=== PATIENT | female | born 1955 | race Caucasian/White ===

== ENCOUNTER 2024-01-15 08:56 | Outpatient (OUT) | payer MEDICARE, SELFPAY ==
[2024-01-15 09:36] LABS: Basophils Percent Auto 0.4 % (0.2-2.0); Eosinophils Absolute Auto 0.2 10^3/uL (0.0-0.7); Eosinophils Percent Auto 2.2 % (0.9-7.0); Hematocrit 44.4 % (36.0-48.0); Hemoglobin 14.7 g/dL (12.0-16.0); Immature Granulocytes Abs Auto 0.03 10^3/uL (0.00-0.03); Immature Granulocytes Pct Auto 0.4 % (0.0-0.5); Lymphocytes Absolute Auto 1.9 10^3/uL (1.2-3.8); Lymphocytes Percent Auto 28.1 % (20.5-60.0); Mean Corpuscular HGB Conc 33.1 g/dL (29.9-35.2); Mean Corpuscular Hemoglobin 30.6 pg (26.7-34.0); Mean Corpuscular Volume 92.5 fL (81.0-99.0); Mean Platelet Volume 9.2 fL (9.5-13.5); Monocytes Absolute Auto 0.5 10^3/uL (0.3-0.8); Monocytes Percent Auto 7.4 % (1.7-12.0); Neutrophils Absolute Auto 4.2 10^3/uL (1.4-6.5); Neutrophils Percent Auto 61.5 % (43.0-75.0); Platelet Count 290 10^3/uL (150-450); Red Cell Distribution Width 12.7 % (11.0-15.0); White Blood Count 6.8 10^3/uL (4.0-11.0)
[2024-01-15 10:06] LABS: Alanine Aminotransferase 27 U/L (14-59); Albumin Level 3.6 g/dL (3.4-5.0); Alkaline Phosphatase 97 U/L (46-116); Anion Gap 13.6; Aspartate Amino Transferase 16 U/L (15-37); BUN Creatinine Ratio 13.2; Bilirubin Total 0.6 mg/dL (0.2-1.0); Calcium 9.3 mg/dL (8.5-10.1); Chloride 106 mmol/L (98-107); Estimated GFR (African America >60 (>=60 mL/min/1.73m^2); Estimated GFR (Non-African Ame >60 (>=60 mL/min/1.73m^2); Free T3 2.03 pg/mL (2.18-3.98); Globulin 3.5 g/dL; Glucose 95 mg/dL (74-106); Potassium 4.6 mmol/L (3.5-5.1); Sodium 143 mmol/L (136-145); Thyroid Stimulating Hormone 2.135 uIU/mL (0.358-3.740); Total Protein 7.1 g/dL (6.4-8.2)
[2024-01-15 10:35] LABS: Estimated Average Glucose 117 mg/dL; Glycohemoglobin A1C 5.7 % (4.5-6.2)
== END 2024-01-15 08:57 | disposition home or self-care (01) ==
LOC: LAB 09:00
PROVIDERS: PCP Family Medicine; Visit Provider Family Medicine
DX: G47.33 Obstructive sleep apnea (adult) (pediatric) (principal); M17.9 Osteoarthritis of knee, unspecified; R53.83 Other fatigue; R73.09 Other abnormal glucose; D64.9 Anemia, unspecified; E03.9 Hypothyroidism, unspecified; I11.0 Hypertensive heart disease with heart failure
CPT/HCPCS: 36415; 80053; 83036; 83540; 83880; 84436; 84443; 84481; 85025

== ENCOUNTER 2024-01-24 08:54 | Outpatient (OUT) | payer MEDICARE, SELFPAY ==
--- OUTSIDE RECORDS SUMMARY | 2024-01-24 08:59 | XMS_ITS | CCD ---
Author Organization [facility] Care Team Providers Care Mail Handler Name Role Phone LIOR GILLIAM Unavailable Unavailable CLAUDINE YATES Unavailable Unavailable KINCAID EMILIANO G Unavailable Unavailable MARIELENA GASTELUM Unavailable Unavailable KINCAID, EMILIANO G Unavailable Unavailable EVETTE SHABAZZ DELILAH Unavailable Unavailab Lior Stephen Unavailable Unavailable CODI EMILIANO G Unavailable Unavailable EVETTE SHABAZZ Unavailable Unavailab Lior Stephen Unavailable Unavailable JOSE KINCAIDMELA G Unavailable Unavailable Lior Gilliam Unavailable Unavailable EVETTE SHABAZZ Unavailable Unavailab JOSE DiazMELA G Unavailable Unavailable EVETTE SHABAZZ Unavailable Unavailab Lior Stephen Unavailable Unavailable YO, DR TINAJERO Primary Care Unavailable NILL, DR WISEMAN Admitting Unavailable NILL, DR WISEMAN Consulting Unavailable NILL, DR WISEMAN Attending Unavailable REMEDIOS HILL Consulting Unavailable ALEXYS RASCON Consulting Unavailable MISC, DR MILLS Primary Care Unavailable NILL, DR WISEMAN Admitting Unavailable NILL, DR WISEMAN Attending Unavailable YO, DR TINAJERO Admitting Unavailable MISC, DR MILLS Primary Care Unavailable YO, DR TINAJERO Attending Unavailable YO, DR TINAJERO Admitting Unavailable YO, DR TINAJERO Primary Care Unavailable YO, DR TINAJERO Consulting Unavailable YO, DR TINAJERO Attending Unavailable WANDER, DR ALEXYS Lynch Consulting Unavailable AIDEN JENKINS Admitting Unavailable AIDEN JENKINS Consulting Unavailable MISC, DR MILLS Primary Care Unavailable AIDEN JENKINS Attending Unavailable AIDEN JENKINS Attending Unavailable AIDEN JENKINS Admitting Unavailable CRESCENCIO, DR MILLS Primary Care Unavailable WANDER, DR ALEXYS Lynch Consulting Unavailable AIDEN JENKINS Consulting Unavailable MISC, DR MILLS Primary Care Unavailable BRIANNE LOPEZ Attending Unavailabl e CLOBRIANNE SAWANT Admitting Unavailabl e BRIANNE LOPEZ Admitting Unavailabl e DR GENE PRATHER Primary Care Unavailable BRIANNE LOPEZ Attending Unavailabl e HOY, LIOR Primary Care Unavailable DonteGracy Attending Unavailable Donte Gracy Admitting Unavailable HOY, LIOR Attending Unavailable HOY, LIOR Admitting Unavailable HOY, LIOR Primary Care Unavailable HOY, LIOR Primary Care Unavailable Shendge, Vithal B Attending Unavailable Shendge, Vithal B Admitting Unavailable SHENDGE, VITHAL Referring Unavailable SHENDGE, VITHAL Attending Unavailable SHENDGE, VITHAL Attending Unavailable SHENDGE, VITHAL Attending Unavailable SHENDGE, VITHAL Referring Unavailable SHENDGE, VITHAL Referring Unavailable Allergies Allergy Classification Reported Allergen(s) Allergy Type Date of Onset Reaction(s) Facility (4 sources) Penicillins; Translations: [penicillins] Propensity to adverse reactions to drug (disorder) 3 [facility] Repository (1 source) bee venom Drug allergy (disorder) [facility] Repository (1 source) Penicillin Drug Allergy 0 [facility] Repository (1 source) Bee/Wasp/Ant venom; Translations: [Bee Stings] Propensity to adverse reactions (disorder) [facility] Repository (1 source) Bee pollen; Translations: [BEE POLLEN] Propensity to adverse reactions to drug (disorder) 4 [facility] Repository Problems Active Problems Problem Classification Problem Date Documented Da te Episodic/Chronic Deficiency and other anemia (4 sources) Iron deficiency anemia, unspecified; Translations: [IRON DEFICIENCY ANEMIA UNSPECIFIED] Onset: 07-19-2021 Episodic Diabetes mellitus with complications (5 sources) Type 2 diabetes mellitus with diabetic neuropathy, unspecified; Translations: [Type 2 diabetes mellitus with hyperglycemia] Onset: 10-10-2020 Chronic Diabetes mellitus without complication (1 source) Type 2 diabetes mellitus without complications; Translations: [TYPE 2 DM WITHOUT COMPLICATIONS] Onset: 07-25-2021 Chronic Digestive congenital anomalies (1 source) Other specified congenital malformations of intestine; Translations: [OTH SPEC CONGEN MALFORM INTESTINE] Onset: 07-25-2021 Chronic Disorders of lipid metabolism (2 sources) Pure hypercholesterolemia , unspecified; Translations: [Familial hypercholesterolemia ] Onset: 11-14-2020 Chronic Diverticulosis and diverticulitis (1 source) Diverticulosis of large intestine without perforation or abscess without bleeding; Translations: [DVRTCLOS LG INT NO PERF/ABSC W/O BL] Onset: 07-25-2021 Chronic Essential hypertension (1 source) Essential (primary) hypertension; Translations: [ESSENTIAL PRIMARY HYPERTENSION] Onset: 11-14-2020 Chronic Nonspecific chest pain (4 sources) Other chest pain; Translations: [OTHER CHEST PAIN] Onset: 09-12-2021 Episodic Osteoarthritis (2 sources) Unilateral primary osteoarthritis, left knee; Translations: [Unilateral primary osteoarthritis, left knee] Onset: 09-12-2022 Chronic Other aftercare (1 source) [facility] (current) use of aspirin; Translations: [PENITENTIARY CURRENT USE OF ASPIRIN] Onset: 07-25-2021 Episodic Other aftercare (1 source) 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; Translations: [OTH PENITENTIARY CURRENT DRUG THERAPY] Onset: 07-25-2021 Episodic Other connective tissue disease (2 sources) Presence of right artificial knee joint; Translations: [Presence of right artificial knee joint] Onset: 01-25-2023 Chronic Other gastrointestinal disorders (1 source) Bariatric surgery status; Translations: [BARIATRIC SURGERY STATUS] Onset: 07-25-2021 Episodic Other non-traumatic joint disorders (1 source) Pain in right shoulder; Translations: [Pain in right shoulder] Onset: 08-11-2017 Episodic Other nutritional; endocrine; and metabolic disorders (1 source) Obesity, unspecified; Translations: [OBESITY UNSPECIFIED] Onset: 07-25-2021 Chronic Other nutritional; endocrine; and metabolic disorders (3 sources) Body mass index (BMI) 45.0-49.9, adult; Translations: [BODY MASS INDEX BMI 45.0-49.9 ADULT] Onset: 07-25-2021 Chronic Other nutritional; endocrine; and metabolic disorders (2 sources) Morbid (severe) obesity with alveolar hypoventilation; Translations: [Morbid (severe) obesity with alveolar hypoventilation] Onset: 06-10-2023 Chronic Residual codes; unclassified (1 source) Obstructive sleep apnea (adult) (pediatric); Translations: [OBSTRUCTIVE SLEEP APNEA] Onset: 07-25-2021 Chronic Residual codes; unclassified (1 source) Acquired absence of both cervix and uterus; Translations: [ACQUIRED ABSENCE BOTH CERVIX AND UTERUS] Onset: 07-25-2021 Episodic Rheumatoid arthritis and related disease (1 source) Rheumatoid arthritis, unspecified; Translations: [RHEUMATOID ARTHRITIS UNSPECIFIED] Onset: 07-25-2021 Chronic Unclassified (1 source) Obesity, class 3; Translations: [Obesity, class 3] Onset: 01-13-2024 Past or Other Problems Problem Classification Problem Date Documented Da te Episodic/Chronic Other acquired deformities (2 sources) Varus deformity, not elsewhere classified, left knee; Translations: [Varus deformity, not elsewhere classified, left knee] Onset: 06-10-2023 Episodic Other lower respiratory disease (4 sources) Other forms of dyspnea; Translations: [OTHER FORMS OF DYSPNEA] Onset: 10-12-2020 Episodic Other non-traumatic joint disorders (2 sources) Pain in left knee; Translations: [Pain in left knee] Onset: 01-25-2023 Episodic Other nutritional; endocrine; and metabolic disorders (1 source) Overweight; Translations: [OVERWEIGHT] Onset: 11-14-2020 Episodic Residual codes; unclassified (1 source) Edema, unspecified; Translations: [EDEMA UNSPECIFIED] Onset: 11-14-2020 Episodic Superficial injury; contusion (3 sources) Blister (nonthermal), right lower leg, initial encounter; Translations: [Contusion of left knee, initial encounter] Onset: 11-14-2020 Episodic Unclassified (1 source) Obesity, class 3; Translations: [Obesity, class 3] Onset: 01-13-2024 Results Test Name Value Interpretation Reference Range Facility Follow-Upon 01-13-2024 Follow-Up [id number] Radha Boone 1955 F Date Provider Department Center 01/13/2024 [facility] No family history on file Level of Service:88130 AL OFFICE/OUTPATIENT ESTABLISHED MOD MDM 30 MIN (GC,57) Reason for Visit and Comments: Pain [136] Follow-up [181853] Pain [136] Follow-up [[id number]] [facility] 36on 09-12-2023 36 This was already approved and signed by me, future prescriptions have to come from her PCP, if seen by them. Thank you Aaron [facility] 36on 09-11-2023 36 Approving, but needs appt for additional refills. [facility] 36 Patient states medication was never called in and her call was never returned regarding request of motrin 800 Please call patient with further instruction thank you [facility] 36on 09-09-2023 36 [facility] for [facility] 09-09-2023 Refill [id number] Radha Boone Cally 1955 F Date Provider Department Center 09/09/2023 ATYIA BEARD [facility] OR[facility] MP[facility]THO No family history on file Reason for Visit and Comments: Med Refill [[id number]] [facility] Refillon 08-08-2023 Refill [id number] Radha Boone Cally 1955 F Date Provider Department Center 08/08/2023 [facility] No family history on file Reason for Visit and Comments: Med Refill [[id number]] [facility] Refillon 07-12-2023 Refill [id number] Radha Boone 1955 F Date Provider Department Center 07/12/2023 83NUPUR VANCE ORTHO MPORTHO No family history on file Reason for Visit and Comments: Med Refill [[id number]] [facility] Coding Queryon 06-20-2023 Coding Query [id number] [facility] Coding Summaryon 06-19-2023 Coding Summary HTMLBase 64 FbvswkmiDBd6sYc+PGhlY WQ+QC2PPTPnE16nrVSleI 7uV5LFSJoQYzgmVOGUVEy BNvTytiIgYU1thSRcOPYu IC8+RU2cATRdJzulsGPqb 0U3jKW6Z49iha4iAFcinN V8ZXLyGaPxdjwgw8bhsIf 6IDcuNmluOyBt SHQryC63YER1iL35Qu32k FNqhBXpy9iviWg4JiCqRF HcRUM5iDepMHgns4GrCWV dG39unFCzd1Z4 BWYgxHrnqLZwIfDorGJ0g Y3tQVajtyube3oeqloeSf n6yv95vNGkh9O0mAH9D8M jkjY3AJFavJXt CmhgmPDCyM1xnkokf7kvb umiSgUqFVWaOLe5LXv8JD WjfAzxHvMrZW57YOE2TTS ayiLeN3BnFSIs jAnzOcZ6h6V8Aq1PX2SYU kymH0VAITYTNMadtIW+PC 39cj55C0TbJwnuBqh3UEP eLLB9jTS1yU4b XXNuADiid8J2jJF3C3Dpz zKzds5tx4idDSMyDDkyM7 8rbNZjd1W8IZMqyOZ7KHX zqDaaZqJnnQ94 Oyc+PSBllRknn0NtUviuh 1zda7uroXj3BgjdFYFmze IshCviUMQ9i6IcAi8vHVS wsGJ0dGI2rY3n YzVsSgF2RGajZ970LnRik HThWlymX65sH5DrpVI+PH FvCkn1PMDkzMddVH3vA9E hZGRpbmctbGVm jOofSQ5aPSIferqiPOJps C0ySLMvY2x3OoHjJqX0FB agO0EcLTQhmytrWm18cV0 aBmAsMzC0TWsp C4UxtkP6UKQefTHsKSodD PK8S16tq2G4BYAxPJVdTV Q9rGY9xV5hnWlscuhpdNT mdDsgdmVydGlj WSxlKRhnZ256CIWjhApbH kNvZGluZyBEYXRlOiAgMD UvMDgvMjAyNDwvdGQ+PHR fSUG8iJdrOGPx eTFtTTnsVl3alXlorQubV N1gZHQffhekBADpjP7nBS UkmLJhpGzcFB8vCKLdjsr ew520YiZuGDJ3 XCIxdNZrD8YxeA8eTcAyJ IWtDEJjA4NvwDDoXZvyK8 23PEbmLbK6BAIcsgQoP9H sLWFsaWduOiB0 q4B8Vt8Yt9RzncpwI8Zks ETxXeIcBnzuSFv5K7CiQc wvdHI+RE61ZJZfGU71YOq 6UFC0qIugCDzf MWKzV0GabU7cYlFyCZXgG GRkOyc+PHRhYmxlIHdpZH RoPScxMDAlJyBzdHlsZT0 kQl7qGLJuUPHb iLodxALjCxQzo8bvFAYmF SuvJQ0nxZqoG9XazZC7RB Cah7j4Af15V39lU3EshBP +LTBwgDA1nXJ9 kC0rQfTpMxI2AUusY789M vTndICvNwnie5feu5hucA w4MlE0WXZwzgMkiUxtIUM 2f1XtDd34S24t IHdpZHRoPSIxNSUiIHZhb Dowhb6ngU9xXa7+PGNvbC W5iJD2hN5mQoTfFoH4ZTm tV272CcFalJDn Pxbhe6lcx3lrxKu1NgYlJ DNrclJhyGtnTZN0j6JdLh 40X0DrdDakp4JtWxs2dz1 2gIQel6R4uQP2 T9FfALSpllvelPQusQseS S2gHETirknsCNDunJ5rIL NwB1c0UiVuZeI4AJlgB7K rkxN3QYQqlKHd EVVnvWQOxB2kgcfhh1nzu snmSySeNRNgQTc5TFg4VS OkbXpgAbVoNLS3OeI2VPR 2rPHhjM5ooIqe ebyjpH4sOti+MUE0iYYva XWZNP0qAmoapCS+PHRkIH C8yCjhPDjkDBMmcM5bCDP rK8t0OtSzDuB1 WYbjP8NsjqC9JWRoxMIlC GXoeFOPhZ2ymqaie0fsml lkRvQwCTQeZUh2DJy3FVN saWduOiBsZWZ0 UnI6GVA0uEMxkZ4yrNqza sigsF2xJsu+QmlydGggRG J3UWq0X1PhNay1WSNcsDw fET5neDDuMSbv Yd0mgQjdjQlnMG7rFYFwq dalk699PjCnt4pbISQpcB UlGExiOVC5X38tw7W6QDU pROUqLWO6fOU1 nW5flCorpapfaKAazXwlp mXgeGniGYykCZupX080NS CaxMyfSuGaLBu7Y7TzNtw 0ILJmfQodHU4a jQMyVTfoDb7loAnooTrmE O8kJGAqbybcq432MxYsu0 deKVJnyJKtWYwuECI7F77 zs3J4CWFnBLLq KIY7wPD0oH4pkIuernsom GVmdDsgdmVydGljYWwtYW ejA605CWTjfHwcQiSohVi 5F6TwJkz1PDCl cWglJB6fdLKxZIuoWe0qk IuyvMfwPZ6gFUNvwqmnf7 66McXln6yrLHRyhAXfCVq wQGL6K35zt5C4 TALxXSCiVAQ5gBU4lP4sw GlnbjogbGVmdDsgdmVydG nkIVjhCNybG011SVScgUp nPlBhdGllbnQg WZahSZw1F1IdQugpsXA+P U91VWFvWW54vYLvhWWge1 ulzXx7PvRiOWRzKGY6pMj aERuyi6ObVTAz S70cbSDmu1Q0EPNnwYwse QUzYjEmtAE0cK9zPNunbw fnb8vkaadoDqqfs1hbxm7 3uK85D12aLSrd ZHRoPSIzMCUiIHZhbGlnb l9rfS5fPt9+WSOzhZM5uK B4yE9lOIMbHaR0GBywI91 9InRvcCIvPjxj g1qee5wmbOu5SbI7OQFbw nDdxLtyWNZ5s9IxCn89J5 9sIHdpZHRoPSIyMCUiIHZ raGasmc3kmV8i Ii8+MXMtwPR4tPE4sF6jI yBlJnE7IMymC296ZgGjqH CuMcacE79qI1EzdOS+PHR qRxh9UGUfdFhk TX4kaJZtJPcgXn9cPKH1J jXmAhYyCJjbY7VfIGKwtu flohdqpWC2BGLrSGWmsY0 6Xs2kbBrfGMUd kYITzA6uzehlh7sdacnaF bVhNYXbKPc0QDx4PRMieK jzWeOtUGN6PvT8AYB5kGW xgT2frVlwhjkq aW5vZ4GlNIFrttkoUe73x D0jEwBaTvF9OGkfCzc+SE 7OMd8ROeulL36IWPBqHVr vdGQ+PHRkIHN0 qHxnBDajXKXztK6qBGSqY 0o0BpOjZpF8WOafP0YmQJ PylougAe87fA8sSiOfEyZ 4UEzfJ3SmojX0 WFFbaMQdLLazTIS8R14cu 7I1BHAqXSRuMKH4jKG8rB 1hbGlnbjogbGVmdDsgdmV ydGljYWwtYWxp X653WKUotKgdEwR1QjWaH cA6LSB7K6BgVut5CRLpsS mrPJ9phSFkUMfaSx3zqQw lwTfbMC5tILDs sqahKEFaaB4vDRZjrDRqc KjqOU7nYSQcmdtpm600Jc GcIOG5GZDipHYiG0WuzY6 yOiAjMDAwMDAw C4VepEFkUNlwV942ZKwjN sY2CNGojjRhI9BqSUCubM uwIqT4p4T3Wf84ZdOWMQZ yczwvdGQ+PHRk WCA8nEhaBBmnWEOqjD8pR FUbW2j0CaRkImD9LEcfP2 ByGTLwkmzjOx80dG1xWeY lKjI5OEwrA9Jf acH0BLZzkZAfROrkNUN7P 56sq6N7ATXtRLCwPEG3vX Y1bY8iuVhykevbjREzcLj gdmVydGljYWwt RSpbD504IKZcoWawWvTHX UFMRTwvdGQ+FUEfBOM9gW ezEGnaCYNsuO0hADFzA4f 3FmArRkA7VJmj T5FiJBZswkiqCh08vN4yX yPbXyK7AGabX1ApdyH0DO JpbMQwUFqbJUI2E85am2L 1LQFxBFRdAFG7 jNN6dD0bvOqcsijxgYSpg DsgdmVydGljYWwtYWxpZ2 08GYGasNycPh1SFC04LI7 4V0YvLcyyhMGm bGU+PHRhYmxlIHdpZHRoP HvgAEFlDlLeyFotPT2fHy 9yZGVyLWNvbGxhcHNlOiB rx8zmHCJjSPir UD4rySltM5BqkIM7YJJfr 9b4Oy21D81wS0BasNC+PG EssMF8dPL2bY2tRzIiMcS 5ZCxlA922TiBg rLHdPdzsb9hwf7bccLs6Z nGwTMYouhLphUpfHNP2g3 RyLc54E93tGVyjIKGsTIL yMCUiIHZhbGln ra6bzO5hGa7+KXDgqUS9z MO0tJ6rUkSsPtS4GHbbO7 21WrKstBZfVrgbD14jC3R vdXA+PHRyPjx0 CPRchYaqCN3crCMfRXybU v7sMFL1JlYsCaBqBUbrX9 TiLKAgvyiklmboaHI1FUL tDYDumJ30Uu8i tAnuTs2pYMApHMM6YJPxf SRaD7NpyX4gPbBgRESaLD SuL3AqmPQlAPqaW430MBj mMrF8RRPxjqHh M7PrCKMdbDipHbZ0m9W2G q4RlWlchDGjRY5zAmZePV s2W9VfMla7HZWsbShnBG8 erKLtDMbvWr9f oLexgKaaEN0qZVMjwgwxe 392KaJeq4saXJGhqQRvXK sySSY0E69hb8S9FCYoFCP qNCE1bZJ0lK2q bGlnbjogbGVmdDsgdmVyd TnrHOquHSerW026OLEmrV epAoNMCxz7S7TwSvo2UCF gkEsbLR8buGBp OKtnBs8ouPewmRfwGL2lT PPkpbudm604LoMxr5eoKC ErhFAdFAbsKCB4C34rx3O 4XTCsRYLyPKP1 nNZ5nU6lrYsbcttwxHTrv DsgdmVydGljYWwtYWxpZ2 41JCFkoNwqXf5IVso3D0W aYxh1KBLpxKms KG5jlTUdXWkiVl9bzRgcc CqdEI7qDYBfanvgt322Sw Dzu3axNKOqeTPxIPwpYCP 1O57iv6Z4PKKj JLOvXIS0nLT2rO2ltGizy jogbGVmdDsgdmVydGljYW joSAenA732EIMojVkgYaX heWVyOjwvdGQ+ RT29vx36J5MsXrsoSwy3G BIiBVI8mWU0kX1mHQIlJQ zjj5W0bOZ2Z7PpgmVxkd7 ju6lnWCFxDVba Y29 (more content not included)... [facility] Refillon 06-14-2023 Refill [id number] Radha Boone 1955 F Date Provider Department Center 06/14/2023 [facility] No family history on file Reason for Visit and Comments: Med Refill [[id number]] [facility] Coding Summaryon 06-10-2023 Coding Summary HTMLBase 64 JwzmzuyjHBx0cZr+PGhlY WQ+WT0SYXRuB50pjIRqwE 8qB3PDJUrLYzmnFQDAHIw OLmVmteCnYO7ffIMbFDLe IC8+HK2jYAQyYbamyRCbb 2F5fRL1I88zjc7eSAkvsO D4TEPbLcJsqbedn3wvdSq 6IDcuNmluOyBt YRDttQ83AYN5vO65Hy10b UWpdKRdj6chlJc8JiSpNR EeVZL2vXszEHlej3OfLYH bK94pbALcx1H9 WRBfqMhjrFNhCzBbqTB7g U0eUMjhvkzsx9llcpmaJq u7vv32aUBqt5Q5jUF0Z4C ovvV9OVYzpBGx EllpjPFVbR3rauwvs6saa gqeUkUnNPWtIYf5JPj8RS WyhPdcWzKcXC37ZMB0ZAX kffSuT8YfLKPh lUinWlZ0m4Y5Ms2GJ7GAN rczB3YKGWPEOBfvsAO+PC 26tb51D5VkNrxaDdd0FUE yOYO1vJN0qJ3s ESBwWXjkx9G5vHB1O3Rco lOslr7ls3esNABgTUxaQ4 5woECrw2F9FZEvsAD3NWN dhEmwYsUedF39 Oyc+SWWwsRxka1HqYhldc 6lwx1smdGa7WbahHPFmwr OshMykTPF4s7MyCb9dLER koRS3iGK5pQ3h MpOsMdM8GAkuF203WuSxe WDjOnbfW69yQ2VwnVS+PH PyDtp0CKTrhRrfXL7eB2V hZGRpbmctbGVm hOchMB5hHDUclgvlPWSbt G6dINIdY3e4BoUfZfX2EV vtM9KtBWVscsavGi24nP1 jKpXiMcC7JCoj B5SorvK8SJCrvOCsVHwsP BJ8R73vg4R7OIYbWYSxHW R0tIL5uK7hcTvfhfbpkNU mdDsgdmVydGlj LSpwHTywY618ZSZlcBwyT kNvZGluZyBEYXRlOiAgMD QvMjkvMjAyNDwvdGQ+PHR rSGI1tTvvTSFw vKHzFDokZg5dbAwaeJqpN L0pPOXbynaiCNKpmX4uTM LhgHAlyGmzUA0eTOWxpaw cp097TrJcRZN2 VDHqnXXgF6WrgJ8pFfEtV MXrBHTyQ9SvjAHsRLlpT3 34PJuuZqO1KZAsiyBgD4E sLWFsaWduOiB0 x4J8Is6Tx0VrjupuZ2Avo GZqFxTtKschSZo4V7FiGa wvdHI+GZ12YCYvGJ49FZy 5LEC9qTeiGRln RHOnI5FhzS1vQjBxJWEcW GRkOyc+PHRhYmxlIHdpZH RoPScxMDAlJyBzdHlsZT0 rBp8uQUPeFPQs rGpskLMiFxOwu0pzSDCoZ EkfGG8ivLeoM1BofYX3PM Vyu1b8Rb58E99iM5RhtOB +PLMtmGN7yJF4 vB6uLfYiWnB8UGooP708N yUxjLWxMjulv2ymw1ujkZ x3GpH0BOExhwYnbIplRMB 4f3IcVj11B70c IHdpZHRoPSIxNSUiIHZhb Orolf4geJ7qLh2+PGNvbC H4rXI5zL6zDcKcQmA6UUw bF770SfDwzHId Oalok7hjq0gouDb1VjIfM UGzjdZygMokDED5q1ObNi 73V3KlnEzpd6OsIxx3el0 4sJBfc0F5gUY1 X0CqXXQlavpajZUerUvqW P4sRMWtwfjlOGIocO4fZP OzB5m2InAcIpQ7GNjkD7K odqK9BSIykKYs QGEneDEYjX4cfkqlr8qat fgzXtScEULtJVx8GGs6MI BaoKixJiPdXWS2BvW8VYV 1hUMheF9fwMcm uajahK3oZim+MDQ5tPFcr BMMXS0fDaifgZR+PHRkIH V6yMbxJZxcMYUwtQ1sCNJ zE9s0FfOoViP6 NSetL9KdsmW2VYCxmLMaP WZotJOUjU7chfdob3wqne huYtObBWWmMYx1FBg3QVO saWduOiBsZWZ0 IxT3QRC9yDTnxK9cjCcjj wahxZ1iIud+QmlydGggRG C0LEq2F0NzQgt7BJDaxBj yHU8ejZYxMKoy Yr4hvBmzrYgoFP4fSLLnl jmgm595YjNag7drDWTshE ZhHLhrLPX0Y29dm9S6SGP lGGXeYSR7fGG4 gU5hwCkzadxfhROlyJrum kWkcMpzKJrhNMqjB108PO GgbMalRwJcTKy4K2KyAcl 0UUKbgYfpGO4c fJAtKTpeSy5gnAabdWztS M8hURWoxjxue777DxEpn5 yjHJXdyYVsYSrsSRQ4P59 th4I5CUQwYYFq DUG4uRK5bQ6tmBeashtbk GVmdDsgdmVydGljYWwtYW qyZ527APQstQesAtOctRi 5O2TtHhf7EWRu yXuaXY1egHFtFNwyWy3lk HiupVfdKD7aVFEbafdqd8 97YdJgx9axSVNppSDvTOe hTEB9J77tr4B3 IGQcHRCzKEY1bLS6hQ0et GlnbjogbGVmdDsgdmVydG duJXkeDSqgO851EJXypRw nPlBhdGllbnQg OBjzBJf6C9KiGhjgiMB+P A38XVPmYE98tUFmkQOrz8 lnuMp0KvNbXEXzAJA9kFt jYPttd1ZiLYZk P90ncCJco6H9SZJuqAzfg LElVsLciVC1uD6kPIhygz lqt8mnwclcTprks1fnbb1 4zE36D14lUSxs ZHRoPSIzMCUiIHZhbGlnb r8teZ7yTp1+DFMvmUO9dX X7qT5xOBQmEyH7MAqqC47 9InRvcCIvPjxj k2ynp3hahWo6SrZ7VSDul bGddUqqRCA5p0RoRz50L3 9sIHdpZHRoPSIyMCUiIHZ ilXsqfx6xqQ7o Ii8+IOOgyGA2uXF6sH3qY jQcZlR4TEuyA744AhTnjX KvUcpcE04uP5BvvES+PHR sNrj7PYLtrIsj RH7idXZbWYruOm8bFXD6M bGwFiBcTYijR0SvKVOigi zrworegNF4BGKyAYKivM6 1Sj0wtIllSLNx tJCTgN7tkbihj7vuxthmZ eRzLLNwJCm8LMk6VRKwsB cjKsFgHBH9HhI3AAO9hTV lvB8nwXuphend mZ7qS5OnLGBdkiqhSu41w N2mSsWyCwL3RNprOxu+SE 3KSj5IHcysG41SNFCjSUs vdGQ+PHRkIHN0 pQhcMEhaRAFqzO0pBMPnO 6d4FqCgBiY6VRkeA0IoNY NkqxokZq21oG3aWpHiPhR 4SKgaG2WfpdZ6 EWCnnXNuNUurFCC1V96rj 5W6KCQiVNWaLEO4ePI6vT 1hbGlnbjogbGVmdDsgdmV ydGljYWwtYWxp V529XJLkgCsvVtC4EpRxX aX5JWC2S3GkZbe3WGTfcM lqTK5emMNnXXpqMm1fqUj ayFwpTO7zDJLp hvozGSQwjA2nLGKhwEZmz XbcDT5rUNXfhderj412Ci FkFMS0OLMvnGYzZ5RfnW1 yOiAjMDAwMDAw I2WkxVKjDHgbL097FGvaO xX3LLZgraPrZ0YrGGSyrE hlXbV3q8D1Tz73CeBNYTW yczwvdGQ+PHRk JXV5tFelENalBJFynI6oB ZNtZ4l6AlGxFhB3PYwgV2 IjIIWjinftKa95yR4eYgV eRyI1FAwqA6Yc ahI8WWXafATdTTjhFWE1N 13ql6Q9CWMvUYRkQDO4aR W9tG9ibBgiviogfDUxcFd gdmVydGljYWwt VSzpR313FOWyoNnrOaKPH UFMRTwvdGQ+MQUoVCR5sE bwLRsdNXTtsH3nWPMqZ4z 6VdRxGwC9MNfl G3YrOLQdwysoNw60eB5uD aIuHvE6CSbcP6RpxtG8NJ DecALkWQqzZEM5H81pt7A 1ZOJiIYOyNHT9 hLM4nF0xuNyrjhbhrWGhs DsgdmVydGljYWwtYWxpZ2 20LEApePbhHx5DRZ19JO2 9C0LeNcgkwIEk bGU+PHRhYmxlIHdpZHRoP QhtKUScPzKqwJpvDB9iNw 9yZGVyLWNvbGxhcHNlOiB ey8wiKTSkSTvn TQ2rvXtuF4MdyZL4MRFtz 1k2Qp89S92sL5MgxGL+PG RclBW7yKY9mC7vPrOwDoX 0WMzeX795BuAz xWPvZuhyu7ldb8cxeMk4S iAlUHKtzqQxsUxxGRW2n0 SgLz65V44tIMfbQLPzJPQ yMCUiIHZhbGln yj0vwY0xVu5+NSGkiPY8n XL5vO3oSpKdUlM6RQkuB9 20OgJglONkCnqnD57bK7H vdXA+PHRyPjx0 NFUmfAbuXX0zxIMkUQopP j7bISU5BmOhXhIoATouM7 ZtEXXvgsoyognopZT6YFQ qSHDxaI78Ih4r zZroKi8tNLQrHMQ8FCJji TUtO6PziD3rVaJfCCPwUP RoL4BvkWQtPEeoV748QWf oGeM8HOMxruXu Q6KvUWRzhPsbJeE2p4Q3N v6SqIvhrTJbNJ0gAzPlHR r0A9ToUmm4EZXffWrbLH3 reFByZRybXg3j qZsdjZqwBV5tHJFlgovxi 470RqWrt2iaLNSefTNwIL reTHQ2L29fj5A3BGVmFFL fGLO6kYH4jW8m bGlnbjogbGVmdDsgdmVyd BkiWCylISxpS438FSMamN dzNbMRYta0K9GvOxg1OOW qqUnsAY3biMWh OWieJc6ffGkraHzwZJ9cD JGobnbyz824KdCqr9kmNF EabKQfJHrxOCQ2M09yb0J 8YHQfASJvNSW4 lZE2fY9rkRvhqnylwIBuk DsgdmVydGljYWwtYWxpZ2 10WRMxxLziCk2AMcn9I1S fUto7QSBvzOxq UY2mdQUeDVhsFc7llGkuq XhwPQ2tYCMwlqgnj591Sy Los8meVVVshKAmOIcjFNH 4M83ly0N5ZFBh HYZdMAD9cUS5hX7biSvfq jogbGVmdDsgdmVydGljYW xaYIfoC261DGYglMrxLhA heWVyOjwvdGQ+ JH40lw92H4JoOixmXhi1F XSiAYX7aHZ8nJ1zHADyFQ kfx1G7aBY0O3HzdqYwac3 zb9laWODkBIbj Y29 (more content not included)... Normal [facility] Follow-Upon 06-10-2023 Follow-Up [id number] BooneRadha M 1955 F Date Provider Department Center 06/10/2023 [facility] No family history on file Level of Service:89934 AL OFFICE/OUTPATIENT ESTABLISHED MOD MDM 30 MIN (57) Reason for Visit and Comments: Pain [136] Follow-up [850477] Normal [facility] T3 Free LCon 06-05-2023 Triiodothyronine,Danilo e,Serum LC 2.4 pg/mL Invalid Interpretation Code 2.0-4.4 [facility] Comment on above: Result Comment: Perf ormed At: [facility] [address] [id number] Edgar Oconnell PhD Ph:[phone] Performed By: #### 1 [id number], [id number], [id number], [id number], [id number] ####[facility] (DEFAULT)[address] [place] [address] .Auto Diff 1on 06-04-2023 Auto [place] % 7 % Normal 02-22 [facility] Comment on above: Performed By: #### 1 [id number], [id number], [id number], [id number], [id number] ####[facility] (DEFAULT)[address] [place] [address] Baso Abs# 0.0 x10 Normal 0.0-0.2 [facility] Comment on above: Performed By: #### 1 [id number], [id number], [id number], [id number], [id number] ####[facility] (DEFAULT)[address] [place] [address] Basophils/100 WBC (Bld) 0.6 % Normal 0.2-2.0 [facility] Comment on above: Performed By: #### 1 [id number], [id number], [id number], [id number], [id number] ####[facility] (DEFAULT)[address] [place] [address] Eos Abs# 0.2 x10 Normal 0.0-0.4 [facility] Comment on above: Performed By: #### 1 [id number], [id number], [id number], 1414944, [id number] ####[facility] (DEFAULT)[address] [place] [address] Eosinophils/100 WBC (Bld) 4.2 % High 0.9-4.0 [facility] Comment on above: Performed By: #### 1 [id number], [id number], 29130145, 0441703, [id number] ####[facility] (DEFAULT)[address] [place] [address] Lymph Abs# 1.6 x10 Normal 1.3-2.9 [facility] Comment on above: Performed By: #### 1 [id number], [id number], [id number], [id number], [id number] ####[facility] (DEFAULT)[address] [place] [address] Lymphocytes/100 WBC (Bld) 29 % Normal 14-48 [facility] Comment on above: Performed By: #### 1 [id number], [id number], 21534446, 7257489, [id number] ####[facility] (DEFAULT)[address] [place] [address] [place] Abs# 0.4 x10 Normal 0.0-0.8 [facility] Comment on above: Performed By: #### 1 [id number], [id number], 00788142, 2208479, [id number] ####[facility] (DEFAULT)[address] [place] [address] Neut Abs# 3.3 x10 Normal 1.5-9.2 [facility] Comment on above: Performed By: #### 1 [id number], 10540242, 14064625, 2452498, [id number] ####[facility] (DEFAULT)[address] [place] [address] Neutrophils/100 WBC (Bld) 59 % Normal 44-88 [facility] Comment on above: Performed By: #### 1 [id number], [id number], 26024460, 7557015, [id number] ####[facility] (DEFAULT)[address] [place] [address] CBC w/ Auto Diffon 4 Erythrocyte distribution width (RBC) [Ratio] 13.6 % Normal 11.5-15.0 [facility] Comment on above: Performed By: #### 1 [id number], [id number], [id number], [id number], [id number] ####[facility] (DEFAULT)[address] [place] [address] Hematocrit (Bld) [Volume fraction] 40.4 % Normal 33.7-40.4 [facility] Comment on above: Performed By: #### 1 [id number], 67405921, 14706457, 1433262, 86245852 ####[facility] (DEFAULT)[address] [place] [address] Hemoglobin (Bld) [Mass/Vol] 13.7 g/dL Normal 11.3-15.9 [facility] Comment on above: Performed By: #### 1 [id number], [id number], 93203744, 2200429, 81654706 ####[facility] (DEFAULT)[address] [place] [address] Man Diff? Auto Invalid Interpretation Code [facility] Comment on above: Performed By: #### 1 [id number], 12083392, 75444043, 6456602, 68808181 ####[facility] (DEFAULT)[address] [place] [address] 43108 MCH (RBC) [Entitic mass] 32 pg Normal 24-34 [facility] Comment on above: Performed By: #### 1 [id number], 38474960, 59406061, 8226378, 57544988 ####[facility] (DEFAULT)[address] [place] [address] 54052 MCHC (RBC) [Mass/Vol] 34 g/dL Normal 26-37 [facility] Comment on above: Performed By: #### 1 [id number], 85834025, 04014256, 4735718, 62667500 ####[facility] (DEFAULT)[address] [place] [address] 09891 MCV (RBC) [Entitic vol] 93 fL Normal 81-100 [facility] Comment on above: Performed By: #### 1 [id number], 07047982, 92215949, 4237749, 11439483 ####[facility] (DEFAULT)[address] [place] [address] 56480 Platelet 228 x10 Normal 138-427 [facility] Comment on above: Performed By: #### 1 [id number], 67366711, 50334972, 2442038, 11372926 ####[facility] (DEFAULT)[address] [place] [address] 19363 Platelet mean volume (Bld) [Entitic vol] 7.8 fL Normal 6.3-10.2 [facility] Comment on above: Performed By: #### 1 [id number], 94103411, 60995481, 6492734, 39995567 ####[facility] (DEFAULT)[address] [place] [address] 02208 RBC 4.34 x10 Normal 3.70-5.30 [facility] Comment on above: Performed By: #### 1 [id number], 36690647, 64091049, 4127864, 28984755 ####[facility] (DEFAULT)[address] [place] [address] 83924 WBC 5.6 x10 Normal 3.5-10.5 [facility] Comment on above: Performed By: #### 1 [id number], 38041373, 44400195, 5499555, 61898264 ####[facility] (DEFAULT)[address] [place] [address] CMP Standardon 06-04-2023 eGFR Non AA >60 Invalid Interpretation Code [facility] Comment on above: Performed By: #### 1 [id number], [id number] ####[facility] (DEFAULT)[address] [place] [address] eGFR AA >60 Invalid Interpretation Code [facility] Comment on above: Performed By: #### 1 [id number], [id number] ####[facility] (DEFAULT)[address] [place] [address] 92296 Albumin [Mass/Vol] 3.8 g/dL Normal 3.5-5.0 [facility] Comment on above: Performed By: #### 1 [id number], [id number] ####[facility] (DEFAULT)[address] [place] [address] Alk Phos 79 IU/L Normal 32-91 [facility] Comment on above: Performed By: #### 1 [id number], [id number] ####[facility] (DEFAULT)[address] [place] [address] 38587 ALT [Catalytic activity/Vol] 27.0 U/L Normal 14.0-54.0 [facility] Comment on above: Performed By: #### 1 [id number], [id number] ####[facility] (DEFAULT)[address] [place] [address] 40359 AST [Catalytic activity/Vol] 20 U/L Normal 15-41 [facility] Comment on above: Performed By: #### 1 [id number], [id number] ####[facility] (DEFAULT)[address] [place] [address] 85356 Bili Total 1.0 mg/dL Normal 0.3-1.2 [facility] Comment on above: Performed By: #### 1 [id number], [id number] ####[facility] (DEFAULT)[address] [place] [address] 87548 Calcium [Mass/Vol] 8.9 mg/dL Normal 8.9-10.3 [facility] Comment on above: Performed By: #### 1 [id number], [id number] ####[facility] (DEFAULT)[address] [place] [address] 74698 Chloride [Moles/Vol] 108 mmol/L Normal 101-111 [facility] Comment on above: Performed By: #### 1 [id number], [id number] ####[facility] (DEFAULT)[address] [place] [address] 57939 CO2 [Moles/Vol] 23 mmol/L Normal 21-32 [facility] Comment on above: Performed By: #### 1 [id number], [id number] ####[facility] (DEFAULT)[address] [place] [address] 51921 Creatinine [Mass/Vol] 0.72 mg/dL Normal 0.60-1.30 [facility] Comment on above: Performed By: #### 1 [id number], 813790552 ####[facility] (DEFAULT)[address] [place] [address] 14649 Glucose [Mass/Vol] 92.0 mg/dL Normal 74.0-118.0 [facility] Comment on above: Performed By: #### 1 [id number], [id number] ####[facility] (DEFAULT)[address] [place] [address] 82847 Potassium [Moles/Vol] 4.1 mmol/L Normal 3.6-5.1 [facility] Comment on above: Performed By: #### 1 [id number], [id number] ####[facility] (DEFAULT)[address] [place] [address] 91784 Protein [Mass/Vol] 6.8 g/dL Normal 6.5-8.1 [facility] Comment on above: Performed By: #### 1 [id number], [id number] ####[facility] (DEFAULT)[address] [place] [address] 79458 Sodium [Moles/Vol] 138.0 mmol/L Normal 136.0-144.0 [facility] Comment on above: Performed By: #### 1 [id number], [id number] ####[facility] (DEFAULT)[address] [place] [address] 53529 Urea nitrogen [Mass/Vol] 15 mg/dL Normal 8-26 [facility] Comment on above: Performed By: #### 1 [id number], 850954768 ####[facility] (DEFAULT)[address] [place] [address] 05832 Albumin/Globulin [Mass ratio] 1.2 {ratio} Low 1.4-2.6 [facility] Comment on above: Performed By: #### 1 [id number], [id number] ####[facility] (DEFAULT)[address] [place] [address] 39678 Anion gap [Moles/Vol] 11.1 mmol/L Normal 5.0-19.0 [facility] Comment on above: Performed By: #### 1 [id number], [id number] ####[facility] (DEFAULT)[address] [place] [address] 22755 Globulin (S) [Mass/Vol] 3.0 g/dL Normal 1.5-4.3 [facility] Comment on above: Performed By: #### 1 [id number], 117552514 ####[facility] (DEFAULT)[address] [place] [address] Osmolality 276 mOsm/L Invalid Interpretation Code [facility] Comment on above: Performed By: #### 1 [id number], [id number] ####[facility] (DEFAULT)[address] [place] [address] 82511 Urea nitrogen/Creatinine [Mass ratio] 20.8 mg/mg High 4.6-16.2 [facility] Comment on above: Performed By: #### 1 [id number], [id number] ####[facility] (DEFAULT)[address] [place] [address] 86379 HgbA1c Standardon 06-04-2023 .Hb 13.9 Invalid Interpretation Code [facility] Comment on above: Performed By: #### 1 [id number], 41404830, 18835735, 6081206, 91909027 ####[facility] (DEFAULT)[address] [place] [address] 47288 .Hgb A1c 0.46 g/dL Invalid Interpretation Code [facility] Comment on above: Performed By: #### 1 [id number], 02844888, 14340336, 9521256, 34115704 ####[facility] (DEFAULT)[address] [place] [address] 47011 Glucose [Mass/Vol] 100 mg/dL Invalid Interpretation Code [facility] Comment on above: Performed By: #### 1 [id number], 14468007, 12237853, 6508621, 97468912 ####[facility] (DEFAULT)[address] [place] [address] 32508 HbA1c (Bld) [Mass fraction] 5.1 % Normal 4.6-6.2 [facility] Comment on above: Performed By: #### 1 [id number], 66638926, 57501672, 5450132, 69617045 ####[facility] (DEFAULT)[address] [place] [address] 89644 Lipid Panel Standardon 06-03 Cholesterol [Mass/Vol] 183.0 mg/dL Normal 66.0-200.0 [facility] Comment on above: Performed By: #### 1 [id number] ####[facility] (DEFAULT)[address] [place] [address] 21758 Cholesterol in HDL [Mass/Vol] 37 mg/dL Low 40-71 [facility] Comment on above: Performed By: #### 1 [id number] ####[facility] (DEFAULT)[address] [place] [address] 97932 Cholesterol in LDL [Mass/Vol] 111 mg/dL High 1-100 [facility] Comment on above: Performed By: #### 1 [id number] ####[facility] (DEFAULT)[address] [place] [address] 93593 Cholesterol.total/Ch olesterol in HDL [Mass ratio] 4.9 {ratio} High 0.0-4.5 [facility] Comment on above: Performed By: #### 1 [id number] ####[facility] (DEFAULT)[address] [place] [address] 66440 Triglyceride [Mass/Vol] 177.0 mg/dL High 0.0-150.0 [facility] Comment on above: Performed By: #### 1 [id number] ####[facility] (DEFAULT)[address] [place] [address] VLDL. 35 mg/dL Normal 5-40 [facility] Comment on above: Performed By: #### 1 [id number] ####[facility] (DEFAULT)[address] [place] [address] Provider Orderson 06-04-2023 Provider Orders [id number] .[id number] Normal [facility] T4, Totalon 06-04-2023 T4 [Mass/Vol] 8.85 ug/dL Normal 6.09-12.23 [facility] Comment on above: Performed By: #### 1 [id number], 89485977, 98996444, 3630555, 20173471 ####[facility] (DEFAULT)[address] [place] [address] Thyroid Panel 4on 06-04-2023 T3 Uptake. 47 % Normal 32-48 [facility] Comment on above: Performed By: #### 1 [id number], [id number] #### [facility] (DEFAULT) [address] [place] [address] T4 [Mass/Vol] 8.15 ug/dL Normal 6.09-12.23 [facility] Comment on above: Performed By: #### 1 [id number], [id number] #### [facility] (DEFAULT) [address] [place] [address] TSH Qn 2.28 m[IU]/L Normal 0.45-5.33 [facility] Comment on above: Performed By: #### 1 [id number], [id number] #### [facility] (DEFAULT) [address] [place] [address] T7 3.80 Normal 1.94-5.91 [facility] Comment on above: Performed By: #### 1 [id number], [id number] #### [facility] (DEFAULT) [address] [place] [address] 36on 05-22-2023 36 Approving, but needs appt for additional refills. [facility] 36on 05-21-2023 36 Patient is requestin g a refill of ibuprofen Allergies on file Pharmacy on file [facility] 36on 04-22-2023 36 Approving, but needs appt for additional refills. [facility] 36on 03-25-2023 36 Medications sent patient notified. [facility] 36 Patient requesting a refill of motrin 800. Gabriela ding isaac. Allergies on file. [facility] Physical Therapy Noteon 01-12 Physical Therapy Note [id number]#1.0 0OTGTIFF [facility] Follow-Upon 01-25-2023 Follow-Up [id number] Radha Boone 1955 F Date Provider Department Center 01/25/2023 BLAKE TAYLOR MP ORTHO MPORTHO No family history on file Level of Service:31170 AL OFFICE/OUTPATIENT ESTABLISHED MOD MDM 30-39 MIN () Reason for Visit and Comments: Post-op [483] Pain [136] [facility] Vitamin B1 (Thiamine) Whl Bl ood LCon 12-06-2022 Vit B1 Whl Bld LC 171.9 nmol/L Invalid Interpretation Code 66.5-200.0 [facility] Comment on above: Result Comment: This test was developed and its performance characteristics determined by [facility]. It has not been cleared or approved by the Food and Drug Administration. Performed At: [address] [id number] Luis Robbins MD Ph:[phone] Performed By: #### 2 [id number], 4974829, 8052061, 5551055, 2814305, 0166427, 69295157, [id number], 812350820, 0723030, 94308837 ####[facility] (DEFAULT)[address] [place] [address] Coding Summaryon 12-04-2022 Coding Summary HTMLBase 64 PnjybhqfAHu4cLp+PGhlY WQ+HT7HXJIyQ42dtMSorZ 3uK2RGUHtTUkhkVQOOFAt VJbTtwkFtIC1njAVhQNZw IC8+IZ7gRWVuOhpsjUEos 7W5iNL4Q06yud4jXJrkcY Q1KJRaGtXeeapck7ddqVo 6IDcuNmluOyBt BZDjaY57ZBV8wW74Ob40s XHeuKDsr1xszOj4NoFyTY HuKNL4qOecDXmdc1GnXST fT89jeHXxb9Y2 MLLkpJsyuUNiRhEvlLL9v I3wFDffpxken8sdhjijRs g4zm32cFXwz0M4bYC3J6T oeqZ4QMRilGZc AlzjdLRUiA5decxem1dmc xdoPqLoEGWgBUa2YNf6JO VhmWbdWyLiEP44WQB0XFF lvhIhY6RdQPOz rJokHxK1z8Y5Gp5XE4KHR ltdI4MJUTIAUFyviOM+PC 43tr28M2QdLpyhUbp5BJY uFLH1tUL3tJ7u ZOWqCRhyi5Q7sLY9V1Ioi lYphg0ux2hrLGBoCUsxZ6 6nzKSdm0G1ZNBxfSM4KBX dsPibArVscF89 Oyc+SSRkeFjeo0NoZlprb 4ibr0jqyYp0WqqgAGRefy PneEgfPSN3x1FjRh9lKPE asJK4lRZ8rZ5c AiVkJyZ2QUteT005HpLwm EGsFbyoD96tD9TchTS+PH AqUup8ZEVwyXhoHJ9hX3I hZGRpbmctbGVm bOxyEP7wESRcgzwpHNTsw H7sLZZuV5k7HxFbGqE7IJ xwD0IoVVTlroimNb94jV9 dJoWjPdO5PDso Z1VchfO3GJJagBAjNGsmD JE8Y88hn9C1LZMzIVDiUM J8uQZ4kF4nzAmlutdkwBA mdDsgdmVydGlj EIygTCrtC686FEVhvCfkV kNvZGluZyBEYXRlOiAgMT AvMjQvMjAyMzwvdGQ+PHR cJYP4bLscHTDp hCIzSPjdJa7ksMzujPfoH E1cMGPhcwloGWBkyC0rHW DprIXxjZnhBB8rRIFfixe hp192JmUlJBF6 OFZryPKsQ3AnwV7bEwOaJ JJgMZImX2BmdMAqMFxhB2 15ZCfeNbI5JWVxefEbN6C sLWFsaWduOiB0 f1V6Hh0Sn9WmjvwkE5Mja NXwBcPgIeagEQc0E6HbMx wvdHI+EV99NGCqCD56ZSg 1BRQ4fXtrBRaz ILKwN4TvzP8nMrVcNLBpO GRkOyc+PHRhYmxlIHdpZH RoPScxMDAlJyBzdHlsZT0 cTs5mOXPgRGRp yXznuCJhLmNhq3fnZTGvC LhjOV2xfDboU9BeoNW2WY Hwl3n3Zz50M19cV8JmcHS +RIBtpMY2nEP1 jS2nAaTcYgT2PJrnK878W tKxtGNzJunjp5yka3uriJ u0BtQ7RXGytlJflJxgORY 2g1DdXa94U10e IHdpZHRoPSIxNSUiIHZhb Reydg3naD4oMc1+PGNvbC K9eNW5sX3mMfUhBlD3YDb dP855ZrTzoIUr Wqzcl0brp8yodUd9DlUgA BNhgoHklNceNPY8g3JvQg 60P5VjwVqax6ZcVyx9yj8 1aXEbe2S5gRP2 L6NlRWDafsbktVOvlIxcJ I6lEVSiqyknGRVmfN1lRF MnO4e7LpVgFnQ4POnlZ5Y jmiM2DCOijGDp IKHyfKMPmD8mpaejd3lnr srfJcIjZUAfDJy2NJs3OY InxSwfUiJiVPP6WnB3WMX 5jUZahK2lmTic miutiG4dFwq+HKO4lDLvz RIWKA4wQkgknMU+PHRkIH V3eOtvKVggSEEayX9yPZZ xH9l2ZfZiPkZ9 XDqvJ0TjcbV0DWObrEDnZ YPurEZCqW7xozndw8rpss maQeXxPKBcAIr2BZg1EOD saWduOiBsZWZ0 JsC2EVZ3yTWhrJ3prCdiy bzwkO9rAdc+QmlydGggRG L1RMj0F0PcXgw3WRRnxVc mOA1ybPHtTKza Rv6otJkieLakDA1jSBFjv bblq245ZvWnd7ftQBOiaG MrDDczQWN7T62mj7G6ZXE fPIGlOBT5dBY0 zY6taEyjzrhtlREvqEttk hVlxGkvQThhBGnqB835XF SluYuzKzMqRSi7M0MwWhd 9THHnrFczHN9t jTDtHLrkNh5yuMvyrVtmC O6pCWTlslujq153RbFvq1 rwSHUldTFwXIbvEUR8J22 yy8E0HCFoSBWp AVI1xZJ9dI6sxXwmwsosr GVmdDsgdmVydGljYWwtYW bbR233YINnjVjaStSpfIg 7O5CmVoi0RXEn dVceWD9ggZRxPLwwKt8or FmiaOydVK5gJZRxzowgp7 02JqFne1ybZEIidJNqQJi xMYS7H15mk7X9 UWAhWQMxFUY0uEQ5kL5jp GlnbjogbGVmdDsgdmVydG hbCEecPHznL739SWBpxRs nPlBhdGllbnQg AJrwPWc0M1HsHuoizOP+P O55KSIdEB11fPWgxSLxx6 fmaYu9ZvQeSJDwMUG4nCp bSDvfg2TpRCJn D96llPUmb5B5BIBmxMwld NPnWjMmsRZ7pE4zPHkrsq qej7yrfpqqLukew6hfgm0 7zF41X33xXRxj ZHRoPSIzMCUiIHZhbGlnb m5ccP2oGq8+LMDtrPQ2cT U2vX6hCLZbQbF7IZmuJ14 9InRvcCIvPjxj b9crh4wrsYu0XcZ9YIGbv pFbeSccZUM0v2EyLi82X3 9sIHdpZHRoPSIyMCUiIHZ sgFiglr4rtA9t Ii8+QVYysLA3sID3zD6cS rWzHpV3FGnyY733DuMcqW TeAgxxD80kF6XvaON+PHR aHmx4QSBloCvv EA1fwPIhAYvrAd8aDFA0V aGvHaGiJTfoO3XbAOAyss tdmkedrTK9PYEkGLZsdI7 4Af4xrXnhLBLv mZQZfD8txndes6fizuczY eNjPNVsCYi6WXj5CGRyuT ijFqXyTVA3IyA3DVF8kEY zjJ2hpXahuzbs fD8hE3CxYSXotrnfBe31j M6wHyLuKpB0VXwvUgb+SE 3ZEj1PTnjlT34AHDBsJBm vdGQ+PHRkIHN0 gKowXNbvAYXyoH0vKQUcT 3s1DdAjZzI9QMpqV4VvEL UzkcluCw21lG9pGiOiSxT 0DVmfO8CqpaX3 DDKmxALkJLdqUZT0P34cj 3Z7YCSqNSOqKXP7wRL9tH 1hbGlnbjogbGVmdDsgdmV ydGljYWwtYWxp T852VLPdnNlwCdU1EgNuM xY0ONL9E2TbQfw9UDWwaD uaNF0hoTDiBVnqUf3wdDu kiOvtEO9rJGPo zzguOQBgoY5pCCDnjMYkf QhvLC0hKDXemxagg275Iu OzKXH1AFPqrHTfA3PnfS2 yOiAjMDAwMDAw C9VypIWcWHufI894LUlhF tR7RPNndvGfT0JtWLIhfX wbJiI0h3N0Ij30OiOOCHY yczwvdGQ+PHRk VSG5sRwpAGkpREJitL1cE FWzJ9s6IoOxMeP2PKqbU9 DuCSGxvekePs63dC3cAkU oZhO4KJrrX0Fo fkQ2DFHdqOOvAEkeMJK4M 46dv9T5LYVnFEOoCUN6xA H1hV9yzRyqsujjrQUjpBq gdmVydGljYWwt SRllP854DONkzAjtXkPDO UFMRTwvdGQ+UADlUOR7vV qdYKjcDOBceG7lZQCzZ4f 2CpJnXhJ4PNva D7BnFVHjaeopWq85tO1rM uXmVbU4STxkE7JkmgK0SW PbdQKzKQplTWZ0T24gt8I 0JVGkSDBvBKA8 hYD3sJ1jqQclnefgyGTko DsgdmVydGljYWwtYWxpZ2 51COTeoEhuQl0CJT96TU7 0X8FlFzzjaZZb bGU+PHRhYmxlIHdpZHRoP WsvSXXpQaWndLrwDK1yMv 9yZGVyLWNvbGxhcHNlOiB ol0zvXJVlLZpf TT1hfYxxM9YhkCA5AQShh 0w7Au54B80vZ7AabXQ+PG XiyVL3vTZ8mE7nKkFzSsW 4ZNbhY574DkAj uXDrEsaft7fye4oukVh0R eKwWRLvyjVrxPsoFVY9j2 JgQg10I57fFDwsNGLeWQG yMCUiIHZhbGln el5wvP3iCi3+QRAttWY4s WA4rQ2pLnEzNiJ2RTauD5 74UbNpsZBnTtnxY08fG1F vdXA+PHRyPjx0 KCGqxDwtBQ5bvAIzMBjlP f7qAYK4KvVbEmKkGRwpI7 RuGCXwniocaungwDC2XRQ uZUFooE91Ko6e yGshCt6lALPaSUX0SMVvn SLmR4XqyX1lQsHqYTUqMB BlZ9JioOPrFEibZ307TDn lVrE8UHMwodMa M2ZrBPBcpDwkZrY5f3P3I k4FpDwkxFXvNZ7bVzKdBU l1A7IaIaz1ASRlaIgaUL0 toOGbRNxgDq1x wXwuwNnxGM7pEGTpswazh 378WeKxb6tfFDSvtNRwML rvFZU6C32vy3K2BKSzVUP lFWE1tCW1zJ0z bGlnbjogbGVmdDsgdmVyd QehGFouXKviO204GNHmnX tpQyJXNkj9Y0IuDtg3DJF mnLhwEC7sdWYh EOpyBp9jjCokaTcjKU8qS RCgsnlwj415SaAix5iiSF LkgBJrIAdtALM1X29bp9L 6JYNtQOMjHRG8 rTY3bV2wrQezdnkglQLic DsgdmVydGljYWwtYWxpZ2 59CGDfbKecUc1QAaj3R2V zVzn3ZIHpzZyw KR6xzRSuMZjeYu4ynBlaa CgmJR9wLFBfjekdy482Cy Hkc2wiHSIztEDeUYkxTJU 5E64by7N5CJPp TBStWLJ6kSK8bM7pfGzed jogbGVmdDsgdmVydGljYW qhFZepI722IUKhtOzbWhO heWVyOjwvdGQ+ HJ44mb91T2FeDbehSct6L LOnIWW7aQL3qH1kMOUxCD lxd9O2xYV8B5YrpfNnlo6 no0prUQWpFDlr Y29 (more content not included)... Normal [facility] .Auto Diff 1on 12-03-2022 Auto [place] % 12 % Normal -12 [facility] Comment on above: Performed By: #### 2 289186, 8004934, 0622930, 5673300, 9632053, 0263609, 76284107, 8182588535, 926194431, 1477620, 34129711 ####[facility] (DEFAULT)[address] [place] [address] Baso Abs# 0.1 x10 Normal 0.0-0.2 [facility] Comment on above: Performed By: #### 2 762907, 1530568, 9374964, 8968532, 6364871, 8628706, 94047215, 4378656202, 851789556, 6260333, 17046178 ####[facility] (DEFAULT)[address] [place] [address] Basophils/100 WBC (Bld) 1.2 % Normal 0.2-2.0 [facility] Comment on above: Performed By: #### 2 887164, 7813802, 4178601, 5586547, 8638637, 4646764, 38590837, 2115628576, 703997275, 2537099, 64696737 ####[facility] (DEFAULT)[address] [place] [address] Eos Abs# 0.1 x10 Normal 0.0-0.4 [facility] Comment on above: Performed By: #### 2 571742, 3918996, 6937452, 8514040, 1075053, 6107952, 57828517, 2823566337, 882593610, 4669620, 39885777 ####[facility] (DEFAULT)[address] [place] [address] Eosinophils/100 WBC (Bld) 2.9 % Normal 0.9-4.0 [facility] Comment on above: Performed By: #### 2 630992, 4103574, 8245333, 4246629, 7671695, 0453573, 33104122, 8694550689, 556549040, 3907963, 79020293 ####[facility] (DEFAULT)[address] [place] [address] Lymph Abs# 1.1 x10 Low 1.3-2.9 [facility] Comment on above: Performed By: #### 2 904190, 1301056, 6495827, 8017064, 0143858, 6800385, 50750999, 0417442081, 781134786, 6651447, 97365295 ####[facility] (DEFAULT)[address] [place] [address] Lymphocytes/100 WBC (Bld) 24 % Normal 14-48 [facility] Comment on above: Performed By: #### 2 828645, 6921172, 5123635, 2634975, 8434936, 3350231, 29574613, 3736563285, 759011057, 0564227, 72996260 ####[facility] (DEFAULT)[address] [place] [address] [place] Abs# 0.5 x10 Normal 0.0-0.8 [facility] Comment on above: Performed By: #### 2 955918, 6971005, 7346430, 4051433, 0419167, 8602408, 24795746, 0156039444, 905911740, 4502731, 26274961 ####[facility] (DEFAULT)[address] [place] [address] Neut Abs# 2.7 x10 Normal 1.5-9.2 [facility] Comment on above: Performed By: #### 2 584458, 4523298, 3104168, 0231792, 3745303, 9728886, 70715238, 5347472834, 381901449, 3996383, 72993751 ####[facility] (DEFAULT)[address] [place] [address] Neutrophils/100 WBC (Bld) 60 % Normal 44-88 [facility] Comment on above: Performed By: #### 2 693480, 5802181, 8182084, 6764098, 5786291, 3799211, 19539189, 9520799689, 106755998, 4250903, 87391406 ####[facility] (DEFAULT)[address] [place] [address] CBC w/ Auto Diffon 3 Erythrocyte distribution width (RBC) [Ratio] 13.4 % Normal 11.5-15.0 [facility] Comment on above: Performed By: #### 2 125570, 7464715, 2571527, 5715544, 7962056, 1657681, 73442853, 7894266238, 059208656, 5846660, 08377746 ####[facility] (DEFAULT)[address] [place] [address] Hematocrit (Bld) [Volume fraction] 40.3 % Normal 33.7-40.4 [facility] Comment on above: Performed By: #### 2 764400, 1400667, 0952859, 0626578, 0738584, 0768996, 55471290, 8188394119, 093019392, 3878166, 51257987 ####[facility] (DEFAULT)[address] [place] [address] Hemoglobin (Bld) [Mass/Vol] 13.8 g/dL Normal 11.3-15.9 [facility] Comment on above: Performed By: #### 2 255594, 4676691, 3298203, 2611950, 7062415, 6470055, 55014889, 0947979760, 321295985, 9911511, 69986402 ####[facility] (DEFAULT)[address] [place] [address] Man Diff? Auto Invalid Interpretation Code [facility] Comment on above: Performed By: #### 2 262257, 2408543, 0963829, 6383625, 2460420, 8435302, 16078448, 4694337125, 391428191, 6746833, 36245263 ####[facility] (DEFAULT)[address] [place] [address] MCH (RBC) [Entitic mass] 32 pg Normal 24-34 [facility] Comment on above: Performed By: #### 2 245667, 3237804, 8112538, 4811229, 9949352, 4325726, 98546637, 5955959421, 790293743, 5392605, 99414116 ####[facility] (DEFAULT)[address] [place] [address] MCHC (RBC) [Mass/Vol] 34 g/dL Normal 26-37 [facility] Comment on above: Performed By: #### 2 817526, 4866372, 5665100, 3553990, 4379778, 7662426, 08714659, 6526478640, 253190359, 3529190, 35617693 ####[facility] (DEFAULT)[address] [place] [address] MCV (RBC) [Entitic vol] 93 fL Normal 81-100 [facility] Comment on above: Performed By: #### 2 794100, 3891511, 6208212, 3149665, 4347080, 3807910, 85132118, 1316466509, 121212822, 9399416, 45033686 ####[facility] (DEFAULT)[address] [place] [address] Platelet 233 x10 Normal 138-427 [facility] Comment on above: Performed By: #### 2 765636, 0957031, 2251432, 4696784, 0013264, 3127895, 93014192, 9084171790, 876812318, 2325868, 27775205 ####[facility] (DEFAULT)[address] [place], [place] [address] Platelet mean volume (Bld) [Entitic vol] 7.8 fL Normal 6.3-10.2 [facility] Comment on above: Performed By: #### 2 007407, 4739627, 4701552, 0327377, 0461435, 1001953, 22627902, 8484272725, 603531198, 9697027, 62250707 ####[facility] (DEFAULT)[address] [place] [address] RBC 4.35 x10 Normal 3.70-5.30 [facility] Comment on above: Performed By: #### 2 025472, 0178292, 4670761, 6402147, 8119738, 7086392, 33834725, 2264216850, 390390841, 0338414, 33648092 ####[facility] (DEFAULT)[address] [place] [address] WBC 4.5 x10 Normal 3.5-10.5 [facility] Comment on above: Performed By: #### 2 053767, 6217469, 6736098, 0951425, 5005340, 6501416, 81001200, 3436459431, 778929207, 5466550, 19869645 ####[facility] (DEFAULT)[address] [place] [address] Standardon 12-03-2022 eGFR Non AA >60 Invalid Interpretation Code [facility] Comment on above: Performed By: #### 2 887099, 4713811, 2381381, 9761689, 6020240, 1048723, 81073405, 0649543092, 773119436, 0402559, 24865952 ####[facility] (DEFAULT)[address] [place] [address] eGFR AA >60 Invalid Interpretation Code [facility] Comment on above: Performed By: #### 2 956214, 5536633, 1977876, 0332792, 2354011, 8919950, 43477810, 3763131000, 241031639, 6523103, 13852623 ####[facility] (DEFAULT)[address] [place] [address] Albumin [Mass/Vol] 3.8 g/dL Normal 3.5-5.0 [facility] Comment on above: Performed By: #### 2 044400, 9045425, 8016787, 9071547, 1441055, 4102883, 91262534, 6907370424, 218305659, 8624835, 46209715 ####[facility] (DEFAULT)[address] [place] [address] Albumin/Globulin [Mass ratio] 1.1 {ratio} Low 1.4-2.6 [facility] Comment on above: Performed By: #### 2 920583, 4984325, 4292892, 4945588, 3557686, 6102772, 33000820, 4520767066, 693087678, 1963895, 35347039 ####[facility] (DEFAULT)[address] [place] [address] Alk Phos 97 IU/L High 32-91 [facility] Comment on above: Performed By: #### 2 974979, 4212037, 8596445, 0744169, 0113443, 0628385, 83503871, 0457276468, 157630893, 8816500, 30738360 ####[facility] (DEFAULT)[address] [place] [address] ALT [Catalytic activity/Vol] 29.0 U/L Normal 14.0-54.0 [facility] Comment on above: Performed By: #### 2 277522, 3657532, 0504920, 1281986, 9876317, 2602911, 38925249, 8879755541, 891461397, 7199596, 72319637 ####[facility] (DEFAULT)[address] [place] [address] Anion gap [Moles/Vol] 12.0 mmol/L Normal 5.0-19.0 [facility] Comment on above: Performed By: #### 2 499908, 0808246, 9355147, 1810279, 3382329, 6552699, 32508974, 1199719898, 574909069, 6011782, 08694226 ####[facility] (DEFAULT)[address] [place] [address] AST [Catalytic activity/Vol] 26 U/L Normal 15-41 [facility] Comment on above: Performed By: #### 2 747065, 2232764, 0013360, 4036759, 3139113, 2694379, 56863275, 9157780874, 957379169, 9043405, 08317232 ####[facility] (DEFAULT)[address] [place] [address] Bili Total 0.7 mg/dL Normal 0.3-1.2 [facility] Comment on above: Performed By: #### 2 523871, 5845077, 9828204, 3379251, 7915576, 8768296, 05966436, 6683093685, 098997675, 4083410, 09099000 ####[facility] (DEFAULT)[address] [place] [address]872 Calcium [Mass/Vol] 8.7 mg/dL Low 8.9-10.3 [facility] Comment on above: Performed By: #### 2 522035, 3382354, 1279516, 2324183, 5117474, 9931746, 11576955, 3417939665, 869331862, 5466460, 85729949 ####[facility] (DEFAULT)[address] [place] [address]93 Chloride [Moles/Vol] 106 mmol/L Normal 101-111 [facility] Comment on above: Performed By: #### 2 685876, 8830125, 0633802, 9298445, 9132277, 9323630, 70683065, 2149126097, 324399363, 3186941, 13722425 ####[facility] (DEFAULT)[address] [place] [address] 62574 CO2 [Moles/Vol] 25 mmol/L Normal 21-32 [facility] Comment on above: Performed By: #### 2 007405, 0676518, 9185537, 5864803, 6863945, 3567361, 35299680, 7431571559, 978694086, 5257858, 04109389 ####[facility] (DEFAULT)[address] [place] [address] Creatinine [Mass/Vol] 0.69 mg/dL Normal 0.60-1.30 [facility] Comment on above: Performed By: #### 2 129713, 5154343, 7172341, 5550905, 2076609, 6681504, 84823582, 3338838857, 020951700, 4139449, 58779778 ####[facility] (DEFAULT)[address] [place] [address] Globulin (S) [Mass/Vol] 3.2 g/dL Normal 1.5-4.3 [facility] Comment on above: Performed By: #### 2 211999, 5066957, 9165200, 5883003, 6695876, 3788842, 14906371, 0843913343, 292119465, 8394446, 75138679 ####[facility] (DEFAULT)[address] [place] [address] Glucose [Mass/Vol] 97.0 mg/dL Normal 74.0-118.0 [facility] Comment on above: Performed By: #### 2 847061, 1192941, 8069725, 9880983, 2047737, 5390321, 33599543, 7290225961, 901773848, 7330280, 58728381 ####[facility] (DEFAULT)[address] [place] [address] Osmolality 279 mOsm/L Invalid Interpretation Code [facility] Comment on above: Performed By: #### 2 071300, 4273126, 1958746, 7258358, 8997289, 6078052, 40137409, 8948166174, 905015872, 7732706, 94805976 ####[facility] (DEFAULT)[address] [place] [address]2983 Potassium [Moles/Vol] 4.0 mmol/L Normal 3.6-5.1 [facility] Comment on above: Performed By: #### 2 347375, 3160652, 6884931, 2357986, 5845768, 3073773, 43306626, 9887861481, 278224325, 1584253, 32959163 ####[facility] (DEFAULT)[address] [place] [address] Protein [Mass/Vol] 7.0 g/dL Normal 6.5-8.1 [facility] Comment on above: Performed By: #### 2 667330, 7034692, 2338963, 6044346, 0239072, 0661106, 41739906, 2337650499, 675997130, 2444684, 66966203 ####[facility] (DEFAULT)[address] [place] [address] 76141 Sodium [Moles/Vol] 139.0 mmol/L Normal 136.0-144.0 [facility] Comment on above: Performed By: #### 2 552494, 2345466, 1748847, 0366026, 3363531, 3802002, 34298688, 8314986698, 481218506, 7613209, 83586225 ####[facility] (DEFAULT)[address] [place] [address] Urea nitrogen [Mass/Vol] 18 mg/dL Normal 8-26 [facility] Comment on above: Performed By: #### 2 837094, 1980550, 8831195, 9239468, 5212145, 1333098, 22858008, 6579720003, 171663938, 3457395, 34902084 ####[facility] (DEFAULT)[address] [place] [address] 41495 Urea nitrogen/Creatinine [Mass ratio] 26.0 mg/mg High 4.6-16.2 [facility] Comment on above: Performed By: #### 2 541131, 9579372, 2731636, 1702743, 3373022, 2552692, 59116444, 9365653816, 986178423, 7995759, 75800248 ####[facility] (DEFAULT)[address] [place] [address] Ferritinon 12-03-2022 Ferritin [Mass/Vol] 48.1 ng/mL Normal 12.0-150.0 [facility] Comment on above: Performed By: #### 2 458477, 5252967, 1363805, 2027478, 7010809, 6173681, 80080588, 8849636843, 014117608, 9801960, 61063799 ####[facility] (DEFAULT)[address] [place] [address] Folateon 12-03-2022 Folic Acid Level >24.80 Normal 5.90-24.80 [facility] Comment on above: Performed By: #### 2 048924, 0482931, 8437356, 6354465, 3959581, 1908871, 93426752, 8030441457, 834383019, 8987406, 40556571 ####[facility] (DEFAULT)[address] [place] [address] Iron Profileon 12-03-2022 Iron [Mass/Vol] 45.0 ug/dL Normal 28.0-170.0 [facility] Comment on above: Performed By: #### 2 456498, 3602910, 5410221, 8946070, 9657467, 4912284, 39694555, 9294291200, 480130826, 8260491, 13613958 ####[facility] (DEFAULT)[address] [place] [address] Iron Sat 14 % Low 20-55 [facility] Comment on above: Performed By: #### 2 809090, 8262149, 4637396, 3754524, 7957345, 7347099, 85658297, 0943225039, 842242334, 7454847, 46895704 ####[facility] (DEFAULT)[address] [place] [address] TIBC 329 mcg/dL Normal 250-400 [facility] Comment on above: Performed By: #### 2 599192, 6035781, 4556599, 1010796, 2067032, 0864821, 21721331, 0137109917, 707675581, 5174184, 10262828 ####[facility] (DEFAULT)[address] [place] [address] Transferrin [Mass/Vol] 235.1 mg/dL Normal 192.0-382.0 [facility] Comment on above: Performed By: #### 2 644539, 1834510, 3028552, 2367592, 6157931, 0214274, 50729686, 6153355870, 403903711, 6126598, 27932460 ####[facility] (DEFAULT)[address] [place] [address] Magnesiumon 12-03-2022 Magnesium [Mass/Vol] 2.06 mg/dL Normal 1.80-2.50 [facility] Comment on above: Performed By: #### 2 138210, 0293533, 9848215, 3320427, 8348275, 4153296, 10946872, 4783629142, 538795686, 2928319, 24139795 ####[facility] (DEFAULT)[address] [place] [address] Phoson 12-03-2022 Phosphate [Mass/Vol] 4.4 mg/dL Normal 2.5-4.6 [facility] Comment on above: Performed By: #### 2 157853, 0649957, 8993526, 6264257, 3556895, 5808670, 90431341, 1561236766, 824249610, 0004533, 46052981 ####[facility] (DEFAULT)[address] [place] [address]497 Provider Orderson 12-03-2022 Provider Orders [id number]# 1.00OTGTIFF Normal [facility] Vit B12 Lvlon 12-03-2022 Vit B12 313 Normal 180-914 [facility] Comment on above: Performed By: #### 2 906920, 8737449, 5728724, 7857173, 5117426, 8638337, 33958213, 5689753676, 307623610, 1486871, 74611430 ####[facility] (DEFAULT)[address] [place] [address] Vit D25 OHon 12-03-2022 Vitamin D 25 OH 22 ng/mL Invalid Interpretation Code [facility] Comment on above: Performed By: #### 2 707347, 6564190, 1675415, 0506684, 7973382, 5591886, 32328356, 4519603696, 151339782, 5302678, 18870064 ####[facility] ([facility] [place] [address] Provider Orderson 11-12-2022 Provider Orders [id number]#1 .00[facility] Provider Orderson 11-06-2022 Provider Orders [id number]#[address] [place] [address] Billing Authorizationson Billing Authorizations [id number]#1. [address] [place] [address] Coding Summaryon 10-30-2022 Coding Summary [facility] JudmcyucHGl8pYb+PGhlY WQ+KA3TYEXvN36yrHTrgY 5aY5SNJDeTOqffWWMWGLv CZcNaovHhBV1jyPCaXBYu IC8+TC8tBKVgMcteuBTym 1U5sLL9N62smx5iXLokdX H5GPUsUeVaqosrt5jmxUp 6IDcuNmluOyBt VSMunS94RET8fJ08Ih32v BHrjASxr7jrpCw8SqQdBZ MuBNM1hOsxJBnnh8AiOBB jP70lkCQwv4H7 ZPUbcLgepJKwEwUzgBG3y A2hLCksxzpah8tansgeJx u0uo19kBShk5I3gID9U5K hxfE8IINipJXq ZffepDTSmQ6rlludm9ddg skdLnYaGKBkPMa9MLn9WQ FlhEsjHxVsQT54CEF0KWI wnwZaF2ZkWSRk eRmzGjK7r3Y0Ou7PB0WSN hmyN5XYYFHWTPccePQ+PC 80dm11Z3PiTwamRkj6VUZ fDPO7gWF5wJ9t DUVkBWywt5Y7rMA7O0Ros gVegg9vx3cxHEGhPKbyQ4 2bkABny5Q5ZRPukWH5HAJ rsQodPgHjlQ47 Oyc+QHUtvWbww2LbMfpiu 3wlm3xwlHm1IuxlGKXqxi TmfMmxRDF7k4YwLo3iQRT cqKK8hCF8pU3u UcCxWgP6WYefR397RtNlc REtStcmC10nS9WndLZ+PH KzXzn7ISVuvAwiOO8xL1P hZGRpbmctbGVm uGnaGW6bXESlzspwLMQet O5tMFDxH6c3GuYpRaR5HW epC3EmJELylzgzPn51xO0 yMqMmCeR8LKio Z2ZkpqX4BHVplOEgKRowO VM8F61rj6O3YILyVUOsFH P7fJV7gI7noGdwowscjJL mdDsgdmVydGlj KQxjZUymT249SDDhvPxkL kNvZGluZyBEYXRlOiAgMD kvMTkvMjAyMzwvdGQ+PHR hZUI0lQezAEVp iQLtWLkrRi8ylVmijZmzT N8gXFBfyfiuFEOxrD8kJC EovKJybDvjRS4tJFYtbrm vk405StPjZEQ8 SYUeqVPwS2PbvD3uSjRqQ NWhMDFjK1GhoVQeXIbzE8 56XOwcRlQ2GLRhfsNxG3U sLWFsaWduOiB0 w7N9Ey4Mv1NokjtzV4Wmm YIwGuSvJfuqNAr9O4DfWa wvdHI+SM07VALoFR62EOu 3DVK5zVkdOBve YBBfV3HfdN4oUpFuDKCwN GRkOyc+PHRhYmxlIHdpZH RoPScxMDAlJyBzdHlsZT0 tSw5mQICxDFPm xHgquQDaPyIpx7rpAYUqM RpgRB8swTqdK5FqfSZ7DT Qgv9h5Jw75R42vJ2MlgQF +IULegKI1zCE4 sJ1uZcSfHeF6SFvvL613M rJprKOgQedbo0yei9vqjL x0CjB7QBYfgeMmcCstDNE 3o1HxYy19R14c IHdpZHRoPSIxNSUiIHZhb Dlbkv9ivK8yXn4+PGNvbC D0gQO6hC3lSiXgWlT0MRl eX806ScImkLJj Frsvg8pcy6ogyHg3NxSuK EErxkHycVsoIOW8l0LjZa 50Q2BwpWipn5LgJbl4ak7 2zLUbx3Q2wTS5 P0GeYDYdkhgtsSHfzUxqR J2xPZCqgskiKDHvfA5tQX MgV0q9SoZhBxB8FHbqH6K mbwE5HDPcdBHg VSBdgIBNeO0xvoqsp3voo tjfBhOtRVNeNWn6XHs8JO ResNgeOwFjJCA3GrF0HLO 3lKYqbN4lrKfb sxsvxU0qIbe+SHY0qEVsc ABKNG7vTyqklCZ+PHRkIH K3tKkwMVcsAHToeW6iFMJ sC3z2JmMjBlX8 HGbvV6NkybJ3ZIMbiNWvC ZFhwXJFhO1bsqygo2sizk iwPvPqDDNqUCv8MIe8GRK saWduOiBsZWZ0 FpS0RUW9zRTtjC0wvJlib atdzL8gFqb+QmlydGggRG S5YIp7Q9FcHsr7BHHgnJv rIN1weIKyCJji Ez4yiEmepCcvEL2vTNAwk znkp486EdBds1otFZTbyE FoWEroSOE5N94fq3O0ROP qKKOrUSH7zFF5 yW3sxQzrjraqzHKzoZzep wMomDddSVjmJIgqR599IU ZicBipYvMbCBv2J7NdZaj 2CREckJiuZP3m lQZrYCmiSk9caSblmPogT E8fDHWhvilrs194BjSrf5 djSVZxiXBsNJruJCQ1M20 je8X7VPOvOJBv UIU6fRP5lD7waCemggfqt GVmdDsgdmVydGljYWwtYW ocX582HKMbiWycKiShvMi 5I1NvWvy6APUi hQoeVJ4biEErYRjcJi2gg XzrxSnxNG4eULKgqnjzd2 36EvWvo7ftEFKgcIIrZHe mZBU6X94sl5T3 MHPbYYXpCPL8tZO1mU0hb GlnbjogbGVmdDsgdmVydG mvMYpnFGjaF134GQBjsGb nPlBhdGllbnQg VCofBPl6T5ZcSquxuNC+P S26URMcXU50hEZigKWll7 iuhQg7LsOvAVWhZKH4zOj fILruv8QmXLDf C75dlIGmz9G6FZEckQiqb OLsYjQzyGQ7vP1zJUgadr vgs1lrglduShlba8ktss4 1xV17L68sNEsa ZHRoPSIzMCUiIHZhbGlnb f9lvY0qFn0+KTQsjWY7eV X6vC2wULBvOwS9YWawR30 9InRvcCIvPjxj a6goj4fifZj6TdZ3SNWgo kVolVokJTJ0j2ScZk71I9 9sIHdpZHRoPSIyMCUiIHZ uaAmddn8ftG9s Ii8+IFRwfFX8fLX1fE4sD lLcCpS8VIbsZ062UiAceC MtMamjN86lO2WquKB+PHR cNsq8KALxuWyc OS0ziIDhBMshDf9eUCP6B vUvGjTrCMvoE5MfMRBxdl bmyzrrgOD7YLGiZQBtmA1 0Bw0ieYrnVEPs rRYVvW0jbuilt3pjiupfT bTaGXPhVYr0MFb3IZIzzT etAmUuBDO5GtH8BDI9pIK qbA0bnArbovcg iV0cY3MhOSYvnchbJy72v F3bSnDkDuI9LFeaAfc+SE 2YNg0OCapcQ15LJAAkJRa vdGQ+PHRkIHN0 vYkzMXqrQBFzaO9yOVBsL 3p5OuKmRcS5DXwgQ0GxTK JybpjcIu61pT7qPeLnHlX 8EVbxU2KpgfC7 DTMweVHmZKhsBZN9W19ex 5N0ZQFjPODhMQB8qRI4wD 1hbGlnbjogbGVmdDsgdmV ydGljYWwtYWxp H617JYFbmNuuHeR3WgJuZ bB3QYA5J2TeWqs7XQYkcR juYP9pnDMmFEgsCo6guDo xySgxLY8tFXEa iwziNDPlvS4mPPYntFQkr XofJB1kJAKqeexys290Su IlRMM3QGBbuCCsZ6MmeE2 yOiAjMDAwMDAw E1RjuKGhUMniZ132MInpL iL0ULBlmvNxH1FcWMOkvR ygRqM2x7I5Mm29IoWQZJS yczwvdGQ+PHRk WGW7uPymHQqjVVTqwQ1aY HOyX8l4GjIyCmG0DNzlH5 OgOYOpjyipCs57rJ6tHuY nHjF2DOkrV5Ma hrZ3ZQXalJSjVEbwTAD7T 44yu7K0DBKkLDCwXNI3lY O2nF7csWgwfsthgHVuqFz gdmVydGljYWwt VMleV495XZIdeVbgSfAPM UFMRTwvdGQ+PDFpETK8tB yvPZeoBOGtgJ1xZJBaF5r 6FyEqQbI8OPza G2UdMNXypugySw21bL1fN hTsRiO3JKcnP9DlovW9KX AmeDXhWGwqBVZ8S37rg9S 3KSIfDQBoNIN3 xKS0pC1krTvbzzkbyRCme DsgdmVydGljYWwtYWxpZ2 99JWEkgWlxEfDmD8Qxqab uZyBPdXRwYXRp BO46RS83EE56J7UyBdnhq GFibGU+PHRhYmxlIHdpZH RoPScxMDAlJyBzdHlsZT0 lAz9bMGJdUWSg uIjqlLDsZeZbk6lnYLUiX TymJG1gtMzzI5NymCN7CS Pig7g2Hz68I40lN0EdtVP +GXYuzKA7yKH8 lL8qOnKuNpV6ACbxA683R nTtzRDtTmwap9efh7dxiZ p5QtVqMVTfjkAtgHhjRQM 1f7ZkYm74A07f IHdpZHRoPSIyMCUiIHZhb Pnjxo2jbJ1dXb7+PGNvbC K7nRX8qZ3eTpPiAlS8HLh wI802AzBysJRb SwieA86cX3WxpQB+PHRyP tv3BIDjqLzzAG0kiERfHF xcLy1vRZW7UfWmIgLrXUj gY9BnMUXevqdh kfzkaSK6OZFpYRKgfG17U u5agApqFw2pAOKkILE8SV JkvKAwY7JloH2mVfIvNOS nXHVwT9HeqMUx AAxpH205KReuSbG9VWOax hZtD3SaMARlvTtoKzB4n7 R9Xd5RhRbqbLPyHC6bKfF nAVk5X3XjUic2 PFKkvEkdHL7nzVBtPUejC f5mbAmtoQsrVR1mQXFkzb pyf578VaYdz8elCPTnnQJ oBZgqUER7O55p f4F6PWEdOGCaASP5sQD2d O0jqXkibthmhDCkaKxsee VfoSjbSAiuLVdgO843WWB vcDsnPkZJTjo8 J3ZhXlg1LHPedYkoUC7ts UJbTLqxKc0cbWqsbMsjKA 6jOVBqhweyn112ElCvj9p kIDEwcHQgVGlt GCL3B68ep5U6SFLoSHXsL ZI4tLL1xY8zaMxjfddzpL VmdDsgdmVydGljYWwtYWx nW701AIFkvWhp Fu9QQdc7V4FqCab2ZIVed DfaIT7buSFgFHbhKb9jaK kadDbrKD9mOGEnnpyzl60 8ClUdq8lfGTKr rUZqRToqMBT2Y81dc7Z2O NAeLBTvYGU8pPG5lY1mcW lnbjogbGVmdDsgdmVydGl gYRdcZEjzR717 IHRvcDsnPlBheWVyOjwvd GQ+JY23kj40Z8BsAevdYv o5OIGbTAC1oFS6mA7jFXH rOTahl0A8lDR7 J2J (more content not included)... [facility] Provider Orderson 10-26-2022 Provider Orders [id number]# 1.00OTGTIFF [facility] XR RIBS LT NO CH 2Von 2021 XR RIBS LT NO CH 2V EXAMINATION: XR RIBS LT NO CH 2V, XR CHEST 2 V HISTORY: Chest pain ; acute left mid chest and lateral rib pain; no known injury COMPARISON: XR chest 06/08/2020 FINDINGS: LUNGS: No significant pulmonary parenchymal abnormalities. PLEURA: No pneumothorax, effusion, or pleural thickening. MEDIASTINUM: No visible mass or adenopathy. CARDIAC: No cardiomegaly or cardiac silhouette abnormality. RIBS: No visible rib fracture. OTHER: Mechanical fusion of the cervical spine. Degenerative changes of the glenohumeral joints. IMPRESSION: 1. No acute cardiac pulmonary process. 2. No visible rib fracture. 3. Examination is limited by patient body habitus. Electronically authenticated by: ALEXYS SAUNDERS Date: 2021-09-12 19:47 Normal [facility] Outside Colonoscopyon 2021 Outside Colonoscopy [id number] .00CD:127 Normal [facility] Reminderson 07-20-2021 Reminders - From: Janey Turcios LPN To: N - Clinical; Sent: 07/20/2021 09:38:33 EDT Show up: 06/19/2031 07:00:00 EDT Subject: colonoscopy recall Due Date/Time: 07/20/2031 07:00:00 EDT Reminder/Recall Patient is due for screening colonoscopy 07/20/2031. Normal [facility] Consent for Procedure/Surger yon 06-20-2021 Consent for Procedure/Surgery [id number] .00CD:127 Normal [facility] Ambulatory Visit Summaryon 0 06-16-2021 Ambulatory Visit Summary RADHA BOONE :1955 Visit Date:06/16/2021 Ambulatory Visit Instructions Your Care Team Attending Physician - FRED GÓMEZ, Ivone Lynch Primary Care Physician - Lior Gilliam MD This Is Your Medications List multivitamin with iron (Iron 100 Plus oral tablet) Contact prescribing physician if questions or concerns aripiprazole (aripiprazole 5 mg Tab) aspirin (aspirin 325 mg Oral EC Tab) carvedilol (carvedilol 25 mg Tab) duloxetine (duloxetine 60 mg Cap-DR) hydrOXYzine (hydrOXYzine hydrochloride 25 mg Tab) levothyroxine (levothyroxine 150 mcg (0.15 mg) Tab) pantoprazole (Pantoprazole [address] Tab) Procedures Performed Gastric bypass (12/13/2020), section (08/28/1985), section (03/11/1979), section (02/16/1975), Excision of ganglion cyst, Excision of tumor of ankle area, deep, intramuscular, History of cervical spine surgery, TAURUS - Total abdominal hysterectomy, Tubal ligation. Discharge Vitals Heart Rate (Peripheral) 84 Respiratory Rate 16 Blood Pressure 126/84 Height 160.0 cm Height 160.02 cm Weight 121.9 kg Weight 121.9 kg BMI 47.61 Medications What How Much When Instructions Unchanged multivitamin with iron (Iron 100 Plus oral tablet) 1 Tablets By Mouth 2 times a day Unchanged aripiprazole (aripiprazole 5 mg Tab) 1 Tablets By Mouth Every day Contact prescribing physician if questions or concerns Unchanged aspirin (aspirin 325 mg Oral EC Tab) 1 Tablets By Mouth Every day Contact prescribing physician if questions or concerns Unchanged carvedilol (carvedilol 25 mg Tab) 1 Tablets By Mouth 2 times a day Contact prescribing physician if questions or concerns Unchanged duloxetine (duloxetine 60 mg Cap-DR) 1 Capsules By Mouth Every day Contact prescribing physician if questions or concerns Unchanged hydrOXYzine (hydrOXYzine hydrochloride 25 mg Tab) 1 Tablets By Mouth 4 times a day as needed for as needed for anxiety Contact prescribing physician if questions or concerns Unchanged levothyroxine (levothyroxine 150 mcg (0.15 mg) Tab) 1 Tablets By Mouth Every day Contact prescribing physician if questions or concerns Unchanged pantoprazole (Pantoprazole [address] Tab) 1 Tablets By Mouth Every day Contact prescribing physician if questions or concerns Allergies Augmentin (Anaphylactic reaction) Bee Stings (Hives) Problems Ongoing - Any problem that you are currently receiving treatment for. Anxiety and depression Back pain, chronic BMI 45.0-49.9, adult Cervical disc disease Chronic laryngitis Congestive heart failure Diabetes Dyshidrotic eczema Dysphagia GERD (gastroesophageal reflux disease) HTN (hypertension) Hypercholesterolemia Hypothyroidism Migraine headache Obesity ABDELRAHMAN (obstructive sleep apnea) Rheumatoid arthritis Normal [facility] Lab Reportson 06-15-2021 Lab Reports [id number] .00CD:127 Normal [facility] Physician Referralon 022 Physician Referral [id number] .00CD:127 Normal [facility] KNEE LEFT 4VWSon 04-27-2021 KNEE LEFT 4VWS [facility] Department of Radiology [address] [place], [place] [id number] Patient Name: RADHA BOONE : 1955 Sex: F Age: Race: White Pt. Location: 84 Patient Status: O Ordered Date: 04/27/2021 10:45:00 AM Completed Date: 04/27/2021 10:48 AM Requesting Provider: EVE RENEE Attending Provider: EVE RENEE Report Copy To: Signs & Symptoms: M25.562 Pain in left knee I10 History: Comments: Evaluate Exam: KNEE LEFT 4VWS KNEE LEFT 4VWS 04/27/2021 10:48 AM CLINICAL INDICATIONS: M25.562 Pain in left knee I10 TECHNOLOGIST COMMENTS: left knee pain for years that is getting worse no known trauma QUESTION FOR THE RADIOLOGIST: Evaluate PROTOCOL: AP,Lateral,Tunnel and Tangential views were obtained. COMPARISON: None FINDINGS: Tricompartmental joint space narrowing, sclerosis, and osteophyte formation, most pronounced at the medial compartment and patellofemoral compartment. No prior for comparison. There is no abnormal angulation of the femur with respect to the tibia. There is no fracture or dislocation identified. 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 Approved by:Rupali Johnson 1:44 PM. I, Ehsan Hicks,have reviewed the image(s) and agree with the findings in this report. Electronically signed: Ehsan Hicks. Transcribed by: [email or web address], User Resident: RUPALI KANG Electronically Signed by: EHSAN HICKS @ 04/27/2021 01:59 PM I personally read this/these film(s) with this resident Normal [facility] Comment on above: Order Comment: Evalu ate ECHOCARDIO M/2D COMPLETEon 0 10-12-2020 ECHOCARDIO M/2D COMPLETE Patient: RADHA BOONE Exam Date: 10/12/2020 : 1955 Gender:F Ordering : AIDEN JENKINS Admission #: [id number] Family : Order #: [id number] CLICK HERE TO VIEW EXAM ECHOCARDIOGRAM REPORT PROCEDURE: CARDIO PULMONARY ECHOCARDIO M/2D COMP INDICATIONS: Dyspnea on exertion COMPARISON: None. DESCRIPTION: COMPLETE ECHOCARDIOGRAM Real-time transthoracic echocardiography with 2D, M-mode, spectral and color flow Doppler performed. QUALITY: Technical quality was adequate. LEFT VENTRICLE: Normal chamber size. Mild concentric left ventricular hypertrophy. Normal left ventricular systolic function. Visual estimation of left ventricular ejection fraction is 60-65% LV EF: DIASTOLIC: Normal diastolic function. ATRIAL SEPTUM: LEFT ATRIUM: Normal chamber size. RIGHT ATRIUM: Normal chamber size. RIGHT VENTRICLE: Normal chamber size. TRICUSPID VALVE: Normal mobility and thickness. No stenosis with trivial regurgitation. No evidence of pulmonary hypertension. RVSP 33 mmHg MITRAL VALVE: Normal mobility and thickness. No mitral valve prolapse. No evidence of mitral valve stenosis. There is no mitral annular calcification. No mitral regurgitation. AORTIC VALVE: Normal trileaflet appearance. No visible sclerosis. Normal leaflet mobility. No evidence of aortic valve stenosis. No aortic regurgitation. AORTIC ROOT: Normal diameter and appearance. PULMONIC VALVE: Normal thickness and mobility. No stenosis. No regurgitation. PERICARDIUM: No evidence of pericardial effusion. IVC: Collapses with inspirations. PLEURA: CONCLUSION: 1. Normal ventricular function. 2. Mild concentric left ventricular hypertrophy. 3. No valvular dysfunction. 4. Normal right sided pressures. 5. No pericardial effusion. Adult Echocardiography Procedure Report Left Ventricle LVEDD (3.7 - 5.6 cm): 3.58 cm LVESD (2.2 - 4.0 cm): 2.33 cm LVIVS thickness (0.6 - 1.2 cm): 1.50 cm LVPW thickness (0.5 - 1.0 cm): 1.24 cm e': 11.10 cm/s E - e': 6.60 LVOT Area (cm2): 3.80 cm2 LVOT Diameter 2.20 cm Left Ventricular Ejection Fraction: 65.20 % Left Atrium Left Atrium Systolic Dimension: 2.80 cm Left Atrium Systolic Area(A4C): 18.50 cm2 Left Atrium Systolic Volume(A4C): 15829 mm3 Mitral Valve MV E to A Ratio: 0.80 Deceleration [place]: 2700 mm/s2 Mitral Valve A-Wave Peak Velocity: 92.30 cm/s Mitral Valve E-Wave Peak Velocity: 73.10 cm/s Right Ventricle RV Internal Diastolic Dimension: 3.99 cm Aorta AO Root Diam: 3.60 cm Aortic Valve AoV Area (Peak Red): 1.82 cm2 Aortic Valve Cusp Separation: 2.30 cm Peak Velocity(Antegrade Flow): 160.00 cm/s Peak Gradient(Antegrade Flow): 10 mm[Hg] Tricuspid Valve Pulmonic Valve Peak Velocity: 130.00 cm/s Peak Gradient: 7 mm[Hg] Right Atrium Dictated by: José Garcia M.D. on 10/14/2020 at 08:30 Approved by: José Garcia M.D. on 10/14/2020 at 08:32 Normal [facility] STRESS/REST MULTIon 10-06 [place] STRESS/REST MULTI Patient: RADHA BOONE Exam Date: 10/06/2020 : 1955 Gender:F Ordering : AIDEN JENKINS Admission #: [id number] Family : DR. BRIANNE LOPEZ . Order #: [id number] CLICK HERE TO VIEW EXAM RADIOLOGY REPORT PROCEDURE: RADIONUCLIDE IMAGING STRESS/REST MULTI COMPARISON: None. INDICATIONS: Dyspnea on exertion TECHNIQUE: Exam Description: Stress/Rest two day protocol gated SPECT Rest Imagin.9 mCi Tc-99m Cardiolite IV on 10/12/2020 Stress Imaging 25.4 mCi Tc-99m Cardiolite IV on 10/06/2020 Exercise Protocol: 0.4 mg Lexiscan given IV Heart Rate (bpm): Rest: 69 Max: 93 PMHR: 53 Blood Pressure: Rest: 168/108 Max: 180/108 Symptoms: Rest and peak stress ECG findings were normal and the exercise portion of the study was normal per attending physician Dr. Almanza . For more details please see separate cardiac stress test report. FINDINGS: QUALITY OF STUDY: Excellent. PERFUSION DEFECT: Mildly decreased perfusion of the apically and mid anterior wall extending into the anterior margins of the septal and lateral wall; stable twin stress and rest imaging. WALL MOTION: Normal. LV SIZE: Enlarged; EDV 131 mL. TID / TCD: None; 1.1 LVEF: Normal. Calculated EF 68%. SUMMARY: Myocardial perfusion imaging study has ABNORMAL findings. CONCLUSION: 1. No acute or reversible ischemia. 2. Overall heterogeneous radiotracer uptake with slightly decreased radiotracer activity within the anterior wall which is stable train stress and rest imaging; fixed mild ischemia from remote infarction versus attenuation artifact 3. Normal wall motion and ejection fraction. Dictated by: Alexys Saunders M.D. on 10/12/2020 at 15:07 Approved by: Alexys Saunders M.D. on 10/12/2020 at 15:11 Normal [facility] Glucose Poct Glucometerson 0 05-18-2020 Glucose [Mass/Vol] 328 mg/dL Normal [facility] Comment on above: Result Comment: [facility] Glucose Reference Range is dependent on time and content of last meal. Glucose of more than 200 mg/dL in a nonstressed, ambulatory subject supports the diagnosis of Diabetes Mellitus. PERFORMED BY: [place] [address] PATHOLOGIST MAINTENA[employer]CE [employer] THIERRY CARDOZO M.D. Performed By: #### D DIMER #### [address] Glucose [Mass/Vol] 172 mg/dL Normal [facility] Comment on above: Result Comment: [facility] Glucose Reference Range is dependent on time and content of last meal. Glucose of more than 200 mg/dL in a nonstressed, ambulatory subject supports the diagnosis of Diabetes Mellitus. PERFORMED BY: [place] [address] PATHOLOGIST MA[employer]TENA[employer] THIERRY CARDOZO M.D. Performed By: #### D DIMER #### [place] [id number] [facility] Glucose [Mass/Vol] 164 mg/dL Normal [facility] Comment on above: Result Comment: [place] [facility] Glucose Reference Range is dependent on time and content of last meal. Glucose of more than 200 mg/dL in a nonstressed, ambulatory subject supports the diagnosis of Diabetes Mellitus. PERFORMED BY: [place] [address] PATHOLOGIST MA[employer]TENA[employer] THIERRY CARDOZO M.D. Performed By: #### D DIMER #### [address] Commemt1 Glu2: Cleaned Meter Normal [facility] Comment on above: Result Comment: PERF ORMED BY: [place] [address] PATHOLOGIST MA[employer]TENA[employer] THIERRY CARDOZO M.D. Performed By: #### D DIMER #### [address] Glucose [Mass/Vol] 103 mg/dL Normal [facility] Comment on above: Result Comment: [facility] Glucose Reference Range is dependent on time and content of last meal. Glucose of more than 200 mg/dL in a nonstressed, ambulatory subject supports the diagnosis of Diabetes Mellitus. Performed By: #### D DIMER #### [address] Complete Blood Count Auto Di ffon 05-17-2020 Basophils (Bld) [#/Vol] 0.0 10*3/uL Normal 0.0-0.2 [facility] Comment on above: Result Comment: PERF ORMED BY: [place] [address] PATHOLOGIST [employer]TE[employer] THIERRY CARDOZO M.D. Performed By: #### D DIMER #### [place] [address] [place] Basophils/100 WBC (Bld) 0.1 % Normal . [facility] Comment on above: Performed By: #### D DIMER #### [place] [address] [place] Eosinophils (Bld) [#/Vol] 0.0 10*3/uL Normal 0.0-0.45 [facility] Comment on above: Performed By: #### D DIMER #### [address] Eosinophils/100 WBC (Bld) 0.2 % Normal . [facility] Comment on above: Performed By: #### D DIMER #### [address] Erythrocyte distribution width (RBC) [Ratio] 13.9 % Normal 11.9-15.3 [facility] Comment on above: Performed By: #### D DIMER #### [address] Hematocrit (Bld) [Volume fraction] 39.8 % Normal 34.0-46.4 [facility] Comment on above: Performed By: #### D DIMER #### [address] Hemoglobin (Bld) [Mass/Vol] 13.1 g/dL Normal 11.8-15.4 [facility] Comment on above: Performed By: #### D DIMER #### [address] Lymphocytes (Bld) [#/Vol] 1.4 10*3/uL Normal 1.00-4.8 [facility] Comment on above: Performed By: #### D DIMER #### [address] Lymphocytes/100 WBC (Bld) 12.4 % Normal . [facility] Comment on above: Performed By: #### D DIMER #### [address] MCH (RBC) [Entitic mass] 30.4 pg Normal 24.7-34.3 [facility] Comment on above: Performed By: #### D DIMER #### [address] MCV (RBC) [Entitic vol] 92.3 fL Normal 80-100 [facility] Comment on above: Performed By: #### D DIMER #### [facility] [address] Mean Corpuscular HGB Conc 32.9 g/dL Normal 32.0-35.0 [facility] Comment on above: Performed By: #### D DIMER #### [facility] [address] [place] [address] Monocytes (Bld) [#/Vol] 1.3 10*3/uL High 0.0-0.8 [facility] Comment on above: Performed By: #### D DIMER #### [address] Monocytes/100 WBC (Bld) 11.5 % Normal . [facility] Comment on above: Performed By: #### D DIMER #### [address] Neutrophils (Bld) [#/Vol] 8.4 10*3/uL High 1.8-7.7 [facility] Comment on above: Performed By: #### D DIMER #### [address] Neutrophils/100 WBC (Bld) 75.8 % Normal . [facility] Comment on above: Performed By: #### D DIMER #### [place] [address] [place] Nucleated RBC/100 WBC (Bld) [Ratio] 0.2 % Normal 0-0.5 [facility] Comment on above: Performed By: #### D DIMER #### [address] Platelet mean volume (Bld) [Entitic vol] 7.9 fL Normal 6.3-10.7 [facility] Comment on above: Performed By: #### D DIMER #### [place] [address] [place] Platelets (Bld) [#/Vol] 341 10*3/uL Normal 150-450 [facility] Comment on above: Performed By: #### D DIMER #### [address] RBC (Bld) [#/Vol] 4.31 10*6/uL Normal 3.60-5.00 [facility] Comment on above: Performed By: #### D DIMER #### [address] WBC (Bld) [#/Vol] 11.1 10*3/uL High 4.5-11.0 [facility] Comment on above: Performed By: #### D DIMER #### [address] Comprehensive Metabolic Pane brandee 05-17-2020 Albumin [Mass/Vol] 3.0 g/dL Low 3.2-5.5 [facility] Comment on above: Performed By: #### D DIMER #### [address] Albumin/Globulin [Mass ratio] 1.0 {ratio} Normal [facility] Comment on above: Performed By: #### D DIMER #### [address] ALP [Catalytic activity/Vol] 56 U/L Normal 32-92 [facility] Comment on above: Performed By: #### D DIMER #### [address] ALT [Catalytic activity/Vol] 38 U/L Normal 10-60 [facility] Comment on above: Performed By: #### D DIMER #### [address] AST [Catalytic activity/Vol] 21 U/L Normal 10-42 [facility] Comment on above: Performed By: #### D DIMER #### [address] Bilirubin [Mass/Vol] 1.0 mg/dL Normal 0.3-1.2 [facility] Comment on above: Performed By: #### D DIMER #### [address] Calcium [Mass/Vol] 8.7 mg/dL Normal 8.2-10.2 [facility] Comment on above: Performed By: #### D DIMER #### [facility] [address] [place] [address] Chloride [Moles/Vol] 91 mmol/L Low 95-114 [facility] Comment on above: Performed By: #### D DIMER #### [address] CO2 [Moles/Vol] 36.6 mmol/L High 22.0-30.0 [facility] Comment on above: Performed By: #### D DIMER #### [address] Creatinine [Mass/Vol] 0.70 mg/dL Normal 0.44-1.03 [facility] Comment on above: Performed By: #### D DIMER #### [address] Creatinine Clr Calc Pharmacy 108.77 [facility] Comment on above: Result Comment: PERF ORMED BY: [place] [address] PATHOLOGIST MA[employer]TENA[employer]IERRY CARDOZO M.D. Performed By: #### D DIMER #### [address] Estimated GFR ( Jasmin > 60 [facility] Comment on above: Result Comment: GFR estimated reference range: According to KDOQI guidelines, <60 ml/min/1.73m2 is sufficient to diagnose a patient with chronic kidney disease. Performed By: #### D DIMER #### [address] Estimated GFR (Non- Am > 60 [facility] Comment on above: Performed By: #### D DIMER #### [address] Globulin (S) [Mass/Vol] 2.9 g/dL [facility] Comment on above: Performed By: #### D DIMER #### [address] Glucose [Mass/Vol] 127 mg/dL High 70-100 [facility] Comment on above: Result Comment: [place] [facility] Glucose Reference Range is dependent on time and content of last meal. Glucose of more than 200 mg/dL in a nonstressed, ambulatory subject supports the diagnosis of Diabetes Mellitus. ADA recommended reference range Performed By: #### D DIMER #### [facility] [address] Potassium [Moles/Vol] 3.5 mmol/L Normal 3.5-5.1 [facility] Comment on above: Performed By: #### D DIMER #### [facility] [address] Protein [Mass/Vol] 5.9 g/dL Low 6.1-7.9 [facility] Comment on above: Performed By: #### D DIMER #### [facility] [address] Sodium [Moles/Vol] 138 mmol/L Normal 136-146 [facility] Comment on above: Performed By: #### D DIMER #### [facility] [address] Urea nitrogen [Mass/Vol] 21 mg/dL Normal 9-23 [facility] Comment on above: Performed By: #### D DIMER #### [address] Glucose Poct Glucometerson 0 05-17-2020 Commemt1 Glu2: Cleaned Meter Normal [facility] Comment on above: Result Comment: PERF ORMED BY: [facility] [address] [place] [address] PATHOLOGIST MA[employer]TENA[employer] THIERRY CARDOZO M.D. Performed By: #### D DIMER #### [facility] [address] [place] [address] Glucose [Mass/Vol] 246 mg/dL Normal [facility] Comment on above: Result Comment: [place] [facility] Glucose Reference Range is dependent on time and content of last meal. Glucose of more than 200 mg/dL in a nonstressed, ambulatory subject supports the diagnosis of Diabetes Mellitus. Performed By: #### D DIMER #### [address] Commemt1 Glu2: Cleaned Meter Normal [facility] Comment on above: Result Comment: PERF ORMED BY: [place] [address] PATHOLOGIST MAINTENA[employer]CE [employer] THIERRY CARDOZO M.D. Performed By: #### D DIMER #### [address] Glucose [Mass/Vol] 135 mg/dL Normal [facility] Comment on above: Result Comment: [facility] Glucose Reference Range is dependent on time and content of last meal. Glucose of more than 200 mg/dL in a nonstressed, ambulatory subject supports the diagnosis of Diabetes Mellitus. Performed By: #### D DIMER #### [address] Basic Metabolic Panelon 04-0 Calcium [Mass/Vol] 8.6 mg/dL Normal 8.2-10.2 [facility] Comment on above: Performed By: #### D DIMER #### [address] Chloride [Moles/Vol] 90 mmol/L Low 95-114 [facility] Comment on above: Performed By: #### D DIMER #### [address] CO2 [Moles/Vol] 34.3 mmol/L High 22.0-30.0 [facility] Comment on above: Performed By: #### D DIMER #### [address] Creatinine [Mass/Vol] 0.68 mg/dL Normal 0.44-1.03 [facility] Comment on above: Performed By: #### D DIMER #### [address] Creatinine Clr Calc Pharmacy 114.92 Normal [facility] Comment on above: Result Comment: PERF ORMED BY: [place] [address] PATHOLOGIST MAINTENA[employer]CE [employer] THIERRY CARDOZO M.D. Performed By: #### D DIMER #### [address] Estimated GFR ( Jasmin > 60 Normal [facility] Comment on above: Result Comment: GFR estimated reference range: According to KDOQI guidelines, <60 ml/min/1.73m2 is sufficient to diagnose a patient with chronic kidney disease. Performed By: #### D DIMER #### [address] Estimated GFR (Non- Am > 60 Normal [facility] Comment on above: Performed By: #### D DIMER #### [address] Glucose [Mass/Vol] 156 mg/dL High 70-100 [facility] Comment on above: Result Comment: [place] [facility] Glucose Reference Range is dependent on time and content of last meal. Glucose of more than 200 mg/dL in a nonstressed, ambulatory subject supports the diagnosis of Diabetes Mellitus. ADA recommended reference range Performed By: #### D DIMER #### [address] Potassium [Moles/Vol] 4.0 mmol/L Normal 3.5-5.1 [facility] Comment on above: Performed By: #### D DIMER #### [address] Sodium [Moles/Vol] 135 mmol/L Low 136-146 [facility] Comment on above: Performed By: #### D DIMER #### [address] Urea nitrogen [Mass/Vol] 23 mg/dL Normal 9-23 [facility] Comment on above: Performed By: #### D DIMER #### [address] Complete Blood Count Auto Di ffon 05-16-2020 Basophils (Bld) [#/Vol] 0.0 10*3/uL Normal 0.0-0.2 [facility] Comment on above: Result Comment: PERF ORMED BY: [place] [address] PATHOLOGIST MA[employer]TE[employer] THIERRY CARDOZO M.D. Performed By: #### D DIMER #### [address] Basophils/100 WBC (Bld) 0.1 % Normal . [facility] Comment on above: Performed By: #### D DIMER #### [address] Eosinophils (Bld) [#/Vol] 0.1 10*3/uL Normal 0.0-0.45 [facility] Comment on above: Performed By: #### D DIMER #### [address] Eosinophils/100 WBC (Bld) 0.5 % Normal . [facility] Comment on above: Performed By: #### D DIMER #### [address] Erythrocyte distribution width (RBC) [Ratio] 13.9 % Normal 11.9-15.3 [facility] Comment on above: Performed By: #### D DIMER #### [address] Hematocrit (Bld) [Volume fraction] 39.5 % Normal 34.0-46.4 [facility] Comment on above: Performed By: #### D DIMER #### [address] Hemoglobin (Bld) [Mass/Vol] 13.3 g/dL Normal 11.8-15.4 [facility] Comment on above: Performed By: #### D DIMER #### [address] Lymphocytes (Bld) [#/Vol] 1.2 10*3/uL Normal 1.00-4.8 [facility] Comment on above: Performed By: #### D DIMER #### [place] [address] [place] Lymphocytes/100 WBC (Bld) 9.6 % Normal . [facility] Comment on above: Performed By: #### D DIMER #### [address] MCH (RBC) [Entitic mass] 30.7 pg Normal 24.7-34.3 [facility] Comment on above: Performed By: #### D DIMER #### [address] MCV (RBC) [Entitic vol] 91.3 fL Normal 80-100 [facility] Comment on above: Performed By: #### D DIMER #### [address] Mean Corpuscular HGB Conc 33.6 g/dL Normal 32.0-35.0 [facility] Comment on above: Performed By: #### D DIMER #### [address] Monocytes (Bld) [#/Vol] 1.4 10*3/uL High 0.0-0.8 [facility] Comment on above: Performed By: #### D DIMER #### [address] Monocytes/100 WBC (Bld) 11.5 % Normal . [facility] Comment on above: Performed By: #### D DIMER #### [address] Neutrophils (Bld) [#/Vol] 9.6 10*3/uL High 1.8-7.7 [facility] Comment on above: Performed By: #### D DIMER #### [address] Neutrophils/100 WBC (Bld) 78.3 % Normal . [facility] Comment on above: Performed By: #### D DIMER #### [address] Nucleated RBC/100 WBC (Bld) [Ratio] 0.0 % Normal 0-0.5 [facility] Comment on above: Performed By: #### D DIMER #### [facility] [address] Platelet mean volume (Bld) [Entitic vol] 8.0 fL Normal 6.3-10.7 [facility] Comment on above: Performed By: #### D DIMER #### [facility] [address] Platelets (Bld) [#/Vol] 340 10*3/uL Normal 150-450 [facility] Comment on above: Performed By: #### D DIMER #### [facility] [address] RBC (Bld) [#/Vol] 4.33 10*6/uL Normal 3.60-5.00 [facility] Comment on above: Performed By: #### D DIMER #### [address] WBC (Bld) [#/Vol] 12.2 10*3/uL High 4.5-11.0 [facility] Comment on above: Performed By: #### D DIMER #### [address] Glucose Poct Glucometerson 0 05-16-2020 Glucose [Mass/Vol] 184 mg/dL Normal [facility] Comment on above: Result Comment: [facility] Glucose Reference Range is dependent on time and content of last meal. Glucose of more than 200 mg/dL in a nonstressed, ambulatory subject supports the diagnosis of Diabetes Mellitus. PERFORMED BY: [place] [address] PATHOLOGIST MA[employer]TENA[employer]CE [employer]IERRY CARDOZO M.D. Performed By: #### D DIMER #### [address] Glucose [Mass/Vol] 260 mg/dL Normal [facility] Comment on above: Result Comment: [facility] Glucose Reference Range is dependent on time and content of last meal. Glucose of more than 200 mg/dL in a nonstressed, ambulatory subject supports the diagnosis of Diabetes Mellitus. PERFORMED BY: [place] [address] PATHOLOGIST MAINTE[employer] THIERRY CARDOZO M.D. Performed By: #### D DIMER #### [address] Glucose [Mass/Vol] 178 mg/dL Normal [facility] Comment on above: Result Comment: [place] Glucose Reference Range is dependent on time and content of last meal. Glucose of more than 200 mg/dL in a nonstressed, ambulatory subject supports the diagnosis of Diabetes Mellitus. PERFORMED BY: [place] [address] PATHOLOGIST MAINTENA[employer]CE [employer] THIERRY CARDOZO M.D. Performed By: #### D DIMER #### [address] Glucose [Mass/Vol] 124 mg/dL Normal [facility] Comment on above: Result Comment: [place] Glucose Reference Range is dependent on time and content of last meal. Glucose of more than 200 mg/dL in a nonstressed, ambulatory subject supports the diagnosis of Diabetes Mellitus. PERFORMED BY: [place] [address] PATHOLOGIST MAINTENA[employer] THIERRY CARDOZO M.D. Performed By: #### D DIMER #### [address] Basic Metabolic Panelon 04-0 Calcium [Mass/Vol] 9.0 mg/dL Normal 8.2-10.2 [facility] Comment on above: Performed By: #### D IFF CBC, TROP, CMP, T4F, PTT, CRP, T4T, PT, TSH3 #### [place] [address] [place] Chloride [Moles/Vol] 89 mmol/L Low 95-114 [facility] Comment on above: Performed By: #### D IFF CBC, TROP, CMP, T4F, PTT, CRP, T4T, PT, TSH3 #### [place] [address] [place] CO2 [Moles/Vol] 36.1 mmol/L High 22.0-30.0 [facility] Comment on above: Performed By: #### D IFF CBC, TROP, CMP, T4F, PTT, CRP, T4T, PT, TSH3 #### [facility] [address] Creatinine [Mass/Vol] 0.60 mg/dL Normal 0.44-1.03 [facility] Comment on above: Performed By: #### D IFF CBC, TROP, CMP, T4F, PTT, CRP, T4T, PT, TSH3 #### [facility] [address] Creatinine Clr Calc Pharmacy 130.25 [facility] Comment on above: Result Comment: PERF ORMED BY: [place] [address] PATHOLOGIST MAINTE[employer]CE [employer] THIERRY CARDOZO M.D. Performed By: #### D IFF CBC, TROP, CMP, T4F, PTT, CRP, T4T, PT, TSH3 #### [facility] [address] Estimated GFR ( Jasmin > 60 [facility] Comment on above: Result Comment: GFR estimated reference range: According to KDOQI guidelines, <60 ml/min/1.73m2 is sufficient to diagnose a patient with chronic kidney disease. Performed By: #### D IFF CBC, TROP, CMP, T4F, PTT, CRP, T4T, PT, TSH3 #### [facility] [address] Estimated GFR (Non- Am > 60 [facility] Comment on above: Performed By: #### D IFF CBC, TROP, CMP, T4F, PTT, CRP, T4T, PT, TSH3 #### [facility] [address] Glucose [Mass/Vol] 129 mg/dL High 70-100 [facility] Comment on above: Result Comment: [place] Glucose Reference Range is dependent on time and content of last meal. Glucose of more than 200 mg/dL in a nonstressed, ambulatory subject supports the diagnosis of Diabetes Mellitus. ADA recommended reference range Performed By: #### D IFF CBC, TROP, CMP, T4F, PTT, CRP, T4T, PT, TSH3 #### [address] Potassium [Moles/Vol] 4.6 mmol/L Significant change down 3.5-5.1 [facility] Comment on above: Performed By: #### D IFF CBC, TROP, CMP, T4F, PTT, CRP, T4T, PT, TSH3 #### [address] Sodium [Moles/Vol] 135 mmol/L Low 136-146 [facility] Comment on above: Performed By: #### D IFF CBC, TROP, CMP, T4F, PTT, CRP, T4T, PT, TSH3 #### [address] Urea nitrogen [Mass/Vol] 27 mg/dL High 9-23 [facility] Comment on above: Performed By: #### D IFF CBC, TROP, CMP, T4F, PTT, CRP, T4T, PT, TSH3 #### [address] Complete Blood Count Auto Di ffon 05-15-2020 Basophils (Bld) [#/Vol] 0.1 10*3/uL Normal 0.0-0.2 [facility] Comment on above: Result Comment: PERF ORMED BY: [place] [address] PATHOLOGIST [employer]Y CARDOZO M.D. Performed By: #### D IFF CBC, TROP, CMP, T4F, PTT, CRP, T4T, PT, TSH3 #### [address] Basophils/100 WBC (Bld) 0.5 % Normal . [facility] Comment on above: Performed By: #### D IFF CBC, TROP, CMP, T4F, PTT, CRP, T4T, PT, TSH3 #### [facility] [address] Eosinophils (Bld) [#/Vol] 0.1 10*3/uL Normal 0.0-0.45 [facility] Comment on above: Performed By: #### D IFF CBC, TROP, CMP, T4F, PTT, CRP, T4T, PT, TSH3 #### [address] Eosinophils/100 WBC (Bld) 0.6 % Normal . [facility] Comment on above: Performed By: #### D IFF CBC, TROP, CMP, T4F, PTT, CRP, T4T, PT, TSH3 #### [address] Erythrocyte distribution width (RBC) [Ratio] 13.9 % Normal 11.9-15.3 [facility] Comment on above: Performed By: #### D IFF CBC, TROP, CMP, T4F, PTT, CRP, T4T, PT, TSH3 #### [address] Hematocrit (Bld) [Volume fraction] 40.5 % Normal 34.0-46.4 [facility] Comment on above: Performed By: #### D IFF CBC, TROP, CMP, T4F, PTT, CRP, T4T, PT, TSH3 #### [address] Hemoglobin (Bld) [Mass/Vol] 13.6 g/dL Normal 11.8-15.4 [facility] Comment on above: Performed By: #### D IFF CBC, TROP, CMP, T4F, PTT, CRP, T4T, PT, TSH3 #### [address] Lymphocytes (Bld) [#/Vol] 1.3 10*3/uL Normal 1.00-4.8 [facility] Comment on above: Performed By: #### D IFF CBC, TROP, CMP, T4F, PTT, CRP, T4T, PT, TSH3 #### [facility] [address] Lymphocytes/100 WBC (Bld) 9.8 % Normal . [facility] Comment on above: Performed By: #### D IFF CBC, TROP, CMP, T4F, PTT, CRP, T4T, PT, TSH3 #### [facility] [address] MCH (RBC) [Entitic mass] 30.7 pg Normal 24.7-34.3 [facility] Comment on above: Performed By: #### D IFF CBC, TROP, CMP, T4F, PTT, CRP, T4T, PT, TSH3 #### [facility] [address] MCV (RBC) [Entitic vol] 91.6 fL Normal 80-100 [facility] Comment on above: Performed By: #### D IFF CBC, TROP, CMP, T4F, PTT, CRP, T4T, PT, TSH3 #### [facility] [address] Mean Corpuscular HGB Conc 33.5 g/dL Normal 32.0-35.0 [facility] Comment on above: Performed By: #### D IFF CBC, TROP, CMP, T4F, PTT, CRP, T4T, PT, TSH3 #### [address] Monocytes (Bld) [#/Vol] 1.4 10*3/uL High 0.0-0.8 [facility] Comment on above: Performed By: #### D IFF CBC, TROP, CMP, T4F, PTT, CRP, T4T, PT, TSH3 #### [facility] [address] Monocytes/100 WBC (Bld) 10.4 % Normal . [facility] Comment on above: Performed By: #### D IFF CBC, TROP, CMP, T4F, PTT, CRP, T4T, PT, TSH3 #### [address] Neutrophils (Bld) [#/Vol] 10.5 10*3/uL High 1.8-7.7 [facility] Comment on above: Performed By: #### D IFF CBC, TROP, CMP, T4F, PTT, CRP, T4T, PT, TSH3 #### [facility] [address] Neutrophils/100 WBC (Bld) 78.7 % Normal . [facility] Comment on above: Performed By: #### D IFF CBC, TROP, CMP, T4F, PTT, CRP, T4T, PT, TSH3 #### [facility] [address] Nucleated RBC/100 WBC (Bld) [Ratio] 0.2 % Normal 0-0.5 [facility] Comment on above: Performed By: #### D IFF CBC, TROP, CMP, T4F, PTT, CRP, T4T, PT, TSH3 #### [facility] [address] [place] [address] [place] Platelet mean volume (Bld) [Entitic vol] 8.2 fL Normal 6.3-10.7 [facility] Comment on above: Performed By: #### D IFF CBC, TROP, CMP, T4F, PTT, CRP, T4T, PT, TSH3 #### [facility] [address] [place] [address] [place] Platelets (Bld) [#/Vol] 342 10*3/uL Normal 150-450 [facility] Comment on above: Performed By: #### D IFF CBC, TROP, CMP, T4F, PTT, CRP, T4T, PT, TSH3 #### [facility] [address] [place] [address] [place] RBC (Bld) [#/Vol] 4.42 10*6/uL Normal 3.60-5.00 [facility] Comment on above: Performed By: #### D IFF CBC, TROP, CMP, T4F, PTT, CRP, T4T, PT, TSH3 #### [facility] [address] [place] [address] [place] WBC (Bld) [#/Vol] 13.4 10*3/uL High 4.5-11.0 [facility] Comment on above: Performed By: #### D IFF CBC, TROP, CMP, T4F, PTT, CRP, T4T, PT, TSH3 #### [facility] [address] [place], [place] [id number] [facility] Glucose Poct Glucometerson 0 05-15-2020 Commemt1 Glu2: Cleaned Meter [facility] Comment on above: Result Comment: PERF ORMED BY: [place] [address] PATHOLOGIST [employer] CARDOZO M.D. Performed By: #### D IFF CBC, TROP, CMP, T4F, PTT, CRP, T4T, PT, TSH3 #### [place] [id number] [place] Glucose [Mass/Vol] 199 mg/dL Normal [facility] Comment on above: Result Comment: [place] om Glucose Reference Range is dependent on time and content of last meal. Glucose of more than 200 mg/dL in a nonstressed, ambulatory subject supports the diagnosis of Diabetes Mellitus. Performed By: #### D IFF CBC, TROP, CMP, T4F, PTT, CRP, T4T, PT, TSH3 #### [address] [address] [facility] Commemt1 Glu2: Cleaned Meter [facility] Comment on above: Result Comment: PERF ORMED BY: [place] [address] PATHOLOGIST [employer] CARDOZO M.D. Performed By: #### D IFF CBC, TROP, CMP, T4F, PTT, CRP, T4T, PT, TSH3 #### [facility] [address] [place], [place] [id number] [place] Glucose [Mass/Vol] 300 mg/dL Normal [facility] Comment on above: Result Comment: [place] om Glucose Reference Range is dependent on time and content of last meal. Glucose of more than 200 mg/dL in a nonstressed, ambulatory subject supports the diagnosis of Diabetes Mellitus. Performed By: #### D IFF CBC, TROP, CMP, T4F, PTT, CRP, T4T, PT, TSH3 #### [address] Commemt1 Glu2: Cleaned Meter [facility] Comment on above: Result Comment: PERF ORMED BY: [place] [address] PATHOLOGIST [employer] CARDOZO M.D. Performed By: #### D IFF CBC, TROP, CMP, T4F, PTT, CRP, T4T, PT, TSH3 #### [address] Glucose [Mass/Vol] 306 mg/dL Normal [facility] Comment on above: Result Comment: [place] om Glucose Reference Range is dependent on time and content of last meal. Glucose of more than 200 mg/dL in a nonstressed, ambulatory subject supports the diagnosis of Diabetes Mellitus. Performed By: #### D IFF CBC, TROP, CMP, T4F, PTT, CRP, T4T, PT, TSH3 #### [address] Commemt1 Glu2: Cleaned Meter [facility] Comment on above: Result Comment: PERF ORMED BY: [place] [address] PATHOLOGIST [employer]Y CARDOZO M.D. Performed By: #### D IFF CBC, TROP, CMP, T4F, PTT, CRP, T4T, PT, TSH3 #### [address] Glucose [Mass/Vol] 156 mg/dL Normal [facility] Comment on above: Result Comment: [place] om Glucose Reference Range is dependent on time and content of last meal. Glucose of more than 200 mg/dL in a nonstressed, ambulatory subject supports the diagnosis of Diabetes Mellitus. Performed By: #### D IFF CBC, TROP, CMP, T4F, PTT, CRP, T4T, PT, TSH3 #### [address] Complete Blood Count Auto Di ffon 05-14-2020 Basophils (Bld) [#/Vol] 0.0 10*3/uL Normal 0.0-0.2 [facility] Comment on above: Result Comment: PERF ORMED BY: [place] [address] PATHOLOGIST [employer] CARDOZO M.D. Performed By: #### D IFF CBC, TROP, CMP, T4F, PTT, CRP, T4T, PT, TSH3 #### [address] Basophils/100 WBC (Bld) 0.1 % Normal . [facility] Comment on above: Performed By: #### D IFF CBC, TROP, CMP, T4F, PTT, CRP, T4T, PT, TSH3 #### [address] Eosinophils (Bld) [#/Vol] 0.0 10*3/uL Normal 0.0-0.45 [facility] Comment on above: Performed By: #### D IFF CBC, TROP, CMP, T4F, PTT, CRP, T4T, PT, TSH3 #### [address] Eosinophils/100 WBC (Bld) 0.3 % Normal . [facility] Comment on above: Performed By: #### D IFF CBC, TROP, CMP, T4F, PTT, CRP, T4T, PT, TSH3 #### [address] Erythrocyte distribution width (RBC) [Ratio] 13.9 % Normal 11.9-15.3 [facility] Comment on above: Performed By: #### D IFF CBC, TROP, CMP, T4F, PTT, CRP, T4T, PT, TSH3 #### [address] Hematocrit (Bld) [Volume fraction] 38.6 % Normal 34.0-46.4 [facility] Comment on above: Performed By: #### D IFF CBC, TROP, CMP, T4F, PTT, CRP, T4T, PT, TSH3 #### [address] Hemoglobin (Bld) [Mass/Vol] 13.0 g/dL Normal 11.8-15.4 [facility] Comment on above: Performed By: #### D IFF CBC, TROP, CMP, T4F, PTT, CRP, T4T, PT, TSH3 #### [address] Lymphocytes (Bld) [#/Vol] 1.5 10*3/uL Normal 1.00-4.8 [facility] Comment on above: Performed By: #### D IFF CBC, TROP, CMP, T4F, PTT, CRP, T4T, PT, TSH3 #### [address] Lymphocytes/100 WBC (Bld) 9.3 % Normal . [facility] Comment on above: Performed By: #### D IFF CBC, TROP, CMP, T4F, PTT, CRP, T4T, PT, TSH3 #### [address] MCH (RBC) [Entitic mass] 30.8 pg Normal 24.7-34.3 [facility] Comment on above: Performed By: #### D IFF CBC, TROP, CMP, T4F, PTT, CRP, T4T, PT, TSH3 #### [address] MCV (RBC) [Entitic vol] 91.4 fL Normal 80-100 [facility] Comment on above: Performed By: #### D IFF CBC, TROP, CMP, T4F, PTT, CRP, T4T, PT, TSH3 #### [address] Mean Corpuscular HGB Conc 33.7 g/dL Normal 32.0-35.0 [facility] Comment on above: Performed By: #### D IFF CBC, TROP, CMP, T4F, PTT, CRP, T4T, PT, TSH3 #### [facility] [address] Monocytes (Bld) [#/Vol] 1.5 10*3/uL High 0.0-0.8 [facility] Comment on above: Performed By: #### D IFF CBC, TROP, CMP, T4F, PTT, CRP, T4T, PT, TSH3 #### [facility] [address] Monocytes/100 WBC (Bld) 9.7 % Normal . [facility] Comment on above: Performed By: #### D IFF CBC, TROP, CMP, T4F, PTT, CRP, T4T, PT, TSH3 #### [address] Neutrophils (Bld) [#/Vol] 12.8 10*3/uL High 1.8-7.7 [facility] Comment on above: Performed By: #### D IFF CBC, TROP, CMP, T4F, PTT, CRP, T4T, PT, TSH3 #### [address] Neutrophils/100 WBC (Bld) 80.6 % Normal . [facility] Comment on above: Performed By: #### D IFF CBC, TROP, CMP, T4F, PTT, CRP, T4T, PT, TSH3 #### [address] Nucleated RBC/100 WBC (Bld) [Ratio] 0.2 % Normal 0-0.5 [facility] Comment on above: Performed By: #### D IFF CBC, TROP, CMP, T4F, PTT, CRP, T4T, PT, TSH3 #### [place] [address] [place] Platelet mean volume (Bld) [Entitic vol] 8.2 fL Normal 6.3-10.7 [facility] Comment on above: Performed By: #### D IFF CBC, TROP, CMP, T4F, PTT, CRP, T4T, PT, TSH3 #### [address] [place] [address] [place] Platelets (Bld) [#/Vol] 315 10*3/uL Normal 150-450 [facility] Comment on above: Performed By: #### D IFF CBC, TROP, CMP, T4F, PTT, CRP, T4T, PT, TSH3 #### [facility] [address] [place] [address] RBC (Bld) [#/Vol] 4.23 10*6/uL Normal 3.60-5.00 [facility] Comment on above: Performed By: #### D IFF CBC, TROP, CMP, T4F, PTT, CRP, T4T, PT, TSH3 #### [facility] [address] [place] [address] WBC (Bld) [#/Vol] 15.8 10*3/uL High 4.5-11.0 [facility] Comment on above: Performed By: #### D IFF CBC, TROP, CMP, T4F, PTT, CRP, T4T, PT, TSH3 #### [facility] [address] [place] [address] Comprehensive Metabolic Pane brandee 05-14-2020 Albumin [Mass/Vol] 2.9 g/dL Low 3.2-5.5 [facility] Comment on above: Performed By: #### D IFF CBC, TROP, CMP, T4F, PTT, CRP, T4T, PT, TSH3 #### [facility] [address] [place] [address] Albumin/Globulin [Mass ratio] 0.9 {ratio} Normal [facility] Comment on above: Performed By: #### D IFF CBC, TROP, CMP, T4F, PTT, CRP, T4T, PT, TSH3 #### [facility] [address] [place] [address] ALP [Catalytic activity/Vol] 66 U/L Normal 32-92 [facility] Comment on above: Performed By: #### D IFF CBC, TROP, CMP, T4F, PTT, CRP, T4T, PT, TSH3 #### [address] [place] [address] [place] ALT [Catalytic activity/Vol] 34 U/L Normal 10-60 [facility] Comment on above: Performed By: #### D IFF CBC, TROP, CMP, T4F, PTT, CRP, T4T, PT, TSH3 #### [facility] [address] AST [Catalytic activity/Vol] 25 U/L Normal 10-42 [facility] Comment on above: Performed By: #### D IFF CBC, TROP, CMP, T4F, PTT, CRP, T4T, PT, TSH3 #### [facility] [address] Bilirubin [Mass/Vol] 1.0 mg/dL Normal 0.3-1.2 [facility] Comment on above: Performed By: #### D IFF CBC, TROP, CMP, T4F, PTT, CRP, T4T, PT, TSH3 #### [facility] [address] [place] [address] Calcium [Mass/Vol] 8.5 mg/dL Normal 8.2-10.2 [facility] Comment on above: Performed By: #### D IFF CBC, TROP, CMP, T4F, PTT, CRP, T4T, PT, TSH3 #### [address] Chloride [Moles/Vol] 83 mmol/L Low 95-114 [facility] Comment on above: Performed By: #### D IFF CBC, TROP, CMP, T4F, PTT, CRP, T4T, PT, TSH3 #### [address] CO2 [Moles/Vol] 37.8 mmol/L High 22.0-30.0 [facility] Comment on above: Performed By: #### D IFF CBC, TROP, CMP, T4F, PTT, CRP, T4T, PT, TSH3 #### [address] Creatinine [Mass/Vol] 0.68 mg/dL Normal 0.44-1.03 [facility] Comment on above: Performed By: #### D IFF CBC, TROP, CMP, T4F, PTT, CRP, T4T, PT, TSH3 #### [facility] [address] Creatinine Clr Calc Pharmacy 114.34 [facility] Comment on above: Result Comment: PERF ORMED BY: [place] [address] PATHOLOGIST [employer]Y CARDOZO M.D. Performed By: #### D IFF CBC, TROP, CMP, T4F, PTT, CRP, T4T, PT, TSH3 #### [address] Estimated GFR ( Jasmin > 60 [facility] Comment on above: Result Comment: GFR estimated reference range: According to KDOQI guidelines, <60 ml/min/1.73m2 is sufficient to diagnose a patient with chronic kidney disease. Performed By: #### D IFF CBC, TROP, CMP, T4F, PTT, CRP, T4T, PT, TSH3 #### [facility] [address] Estimated GFR (Non- Am > 60 [facility] Comment on above: Performed By: #### D IFF CBC, TROP, CMP, T4F, PTT, CRP, T4T, PT, TSH3 #### [facility] [address] Globulin (S) [Mass/Vol] 3.1 g/dL [facility] Comment on above: Performed By: #### D IFF CBC, TROP, CMP, T4F, PTT, CRP, T4T, PT, TSH3 #### [address] Glucose [Mass/Vol] 235 mg/dL High 70-100 [facility] Comment on above: Result Comment: [place] Glucose Reference Range is dependent on time and content of last meal. Glucose of more than 200 mg/dL in a nonstressed, ambulatory subject supports the diagnosis of Diabetes Mellitus. ADA recommended reference range Performed By: #### D IFF CBC, TROP, CMP, T4F, PTT, CRP, T4T, PT, TSH3 #### [address] Potassium [Moles/Vol] 3.0 mmol/L Low 3.5-5.1 [facility] Comment on above: Performed By: #### D IFF CBC, TROP, CMP, T4F, PTT, CRP, T4T, PT, TSH3 #### [address] Protein [Mass/Vol] 6.0 g/dL Low 6.1-7.9 [facility] Comment on above: Performed By: #### D IFF CBC, TROP, CMP, T4F, PTT, CRP, T4T, PT, TSH3 #### [address] Sodium [Moles/Vol] 133 mmol/L Low 136-146 [facility] Comment on above: Performed By: #### D IFF CBC, TROP, CMP, T4F, PTT, CRP, T4T, PT, TSH3 #### [address] Urea nitrogen [Mass/Vol] 26 mg/dL High 9-23 [facility] Comment on above: Performed By: #### D IFF CBC, TROP, CMP, T4F, PTT, CRP, T4T, PT, TSH3 #### [address] D-Dimer High Sensitivityon 0 05-14-2020 D-Dimer High Sensitivity < 200 Normal 0-243 [facility] Comment on above: Result Comment: The reference range for D-dimer is <243 ng/mL D-dimer units. D-dimer results must be used in conjunction with a clinical pretest probability (PTP) assessment model for deep vein thrombosis (DVT) and pulmonary embolism (PE). Results <230 ng/mL d-dimer units can be used as a negative predictor in patients with low or moderate probability for DVT/PE. Results above the exclusion threshold of 230 ng/ml D-dimer units for DVT/PE may indicate the need for further diagnostic testing. D-Dimer can be increased in hospitalized patients due to co-morbid conditions. PERFORMED BY: [address] [place] [address] PATHOLOGIST [employer]Y CARDOZO M.D. Performed By: #### D IFF CBC, TROP, CMP, T4F, PTT, CRP, T4T, PT, TSH3 #### [place] [id number] [facility] Glucose Poct Glucometerson 0 05-14-2020 Commemt1 Glu2: Cleaned Meter Normal [facility] Comment on above: Result Comment: PERF ORMED BY: [place] [address] PATHOLOGIST [employer]Y CARDOZO M.D. Performed By: #### D IFF CBC, TROP, CMP, T4F, PTT, CRP, T4T, PT, TSH3 #### [place] [id number] [facility] Glucose [Mass/Vol] 209 mg/dL Normal [facility] Comment on above: Result Comment: [place] om Glucose Reference Range is dependent on time and content of last meal. Glucose of more than 200 mg/dL in a nonstressed, ambulatory subject supports the diagnosis of Diabetes Mellitus. Performed By: #### D IFF CBC, TROP, CMP, T4F, PTT, CRP, T4T, PT, TSH3 #### [address] [address] [facility] Glucose [Mass/Vol] 280 mg/dL Normal [facility] Comment on above: Result Comment: [place] om Glucose Reference Range is dependent on time and content of last meal. Glucose of more than 200 mg/dL in a nonstressed, ambulatory subject supports the diagnosis of Diabetes Mellitus. PERFORMED BY: [address] [address] PATHOLOGIST [employer]Y CARDOZO M.D. Performed By: #### D DIMER #### [address] [address] [facility] Glucose [Mass/Vol] 270 mg/dL Normal [facility] Comment on above: Result Comment: [place] om Glucose Reference Range is dependent on time and content of last meal. Glucose of more than 200 mg/dL in a nonstressed, ambulatory subject supports the diagnosis of Diabetes Mellitus. PERFORMED BY: [place] [address] PATHOLOGIST [employer]Y CARDOZO M.D. Performed By: #### D DIMER #### [address] Glucose [Mass/Vol] 278 mg/dL Normal [facility] Comment on above: Result Comment: [place] om Glucose Reference Range is dependent on time and content of last meal. Glucose of more than 200 mg/dL in a nonstressed, ambulatory subject supports the diagnosis of Diabetes Mellitus. PERFORMED BY: [place] [address] PATHOLOGIST [employer]Y CARDOZO M.D. Performed By: #### D IFF CBC, TROP, CMP, T4F, PTT, CRP, T4T, PT, TSH3 #### [address] Comprehensive Metabolic Pane brandee 05-13-2020 Albumin [Mass/Vol] 3.0 g/dL Low 3.2-5.5 [facility] Comment on above: Performed By: #### D IFF CBC, TROP, CMP, T4F, PTT, CRP, T4T, PT, TSH3 #### [address] Albumin/Globulin [Mass ratio] 1.0 {ratio} Normal [facility] Comment on above: Performed By: #### D IFF CBC, TROP, CMP, T4F, PTT, CRP, T4T, PT, TSH3 #### [address] ALP [Catalytic activity/Vol] 65 U/L Normal 32-92 [facility] Comment on above: Performed By: #### D IFF CBC, TROP, CMP, T4F, PTT, CRP, T4T, PT, TSH3 #### [address] [place] [address] [place] ALT [Catalytic activity/Vol] 36 U/L Normal 10-60 [facility] Comment on above: Performed By: #### D IFF CBC, TROP, CMP, T4F, PTT, CRP, T4T, PT, TSH3 #### [facility] [address] AST [Catalytic activity/Vol] 24 U/L Normal 10-42 [facility] Comment on above: Performed By: #### D IFF CBC, TROP, CMP, T4F, PTT, CRP, T4T, PT, TSH3 #### [facility] [address] Bilirubin [Mass/Vol] 0.9 mg/dL Normal 0.3-1.2 [facility] Comment on above: Performed By: #### D IFF CBC, TROP, CMP, T4F, PTT, CRP, T4T, PT, TSH3 #### [facility] [address] Calcium [Mass/Vol] 8.4 mg/dL Normal 8.2-10.2 [facility] Comment on above: Performed By: #### D IFF CBC, TROP, CMP, T4F, PTT, CRP, T4T, PT, TSH3 #### [facility] [address] Chloride [Moles/Vol] 84 mmol/L Low 95-114 [facility] Comment on above: Performed By: #### D IFF CBC, TROP, CMP, T4F, PTT, CRP, T4T, PT, TSH3 #### [facility] [address] CO2 [Moles/Vol] 36.9 mmol/L High 22.0-30.0 [facility] Comment on above: Performed By: #### D IFF CBC, TROP, CMP, T4F, PTT, CRP, T4T, PT, TSH3 #### [facility] [address] Creatinine [Mass/Vol] 0.61 mg/dL Normal 0.44-1.03 [facility] Comment on above: Performed By: #### D IFF CBC, TROP, CMP, T4F, PTT, CRP, T4T, PT, TSH3 #### [address] Creatinine Clr Calc Pharmacy 128.52 [facility] Comment on above: Result Comment: PERF ORMED BY: [place] [address] PATHOLOGIST [employer]Y CARDOZO M.D. Performed By: #### D IFF CBC, TROP, CMP, T4F, PTT, CRP, T4T, PT, TSH3 #### [address] Estimated GFR ( Jasmin > 60 [facility] Comment on above: Result Comment: GFR estimated reference range: According to KDOQI guidelines, <60 ml/min/1.73m2 is sufficient to diagnose a patient with chronic kidney disease. Performed By: #### D IFF CBC, TROP, CMP, T4F, PTT, CRP, T4T, PT, TSH3 #### [address] Estimated GFR (Non- Am > 60 [facility] Comment on above: Performed By: #### D IFF CBC, TROP, CMP, T4F, PTT, CRP, T4T, PT, TSH3 #### [address] Globulin (S) [Mass/Vol] 3.1 g/dL [facility] Comment on above: Performed By: #### D IFF CBC, TROP, CMP, T4F, PTT, CRP, T4T, PT, TSH3 #### [address] Glucose [Mass/Vol] 225 mg/dL High 70-100 [facility] Comment on above: Result Comment: [place] Glucose Reference Range is dependent on time and content of last meal. Glucose of more than 200 mg/dL in a nonstressed, ambulatory subject supports the diagnosis of Diabetes Mellitus. ADA recommended reference range Performed By: #### D IFF CBC, TROP, CMP, T4F, PTT, CRP, T4T, PT, TSH3 #### [facility] [address] Potassium [Moles/Vol] 3.4 mmol/L Low 3.5-5.1 [facility] Comment on above: Performed By: #### D IFF CBC, TROP, CMP, T4F, PTT, CRP, T4T, PT, TSH3 #### [facility] [address] Protein [Mass/Vol] 6.1 g/dL Normal 6.1-7.9 [facility] Comment on above: Performed By: #### D IFF CBC, TROP, CMP, T4F, PTT, CRP, T4T, PT, TSH3 #### [facility] [address] Sodium [Moles/Vol] 133 mmol/L Low 136-146 [facility] Comment on above: Performed By: #### D IFF CBC, TROP, CMP, T4F, PTT, CRP, T4T, PT, TSH3 #### [facility] [address] Urea nitrogen [Mass/Vol] 27 mg/dL High 9-23 [facility] Comment on above: Performed By: #### D IFF CBC, TROP, CMP, T4F, PTT, CRP, T4T, PT, TSH3 #### [address] Glucose Poct Glucometerson 0 05-13-2020 Glucose [Mass/Vol] 296 mg/dL Normal [facility] Comment on above: Result Comment: [facility] Glucose Reference Range is dependent on time and content of last meal. Glucose of more than 200 mg/dL in a nonstressed, ambulatory subject supports the diagnosis of Diabetes Mellitus. PERFORMED BY: [place] [address] PATHOLOGIST [employer]Y CARDOZO M.D. Performed By: #### D IFF CBC, TROP, CMP, T4F, PTT, CRP, T4T, PT, TSH3 #### [place] [id number] [facility] Glucose [Mass/Vol] 395 mg/dL Normal [facility] Comment on above: Result Comment: [place] [facility] Glucose Reference Range is dependent on time and content of last meal. Glucose of more than 200 mg/dL in a nonstressed, ambulatory subject supports the diagnosis of Diabetes Mellitus. PERFORMED BY: [place] [address] PATHOLOGIST [employer]Y CARDOZO M.D. Performed By: #### D IFF CBC, TROP, CMP, T4F, PTT, CRP, T4T, PT, TSH3 #### [address] Glucose [Mass/Vol] 235 mg/dL Normal [facility] Comment on above: Result Comment: [place] [facility] Glucose Reference Range is dependent on time and content of last meal. Glucose of more than 200 mg/dL in a nonstressed, ambulatory subject supports the diagnosis of Diabetes Mellitus. PERFORMED BY: [place] [address] PATHOLOGIST [employer]Y CARDOZO M.D. Performed By: #### D IFF CBC, TROP, CMP, T4F, PTT, CRP, T4T, PT, TSH3 #### [address] Glucose [Mass/Vol] 219 mg/dL Normal [facility] Comment on above: Result Comment: [place] [facility] Glucose Reference Range is dependent on time and content of last meal. Glucose of more than 200 mg/dL in a nonstressed, ambulatory subject supports the diagnosis of Diabetes Mellitus. PERFORMED BY: [place] [address] PATHOLOGIST [employer] CARDOZO M.D. Performed By: #### D DIMER #### [address] Comprehensive Metabolic Pane brandee 05-12-2020 Albumin [Mass/Vol] 2.9 g/dL Low 3.2-5.5 [facility] Comment on above: Performed By: #### D IFF CBC, TROP, CMP, T4F, PTT, CRP, T4T, PT, TSH3 #### [facility] [address] Albumin/Globulin [Mass ratio] 0.9 {ratio} Normal [facility] Comment on above: Performed By: #### D IFF CBC, TROP, CMP, T4F, PTT, CRP, T4T, PT, TSH3 #### [facility] [address] [place] [address] ALP [Catalytic activity/Vol] 65 U/L Normal 32-92 [facility] Comment on above: Performed By: #### D IFF CBC, TROP, CMP, T4F, PTT, CRP, T4T, PT, TSH3 #### [address] ALT [Catalytic activity/Vol] 37 U/L Normal 10-60 [facility] Comment on above: Performed By: #### D IFF CBC, TROP, CMP, T4F, PTT, CRP, T4T, PT, TSH3 #### [facility] [address] [place] [address] AST [Catalytic activity/Vol] 24 U/L Normal 10-42 [facility] Comment on above: Performed By: #### D IFF CBC, TROP, CMP, T4F, PTT, CRP, T4T, PT, TSH3 #### [facility] [address] [place] [address] Bilirubin [Mass/Vol] 0.9 mg/dL Normal 0.3-1.2 [facility] Comment on above: Performed By: #### D IFF CBC, TROP, CMP, T4F, PTT, CRP, T4T, PT, TSH3 #### [facility] [address] [place] [address] Calcium [Mass/Vol] 8.5 mg/dL Normal 8.2-10.2 [facility] Comment on above: Performed By: #### D IFF CBC, TROP, CMP, T4F, PTT, CRP, T4T, PT, TSH3 #### [facility] [address] Chloride [Moles/Vol] 87 mmol/L Low 95-114 [facility] Comment on above: Performed By: #### D IFF CBC, TROP, CMP, T4F, PTT, CRP, T4T, PT, TSH3 #### [facility] [address] CO2 [Moles/Vol] 36.6 mmol/L High 22.0-30.0 [facility] Comment on above: Performed By: #### D IFF CBC, TROP, CMP, T4F, PTT, CRP, T4T, PT, TSH3 #### [address] Creatinine [Mass/Vol] 0.57 mg/dL Normal 0.44-1.03 [facility] Comment on above: Performed By: #### D IFF CBC, TROP, CMP, T4F, PTT, CRP, T4T, PT, TSH3 #### [address] Creatinine Clr Calc Pharmacy 136.79 [facility] Comment on above: Performed By: #### D IFF CBC, TROP, CMP, T4F, PTT, CRP, T4T, PT, TSH3 #### [address] Estimated GFR ( Jasmin > 60 [facility] Comment on above: Result Comment: GFR estimated reference range: According to KDOQI guidelines, <60 ml/min/1.73m2 is sufficient to diagnose a patient with chronic kidney disease. Performed By: #### D IFF CBC, TROP, CMP, T4F, PTT, CRP, T4T, PT, TSH3 #### [address] Estimated GFR (Non- Am > 60 [facility] Comment on above: Performed By: #### D IFF CBC, TROP, CMP, T4F, PTT, CRP, T4T, PT, TSH3 #### [address] Globulin (S) [Mass/Vol] 3.2 g/dL Normal [facility] Comment on above: Performed By: #### D IFF CBC, TROP, CMP, T4F, PTT, CRP, T4T, PT, TSH3 #### [facility] [address] Glucose [Mass/Vol] 221 mg/dL High 70-100 [facility] Comment on above: Result Comment: [facility] Glucose Reference Range is dependent on time and content of last meal. Glucose of more than 200 mg/dL in a nonstressed, ambulatory subject supports the diagnosis of Diabetes Mellitus. ADA recommended reference range Performed By: #### D IFF CBC, TROP, CMP, T4F, PTT, CRP, T4T, PT, TSH3 #### [facility] [address] Potassium [Moles/Vol] 4.0 mmol/L Normal 3.5-5.1 [facility] Comment on above: Performed By: #### D IFF CBC, TROP, CMP, T4F, PTT, CRP, T4T, PT, TSH3 #### [facility] [address] Protein [Mass/Vol] 6.1 g/dL Normal 6.1-7.9 [facility] Comment on above: Performed By: #### D IFF CBC, TROP, CMP, T4F, PTT, CRP, T4T, PT, TSH3 #### [facility] [address] Sodium [Moles/Vol] 135 mmol/L Low 136-146 [facility] Comment on above: Performed By: #### D IFF CBC, TROP, CMP, T4F, PTT, CRP, T4T, PT, TSH3 #### [facility] [address] Urea nitrogen [Mass/Vol] 24 mg/dL High 9-23 [facility] Comment on above: Performed By: #### D IFF CBC, TROP, CMP, T4F, PTT, CRP, T4T, PT, TSH3 #### [address] Glucose Poct Glucometerson 0 05-12-2020 Commemt1 Glu2: Cleaned Meter [facility] Comment on above: Result Comment: PERF ORMED BY: [place] [address] PATHOLOGIST [employer]Y CARDOZO M.D. Performed By: #### D DIMER #### [address] Glucose [Mass/Vol] 392 mg/dL Normal [facility] Comment on above: Result Comment: [place] [facility] Glucose Reference Range is dependent on time and content of last meal. Glucose of more than 200 mg/dL in a nonstressed, ambulatory subject supports the diagnosis of Diabetes Mellitus. Performed By: #### D DIMER #### [address] Commemt1 Glu2: Cleaned Meter [facility] Comment on above: Result Comment: PERF ORMED BY: [place] [address] PATHOLOGIST [employer]Y CARDOZO M.D. Performed By: #### D IFF CBC, TROP, CMP, T4F, PTT, CRP, T4T, PT, TSH3 #### [address] Glucose [Mass/Vol] 330 mg/dL Normal [facility] Comment on above: Result Comment: [place] [facility] Glucose Reference Range is dependent on time and content of last meal. Glucose of more than 200 mg/dL in a nonstressed, ambulatory subject supports the diagnosis of Diabetes Mellitus. Performed By: #### D IFF CBC, TROP, CMP, T4F, PTT, CRP, T4T, PT, TSH3 #### [address] Commemt1 Glu2: Cleaned Meter [facility] Comment on above: Result Comment: PERF ORMED BY: [place] [address] PATHOLOGIST [employer]Y CARDOZO M.D. Performed By: #### D IFF CBC, TROP, CMP, T4F, PTT, CRP, T4T, PT, TSH3 #### [facility] [address] Glucose [Mass/Vol] 286 mg/dL Normal [facility] Comment on above: Result Comment: [place] [facility] Glucose Reference Range is dependent on time and content of last meal. Glucose of more than 200 mg/dL in a nonstressed, ambulatory subject supports the diagnosis of Diabetes Mellitus. Performed By: #### D IFF CBC, TROP, CMP, T4F, PTT, CRP, T4T, PT, TSH3 #### [facility] [address] Commemt1 Glu2: Cleaned Meter Normal [facility] Comment on above: Result Comment: PERF ORMED BY: [place] [address] PATHOLOGIST [employer]Y CARDOZO M.D. Performed By: #### D IFF CBC, TROP, CMP, T4F, PTT, CRP, T4T, PT, TSH3 #### [facility] [address] Glucose [Mass/Vol] 166 mg/dL Normal [facility] Comment on above: Result Comment: [place] [facility] Glucose Reference Range is dependent on time and content of last meal. Glucose of more than 200 mg/dL in a nonstressed, ambulatory subject supports the diagnosis of Diabetes Mellitus. Performed By: #### D IFF CBC, TROP, CMP, T4F, PTT, CRP, T4T, PT, TSH3 #### [facility] [address] [place] [id number] [facility] Glucose [Mass/Vol] 284 mg/dL Normal [facility] Comment on above: Result Comment: [place] om Glucose Reference Range is dependent on time and content of last meal. Glucose of more than 200 mg/dL in a nonstressed, ambulatory subject supports the diagnosis of Diabetes Mellitus. PERFORMED BY: [facility] [address] [place] [address] PATHOLOGIST [employer]Y CARDOZO M.D. Performed By: #### D IFF CBC, TROP, CMP, T4F, PTT, CRP, T4T, PT, TSH3 #### [address] Magnesiumon 05-12-2020 Magnesium [Mass/Vol] 2.3 mg/dL Normal 1.6-2.6 [facility] Comment on above: Result Comment: PERF ORMED BY: [place] [address] PATHOLOGIST [employer] CARDOZO M.D. Performed By: #### D IFF CBC, TROP, CMP, T4F, PTT, CRP, T4T, PT, TSH3 #### [address] Scan and CBCon 05-12-2020 Basophils (Bld) [#/Vol] 0.0 10*3/uL Normal 0.0-0.2 [facility] Comment on above: Performed By: #### D IFF CBC, TROP, CMP, T4F, PTT, CRP, T4T, PT, TSH3 #### [address] Basophils/100 WBC (Bld) 0.4 % Normal . [facility] Comment on above: Performed By: #### D IFF CBC, TROP, CMP, T4F, PTT, CRP, T4T, PT, TSH3 #### [address] Eosinophils (Bld) [#/Vol] 0.0 10*3/uL Normal 0.0-0.45 [facility] Comment on above: Performed By: #### D IFF CBC, TROP, CMP, T4F, PTT, CRP, T4T, PT, TSH3 #### [address] Eosinophils/100 WBC (Bld) 0.2 % Normal . [facility] Comment on above: Performed By: #### D IFF CBC, TROP, CMP, T4F, PTT, CRP, T4T, PT, TSH3 #### [address] Erythrocyte distribution width (RBC) [Ratio] 13.8 % Normal 11.9-15.3 [facility] Comment on above: Performed By: #### D IFF CBC, TROP, CMP, T4F, PTT, CRP, T4T, PT, TSH3 #### [address] Hematocrit (Bld) [Volume fraction] 38.5 % Normal 34.0-46.4 [facility] Comment on above: Performed By: #### D IFF CBC, TROP, CMP, T4F, PTT, CRP, T4T, PT, TSH3 #### [address] Hemoglobin (Bld) [Mass/Vol] 13.0 g/dL Normal 11.8-15.4 [facility] Comment on above: Performed By: #### D IFF CBC, TROP, CMP, T4F, PTT, CRP, T4T, PT, TSH3 #### [address] Lymphocytes (Bld) [#/Vol] 0.9 10*3/uL Low 1.00-4.8 [facility] Comment on above: Performed By: #### D IFF CBC, TROP, CMP, T4F, PTT, CRP, T4T, PT, TSH3 #### [address] Lymphocytes/100 WBC (Bld) 7.0 % Normal . [facility] Comment on above: Performed By: #### D IFF CBC, TROP, CMP, T4F, PTT, CRP, T4T, PT, TSH3 #### [address] MCH (RBC) [Entitic mass] 30.8 pg Normal 24.7-34.3 [facility] Comment on above: Performed By: #### D IFF CBC, TROP, CMP, T4F, PTT, CRP, T4T, PT, TSH3 #### [address] [place] [address] [place] MCV (RBC) [Entitic vol] 90.9 fL Normal 80-100 [facility] Comment on above: Performed By: #### D IFF CBC, TROP, CMP, T4F, PTT, CRP, T4T, PT, TSH3 #### [facility] [address] Mean Corpuscular HGB Conc 33.9 g/dL Normal 32.0-35.0 [facility] Comment on above: Performed By: #### D IFF CBC, TROP, CMP, T4F, PTT, CRP, T4T, PT, TSH3 #### [address] Monocytes (Bld) [#/Vol] 1.0 10*3/uL High 0.0-0.8 [facility] Comment on above: Performed By: #### D IFF CBC, TROP, CMP, T4F, PTT, CRP, T4T, PT, TSH3 #### [address] Monocytes/100 WBC (Bld) 8.0 % Normal . [facility] Comment on above: Performed By: #### D IFF CBC, TROP, CMP, T4F, PTT, CRP, T4T, PT, TSH3 #### [address] Neutrophils (Bld) [#/Vol] 10.9 10*3/uL High 1.8-7.7 [facility] Comment on above: Performed By: #### D IFF CBC, TROP, CMP, T4F, PTT, CRP, T4T, PT, TSH3 #### [place] [address] [place] Neutrophils/100 WBC (Bld) 84.4 % Normal . [facility] Comment on above: Performed By: #### D IFF CBC, TROP, CMP, T4F, PTT, CRP, T4T, PT, TSH3 #### [place] [address] [place] Nucleated RBC/100 WBC (Bld) [Ratio] 0.0 % Normal 0-0.5 [facility] Comment on above: Performed By: #### D IFF CBC, TROP, CMP, T4F, PTT, CRP, T4T, PT, TSH3 #### [facility] [address] Platelet Estimate Normal Normal Normal [facility] Comment on above: Performed By: #### D IFF CBC, TROP, CMP, T4F, PTT, CRP, T4T, PT, TSH3 #### [facility] [address] Platelet mean volume (Bld) [Entitic vol] 8.1 fL Normal 6.3-10.7 [facility] Comment on above: Performed By: #### D IFF CBC, TROP, CMP, T4F, PTT, CRP, T4T, PT, TSH3 #### [address] Platelet Morphology Normal Normal Normal [facility] Comment on above: Result Comment: PERF ORMED BY: [place] [address] PATHOLOGIST [employer]Y CARDOZO M.D. Performed By: #### D IFF CBC, TROP, CMP, T4F, PTT, CRP, T4T, PT, TSH3 #### [address] Platelets (Bld) [#/Vol] 303 10*3/uL Normal 150-450 [facility] Comment on above: Performed By: #### D IFF CBC, TROP, CMP, T4F, PTT, CRP, T4T, PT, TSH3 #### [address] RBC (Bld) [#/Vol] 4.23 10*6/uL Normal 3.60-5.00 [facility] Comment on above: Performed By: #### D IFF CBC, TROP, CMP, T4F, PTT, CRP, T4T, PT, TSH3 #### [address] Rouleaux Slight Normal [facility] Comment on above: Performed By: #### D IFF CBC, TROP, CMP, T4F, PTT, CRP, T4T, PT, TSH3 #### [facility] [address] WBC (Bld) [#/Vol] 12.9 10*3/uL High 4.5-11.0 [facility] Comment on above: Performed By: #### D IFF CBC, TROP, CMP, T4F, PTT, CRP, T4T, PT, TSH3 #### [facility] [address] C-Reactive Proteinon 021 C-Reactive Protein 1.5 mg/dL High 0.0-1.0 [facility] Comment on above: Result Comment: PERF ORMED BY: [place] [address] PATHOLOGIST [employer] CARDOZO M.D. Performed By: #### D IFF CBC, TROP, CMP, T4F, PTT, CRP, T4T, PT, TSH3 #### [address] Comprehensive Metabolic Pane brandee 05-11-2020 Albumin [Mass/Vol] 2.8 g/dL Low 3.2-5.5 [facility] Comment on above: Performed By: #### D IFF CBC, TROP, CMP, T4F, PTT, CRP, T4T, PT, TSH3 #### [address] Albumin/Globulin [Mass ratio] 0.9 {ratio} [facility] Comment on above: Performed By: #### D IFF CBC, TROP, CMP, T4F, PTT, CRP, T4T, PT, TSH3 #### [address] ALP [Catalytic activity/Vol] 58 U/L Normal 32-92 [facility] Comment on above: Performed By: #### D IFF CBC, TROP, CMP, T4F, PTT, CRP, T4T, PT, TSH3 #### [facility] [address] ALT [Catalytic activity/Vol] 32 U/L Normal 10-60 [facility] Comment on above: Performed By: #### D IFF CBC, TROP, CMP, T4F, PTT, CRP, T4T, PT, TSH3 #### [facility] [address] AST [Catalytic activity/Vol] 20 U/L Normal 10-42 [facility] Comment on above: Performed By: #### D IFF CBC, TROP, CMP, T4F, PTT, CRP, T4T, PT, TSH3 #### [facility] [address] [place] [address] Bilirubin [Mass/Vol] 0.9 mg/dL Normal 0.3-1.2 [facility] Comment on above: Performed By: #### D IFF CBC, TROP, CMP, T4F, PTT, CRP, T4T, PT, TSH3 #### [address] Calcium [Mass/Vol] 8.3 mg/dL Normal 8.2-10.2 [facility] Comment on above: Performed By: #### D IFF CBC, TROP, CMP, T4F, PTT, CRP, T4T, PT, TSH3 #### [facility] [address] [place] [address] Chloride [Moles/Vol] 87 mmol/L Low 95-114 [facility] Comment on above: Performed By: #### D IFF CBC, TROP, CMP, T4F, PTT, CRP, T4T, PT, TSH3 #### [facility] [address] [place] [address] CO2 [Moles/Vol] 36.6 mmol/L High 22.0-30.0 [facility] Comment on above: Performed By: #### D IFF CBC, TROP, CMP, T4F, PTT, CRP, T4T, PT, TSH3 #### [address] Creatinine [Mass/Vol] 0.65 mg/dL Normal 0.44-1.03 [facility] Comment on above: Performed By: #### D IFF CBC, TROP, CMP, T4F, PTT, CRP, T4T, PT, TSH3 #### [facility] [address] Creatinine Clr Calc Pharmacy 119.95 [facility] Comment on above: Performed By: #### D IFF CBC, TROP, CMP, T4F, PTT, CRP, T4T, PT, TSH3 #### [facility] [address] Estimated GFR ( Jasmin > 60 [facility] Comment on above: Result Comment: GFR estimated reference range: According to KDOQI guidelines, <60 ml/min/1.73m2 is sufficient to diagnose a patient with chronic kidney disease. Performed By: #### D IFF CBC, TROP, CMP, T4F, PTT, CRP, T4T, PT, TSH3 #### [facility] [address] Estimated GFR (Non- Am > 60 [facility] Comment on above: Performed By: #### D IFF CBC, TROP, CMP, T4F, PTT, CRP, T4T, PT, TSH3 #### [facility] [address] Globulin (S) [Mass/Vol] 3.2 g/dL [facility] Comment on above: Performed By: #### D IFF CBC, TROP, CMP, T4F, PTT, CRP, T4T, PT, TSH3 #### [facility] [address] Glucose [Mass/Vol] 175 mg/dL High 70-100 [facility] Comment on above: Result Comment: [place] Glucose Reference Range is dependent on time and content of last meal. Glucose of more than 200 mg/dL in a nonstressed, ambulatory subject supports the diagnosis of Diabetes Mellitus. ADA recommended reference range Performed By: #### D IFF CBC, TROP, CMP, T4F, PTT, CRP, T4T, PT, TSH3 #### [address] Potassium [Moles/Vol] 3.2 mmol/L Low 3.5-5.1 [facility] Comment on above: Performed By: #### D IFF CBC, TROP, CMP, T4F, PTT, CRP, T4T, PT, TSH3 #### [address] Protein [Mass/Vol] 6.0 g/dL Low 6.1-7.9 [facility] Comment on above: Performed By: #### D IFF CBC, TROP, CMP, T4F, PTT, CRP, T4T, PT, TSH3 #### [address] Sodium [Moles/Vol] 135 mmol/L Low 136-146 [facility] Comment on above: Performed By: #### D IFF CBC, TROP, CMP, T4F, PTT, CRP, T4T, PT, TSH3 #### [address] Urea nitrogen [Mass/Vol] 26 mg/dL High 9-23 [facility] Comment on above: Performed By: #### D IFF CBC, TROP, CMP, T4F, PTT, CRP, T4T, PT, TSH3 #### [address] D-Dimer High Sensitivityon 0 05-11-2020 D-Dimer High Sensitivity < 200 Normal 0-243 [facility] Comment on above: Result Comment: The reference range for D-dimer is <243 ng/mL D-dimer units. D-dimer results must be used in conjunction with a clinical pretest probability (PTP) assessment model for deep vein thrombosis (DVT) and pulmonary embolism (PE). Results <230 ng/mL d-dimer units can be used as a negative predictor in patients with low or moderate probability for DVT/PE. Results above the exclusion threshold of 230 ng/ml D-dimer units for DVT/PE may indicate the need for further diagnostic testing. D-Dimer can be increased in hospitalized patients due to co-morbid conditions. PERFORMED BY: [place] [id number] PATHOLOGIST [employer]Y CARDOZO M.D. Performed By: #### D IFF CBC, TROP, CMP, T4F, PTT, CRP, T4T, PT, TSH3 #### [place] [id number] [facility] ECG 12 lead ECGon 05-11-2020 ECG 12 lead ECG [facility] [place] [address] [place] [address] Electrocardiograph Report Signed Patient: Radha Boone MR#: [id number] : 1955 Acct:[id number] Age/Sex: 64 / F ADM Date: 05/04/20 Loc: Room: [address] [place] [address] Type: ADM IN Attending Dr: Meghana Julien MD Ordering Provider: Meghana Julien MD Date of Service: 05/11/20 ECG/ECG 12 lead ECG: baseline Copies to: Test Reason : Blood Pressure : / mmHG Vent. Rate : 061 BPM Atrial Rate : 061 BPM P-R Int : 192 ms QRS Dur : 092 ms QT Int : 456 ms P-R-T Axes : 018 -71 -24 degrees QTc Int : 459 ms Normal sinus rhythm Left axis deviation Incomplete right bundle branch block Anterior infarct , age undetermined Abnormal ECG No previous ECGs available Confirmed by LAMIN CORTÉS MD ([id number]) on 05/11/2020 3:30:00 PM Referred By: Electronically Signed By:LAMIN CORTÉS MD Transcribed By: MUS Dictated By: Lamin Cortés MD 05/11/20904 Signed By: 05/11/20 1530 Normal [facility] Glucose Poct Glucometerson 0 05-11-2020 Commemt1 Glu2: Cleaned Meter Normal [facility] Comment on above: Result Comment: PERF ORMED BY: [address] [address] PATHOLOGIST [employer]Y CARDOZO M.D. Performed By: #### D IFF CBC, TROP, CMP, T4F, PTT, CRP, T4T, PT, TSH3 #### [facility] [address] Glucose [Mass/Vol] 248 mg/dL Normal [facility] Comment on above: Result Comment: [place] om Glucose Reference Range is dependent on time and content of last meal. Glucose of more than 200 mg/dL in a nonstressed, ambulatory subject supports the diagnosis of Diabetes Mellitus. Performed By: #### D IFF CBC, TROP, CMP, T4F, PTT, CRP, T4T, PT, TSH3 #### [address] Commemt1 Glu2: Cleaned Meter Normal [facility] Comment on above: Result Comment: PERF ORMED BY: [place] [address] PATHOLOGIST [employer] CARDOZO M.D. Performed By: #### D IFF CBC, TROP, CMP, T4F, PTT, CRP, T4T, PT, TSH3 #### [address] Glucose [Mass/Vol] 321 mg/dL Normal [facility] Comment on above: Result Comment: [place] om Glucose Reference Range is dependent on time and content of last meal. Glucose of more than 200 mg/dL in a nonstressed, ambulatory subject supports the diagnosis of Diabetes Mellitus. Performed By: #### D IFF CBC, TROP, CMP, T4F, PTT, CRP, T4T, PT, TSH3 #### [address] Commemt1 Glu2: Cleaned Meter [facility] Comment on above: Result Comment: PERF ORMED BY: [place] [address] PATHOLOGIST [employer] CARDOZO M.D. Performed By: #### D IFF CBC, TROP, CMP, T4F, PTT, CRP, T4T, PT, TSH3 #### [address] Glucose [Mass/Vol] 186 mg/dL Normal [facility] Comment on above: Result Comment: [facility] Glucose Reference Range is dependent on time and content of last meal. Glucose of more than 200 mg/dL in a nonstressed, ambulatory subject supports the diagnosis of Diabetes Mellitus. Performed By: #### D IFF CBC, TROP, CMP, T4F, PTT, CRP, T4T, PT, TSH3 #### [address] Scan and CBCon 05-11-2020 Basophils (Bld) [#/Vol] 0.2 10*3/uL Normal 0.0-0.2 [facility] Comment on above: Performed By: #### D IFF CBC, TROP, CMP, T4F, PTT, CRP, T4T, PT, TSH3 #### [address] Basophils/100 WBC (Bld) 1.3 % Normal . [facility] Comment on above: Performed By: #### D IFF CBC, TROP, CMP, T4F, PTT, CRP, T4T, PT, TSH3 #### [address] Eosinophils (Bld) [#/Vol] 0.1 10*3/uL Normal 0.0-0.45 [facility] Comment on above: Performed By: #### D IFF CBC, TROP, CMP, T4F, PTT, CRP, T4T, PT, TSH3 #### [address] Eosinophils/100 WBC (Bld) 0.6 % Normal . [facility] Comment on above: Performed By: #### D IFF CBC, TROP, CMP, T4F, PTT, CRP, T4T, PT, TSH3 #### [address] Erythrocyte distribution width (RBC) [Ratio] 14.1 % Normal 11.9-15.3 [facility] Comment on above: Performed By: #### D IFF CBC, TROP, CMP, T4F, PTT, CRP, T4T, PT, TSH3 #### [place] [id number] [place] Hematocrit (Bld) [Volume fraction] 38.7 % Normal 34.0-46.4 [facility] Comment on above: Performed By: #### D IFF CBC, TROP, CMP, T4F, PTT, CRP, T4T, PT, TSH3 #### [address] Hemoglobin (Bld) [Mass/Vol] 13.0 g/dL Normal 11.8-15.4 [facility] Comment on above: Performed By: #### D IFF CBC, TROP, CMP, T4F, PTT, CRP, T4T, PT, TSH3 #### [address] Lymphocytes (Bld) [#/Vol] 1.0 10*3/uL Normal 1.00-4.8 [facility] Comment on above: Performed By: #### D IFF CBC, TROP, CMP, T4F, PTT, CRP, T4T, PT, TSH3 #### [address] Lymphocytes/100 WBC (Bld) 7.4 % Normal . [facility] Comment on above: Performed By: #### D IFF CBC, TROP, CMP, T4F, PTT, CRP, T4T, PT, TSH3 #### [address] MCH (RBC) [Entitic mass] 30.2 pg Normal 24.7-34.3 [facility] Comment on above: Performed By: #### D IFF CBC, TROP, CMP, T4F, PTT, CRP, T4T, PT, TSH3 #### [address] MCV (RBC) [Entitic vol] 90.2 fL Normal 80-100 [facility] Comment on above: Performed By: #### D IFF CBC, TROP, CMP, T4F, PTT, CRP, T4T, PT, TSH3 #### [address] Mean Corpuscular HGB Conc 33.5 g/dL Normal 32.0-35.0 [facility] Comment on above: Performed By: #### D IFF CBC, TROP, CMP, T4F, PTT, CRP, T4T, PT, TSH3 #### [facility] [address] [place] [address] [place] Monocytes (Bld) [#/Vol] 1.1 10*3/uL High 0.0-0.8 [facility] Comment on above: Performed By: #### D IFF CBC, TROP, CMP, T4F, PTT, CRP, T4T, PT, TSH3 #### [facility] [address] [place] [address] [place] Monocytes/100 WBC (Bld) 8.7 % Normal . [facility] Comment on above: Performed By: #### D IFF CBC, TROP, CMP, T4F, PTT, CRP, T4T, PT, TSH3 #### [facility] [address] [place] [address] [place] Neutrophils (Bld) [#/Vol] 10.6 10*3/uL High 1.8-7.7 [facility] Comment on above: Performed By: #### D IFF CBC, TROP, CMP, T4F, PTT, CRP, T4T, PT, TSH3 #### [facility] [address] [place] [address] [place] Neutrophils/100 WBC (Bld) 82.0 % Normal . [facility] Comment on above: Performed By: #### D IFF CBC, TROP, CMP, T4F, PTT, CRP, T4T, PT, TSH3 #### [facility] [address] [place] [address] [place] Nucleated RBC/100 WBC (Bld) [Ratio] 0.1 % Normal 0-0.5 [facility] Comment on above: Performed By: #### D IFF CBC, TROP, CMP, T4F, PTT, CRP, T4T, PT, TSH3 #### [facility] [address] [place] [address] [place] Platelet Estimate Normal Normal Normal [facility] Comment on above: Performed By: #### D IFF CBC, TROP, CMP, T4F, PTT, CRP, T4T, PT, TSH3 #### [address] Platelet mean volume (Bld) [Entitic vol] 8.0 fL Normal 6.3-10.7 [facility] Comment on above: Performed By: #### D IFF CBC, TROP, CMP, T4F, PTT, CRP, T4T, PT, TSH3 #### [address] Platelet Morphology Normal Normal Normal [facility] Comment on above: Result Comment: PERF ORMED BY: [place] [address] PATHOLOGIST [employer]Y CARDOZO M.D. Performed By: #### D IFF CBC, TROP, CMP, T4F, PTT, CRP, T4T, PT, TSH3 #### [address] Platelets (Bld) [#/Vol] 304 10*3/uL Normal 150-450 [facility] Comment on above: Performed By: #### D IFF CBC, TROP, CMP, T4F, PTT, CRP, T4T, PT, TSH3 #### [address] RBC (Bld) [#/Vol] 4.29 10*6/uL Normal 3.60-5.00 [facility] Comment on above: Performed By: #### D IFF CBC, TROP, CMP, T4F, PTT, CRP, T4T, PT, TSH3 #### [address] RBC morphology finding Nom (Bld) Normal Normal [facility] Comment on above: Performed By: #### D IFF CBC, TROP, CMP, T4F, PTT, CRP, T4T, PT, TSH3 #### [address] WBC (Bld) [#/Vol] 12.9 10*3/uL High 4.5-11.0 [facility] Comment on above: Performed By: #### D IFF CBC, TROP, CMP, T4F, PTT, CRP, T4T, PT, TSH3 #### [address] C-Reactive Proteinon 021 C-Reactive Protein 3.0 mg/dL High 0.0-1.0 [facility] Comment on above: Result Comment: PERF ORMED BY: [place] [address] PATHOLOGIST [employer] CARDOZO M.D. Performed By: #### D IFF CBC, TROP, CMP, T4F, PTT, CRP, T4T, PT, TSH3 #### [address] Comprehensive Metabolic Pane brandee 05-10-2020 Albumin [Mass/Vol] 2.8 g/dL Low 3.2-5.5 [facility] Comment on above: Performed By: #### D IFF CBC, TROP, CMP, T4F, PTT, CRP, T4T, PT, TSH3 #### [address] Albumin/Globulin [Mass ratio] 0.8 {ratio} Normal [facility] Comment on above: Performed By: #### D IFF CBC, TROP, CMP, T4F, PTT, CRP, T4T, PT, TSH3 #### [facility] [address] [place] [address] [place] ALP [Catalytic activity/Vol] 58 U/L Normal 32-92 [facility] Comment on above: Performed By: #### D IFF CBC, TROP, CMP, T4F, PTT, CRP, T4T, PT, TSH3 #### [address] ALT [Catalytic activity/Vol] 34 U/L Normal 10-60 [facility] Comment on above: Performed By: #### D IFF CBC, TROP, CMP, T4F, PTT, CRP, T4T, PT, TSH3 #### [address] [place] [address] [place] AST [Catalytic activity/Vol] 20 U/L Normal 10-42 [facility] Comment on above: Performed By: #### D IFF CBC, TROP, CMP, T4F, PTT, CRP, T4T, PT, TSH3 #### [facility] [address] Bilirubin [Mass/Vol] 0.9 mg/dL Normal 0.3-1.2 [facility] Comment on above: Performed By: #### D IFF CBC, TROP, CMP, T4F, PTT, CRP, T4T, PT, TSH3 #### [facility] [address] Calcium [Mass/Vol] 8.4 mg/dL Normal 8.2-10.2 [facility] Comment on above: Performed By: #### D IFF CBC, TROP, CMP, T4F, PTT, CRP, T4T, PT, TSH3 #### [facility] [address] Chloride [Moles/Vol] 88 mmol/L Low 95-114 [facility] Comment on above: Performed By: #### D IFF CBC, TROP, CMP, T4F, PTT, CRP, T4T, PT, TSH3 #### [address] CO2 [Moles/Vol] 36.6 mmol/L High 22.0-30.0 [facility] Comment on above: Performed By: #### D IFF CBC, TROP, CMP, T4F, PTT, CRP, T4T, PT, TSH3 #### [facility] [address] Creatinine [Mass/Vol] 0.59 mg/dL Normal 0.44-1.03 [facility] Comment on above: Performed By: #### D IFF CBC, TROP, CMP, T4F, PTT, CRP, T4T, PT, TSH3 #### [address] Creatinine Clr Calc Pharmacy 133.61 Normal [facility] Comment on above: Performed By: #### D IFF CBC, TROP, CMP, T4F, PTT, CRP, T4T, PT, TSH3 #### [facility] [address] Estimated GFR ( Jasmin > 60 [facility] Comment on above: Result Comment: GFR estimated reference range: According to KDOQI guidelines, <60 ml/min/1.73m2 is sufficient to diagnose a patient with chronic kidney disease. Performed By: #### D IFF CBC, TROP, CMP, T4F, PTT, CRP, T4T, PT, TSH3 #### [facility] [address] Estimated GFR (Non- Am > 60 Normal [facility] Comment on above: Performed By: #### D IFF CBC, TROP, CMP, T4F, PTT, CRP, T4T, PT, TSH3 #### [address] Globulin (S) [Mass/Vol] 3.3 g/dL Normal [facility] Comment on above: Performed By: #### D IFF CBC, TROP, CMP, T4F, PTT, CRP, T4T, PT, TSH3 #### [address] Glucose [Mass/Vol] 177 mg/dL High 70-100 [facility] Comment on above: Result Comment: [place] Glucose Reference Range is dependent on time and content of last meal. Glucose of more than 200 mg/dL in a nonstressed, ambulatory subject supports the diagnosis of Diabetes Mellitus. ADA recommended reference range Performed By: #### D IFF CBC, TROP, CMP, T4F, PTT, CRP, T4T, PT, TSH3 #### [address] Potassium [Moles/Vol] 3.6 mmol/L Normal 3.5-5.1 [facility] Comment on above: Performed By: #### D IFF CBC, TROP, CMP, T4F, PTT, CRP, T4T, PT, TSH3 #### [facility] [address] [place] [address] Protein [Mass/Vol] 6.1 g/dL Normal 6.1-7.9 [facility] Comment on above: Performed By: #### D IFF CBC, TROP, CMP, T4F, PTT, CRP, T4T, PT, TSH3 #### [address] Sodium [Moles/Vol] 136 mmol/L Normal 136-146 [facility] Comment on above: Performed By: #### D IFF CBC, TROP, CMP, T4F, PTT, CRP, T4T, PT, TSH3 #### [address] Urea nitrogen [Mass/Vol] 20 mg/dL Normal 9-23 [facility] Comment on above: Performed By: #### D IFF CBC, TROP, CMP, T4F, PTT, CRP, T4T, PT, TSH3 #### [address] D-Dimer High Sensitivityon 0 05-10-2020 D-Dimer High Sensitivity 266 ng/mL High 0-243 [facility] Comment on above: Result Comment: The reference range for D-dimer is <243 ng/mL D-dimer units. D-dimer results must be used in conjunction with a clinical pretest probability (PTP) assessment model for deep vein thrombosis (DVT) and pulmonary embolism (PE). Results <230 ng/mL d-dimer units can be used as a negative predictor in patients with low or moderate probability for DVT/PE. Results above the exclusion threshold of 230 ng/ml D-dimer units for DVT/PE may indicate the need for further diagnostic testing. D-Dimer can be increased in hospitalized patients due to co-morbid conditions. PERFORMED BY: [place] [address] PATHOLOGIST [employer] CARDOZO M.D. Performed By: #### D IFF CBC, TROP, CMP, T4F, PTT, CRP, T4T, PT, TSH3 #### [address] Glucose Poct Glucometerson 0 05-10-2020 Commemt1 Glu2: Cleaned Meter [facility] Comment on above: Result Comment: PERF ORMED BY: [place] [address] PATHOLOGIST [employer] CARDOZO M.D. Performed By: #### D IFF CBC, TROP, CMP, T4F, PTT, CRP, T4T, PT, TSH3 #### [address] Glucose [Mass/Vol] 288 mg/dL Normal [facility] Comment on above: Result Comment: [place] om Glucose Reference Range is dependent on time and content of last meal. Glucose of more than 200 mg/dL in a nonstressed, ambulatory subject supports the diagnosis of Diabetes Mellitus. Performed By: #### D IFF CBC, TROP, CMP, T4F, PTT, CRP, T4T, PT, TSH3 #### [address] Commemt1 Glu2: Cleaned Meter [facility] Comment on above: Result Comment: PERF ORMED BY: [place] [address] PATHOLOGIST [employer] CARDOZO M.D. Performed By: #### D IFF CBC, TROP, CMP, T4F, PTT, CRP, T4T, PT, TSH3 #### [place] [address] [place] Glucose [Mass/Vol] 320 mg/dL Normal [facility] Comment on above: Result Comment: [place] om Glucose Reference Range is dependent on time and content of last meal. Glucose of more than 200 mg/dL in a nonstressed, ambulatory subject supports the diagnosis of Diabetes Mellitus. Performed By: #### D IFF CBC, TROP, CMP, T4F, PTT, CRP, T4T, PT, TSH3 #### [address] Commemt1 Glu2: Cleaned Meter Normal [facility] Comment on above: Result Comment: PERF ORMED BY: [place] [address] PATHOLOGIST [employer] CARDOZO M.D. Performed By: #### D IFF CBC, TROP, CMP, T4F, PTT, CRP, T4T, PT, TSH3 #### [address] Glucose [Mass/Vol] 286 mg/dL Normal [facility] Comment on above: Result Comment: [place] om Glucose Reference Range is dependent on time and content of last meal. Glucose of more than 200 mg/dL in a nonstressed, ambulatory subject supports the diagnosis of Diabetes Mellitus. Performed By: #### D IFF CBC, TROP, CMP, T4F, PTT, CRP, T4T, PT, TSH3 #### [address] Commemt1 Glu2: Cleaned Meter Normal [facility] Comment on above: Result Comment: PERF ORMED BY: [place] [address] PATHOLOGIST [employer] CARDOZO M.D. Performed By: #### D IFF CBC, TROP, CMP, T4F, PTT, CRP, T4T, PT, TSH3 #### [address] Glucose [Mass/Vol] 130 mg/dL Normal [facility] Comment on above: Result Comment: [place] om Glucose Reference Range is dependent on time and content of last meal. Glucose of more than 200 mg/dL in a nonstressed, ambulatory subject supports the diagnosis of Diabetes Mellitus. Performed By: #### D IFF CBC, TROP, CMP, T4F, PTT, CRP, T4T, PT, TSH3 #### [facility] [address] [place] [address] Scan and CBCon 05-10-2020 Basophils (Bld) [#/Vol] 0.0 10*3/uL Normal 0.0-0.2 [facility] Comment on above: Performed By: #### D IFF CBC, TROP, CMP, T4F, PTT, CRP, T4T, PT, TSH3 #### [facility] [address] Basophils/100 WBC (Bld) 0.2 % Normal . [facility] Comment on above: Performed By: #### D IFF CBC, TROP, CMP, T4F, PTT, CRP, T4T, PT, TSH3 #### [address] Eosinophils (Bld) [#/Vol] 0.1 10*3/uL Normal 0.0-0.45 [facility] Comment on above: Performed By: #### D IFF CBC, TROP, CMP, T4F, PTT, CRP, T4T, PT, TSH3 #### [address] Eosinophils/100 WBC (Bld) 0.7 % Normal . [facility] Comment on above: Performed By: #### D IFF CBC, TROP, CMP, T4F, PTT, CRP, T4T, PT, TSH3 #### [address] Erythrocyte distribution width (RBC) [Ratio] 13.9 % Normal 11.9-15.3 [facility] Comment on above: Performed By: #### D IFF CBC, TROP, CMP, T4F, PTT, CRP, T4T, PT, TSH3 #### [address] Hematocrit (Bld) [Volume fraction] 39.8 % Normal 34.0-46.4 [facility] Comment on above: Performed By: #### D IFF CBC, TROP, CMP, T4F, PTT, CRP, T4T, PT, TSH3 #### [address] Hemoglobin (Bld) [Mass/Vol] 13.1 g/dL Normal 11.8-15.4 [facility] Comment on above: Performed By: #### D IFF CBC, TROP, CMP, T4F, PTT, CRP, T4T, PT, TSH3 #### [address] Lymphocytes (Bld) [#/Vol] 0.9 10*3/uL Low 1.00-4.8 [facility] Comment on above: Performed By: #### D IFF CBC, TROP, CMP, T4F, PTT, CRP, T4T, PT, TSH3 #### [facility] [address] Lymphocytes/100 WBC (Bld) 7.9 % Normal . [facility] Comment on above: Performed By: #### D IFF CBC, TROP, CMP, T4F, PTT, CRP, T4T, PT, TSH3 #### [facility] [address] MCH (RBC) [Entitic mass] 29.9 pg Normal 24.7-34.3 [facility] Comment on above: Performed By: #### D IFF CBC, TROP, CMP, T4F, PTT, CRP, T4T, PT, TSH3 #### [address] MCV (RBC) [Entitic vol] 91.0 fL Normal 80-100 [facility] Comment on above: Performed By: #### D IFF CBC, TROP, CMP, T4F, PTT, CRP, T4T, PT, TSH3 #### [address] Mean Corpuscular HGB Conc 32.8 g/dL Normal 32.0-35.0 [facility] Comment on above: Performed By: #### D IFF CBC, TROP, CMP, T4F, PTT, CRP, T4T, PT, TSH3 #### [facility] [address] Monocytes (Bld) [#/Vol] 0.9 10*3/uL High 0.0-0.8 [facility] Comment on above: Performed By: #### D IFF CBC, TROP, CMP, T4F, PTT, CRP, T4T, PT, TSH3 #### [address] Monocytes/100 WBC (Bld) 7.8 % Normal . [facility] Comment on above: Performed By: #### D IFF CBC, TROP, CMP, T4F, PTT, CRP, T4T, PT, TSH3 #### [facility] [address] Neutrophils (Bld) [#/Vol] 9.3 10*3/uL High 1.8-7.7 [facility] Comment on above: Performed By: #### D IFF CBC, TROP, CMP, T4F, PTT, CRP, T4T, PT, TSH3 #### [facility] [address] Neutrophils/100 WBC (Bld) 83.4 % Normal . [facility] Comment on above: Performed By: #### D IFF CBC, TROP, CMP, T4F, PTT, CRP, T4T, PT, TSH3 #### [facility] [address] Nucleated RBC/100 WBC (Bld) [Ratio] 0.1 % Normal 0-0.5 [facility] Comment on above: Performed By: #### D IFF CBC, TROP, CMP, T4F, PTT, CRP, T4T, PT, TSH3 #### [facility] [address] Platelet Estimate Normal Normal Normal [facility] Comment on above: Performed By: #### D IFF CBC, TROP, CMP, T4F, PTT, CRP, T4T, PT, TSH3 #### [facility] [address] Platelet mean volume (Bld) [Entitic vol] 7.6 fL Normal 6.3-10.7 [facility] Comment on above: Performed By: #### D IFF CBC, TROP, CMP, T4F, PTT, CRP, T4T, PT, TSH3 #### [facility] [address] Platelet Morphology Normal Normal Normal [facility] Comment on above: Result Comment: PERF ORMED BY: [place] [address] PATHOLOGIST [employer] CARDOZO M.D. Performed By: #### D IFF CBC, TROP, CMP, T4F, PTT, CRP, T4T, PT, TSH3 #### [address] Platelets (Bld) [#/Vol] 293 10*3/uL Normal 150-450 [facility] Comment on above: Performed By: #### D IFF CBC, TROP, CMP, T4F, PTT, CRP, T4T, PT, TSH3 #### [address] RBC (Bld) [#/Vol] 4.37 10*6/uL Normal 3.60-5.00 [facility] Comment on above: Performed By: #### D IFF CBC, TROP, CMP, T4F, PTT, CRP, T4T, PT, TSH3 #### [address] RBC morphology finding Nom (Bld) Normal Normal [facility] Comment on above: Performed By: #### D IFF CBC, TROP, CMP, T4F, PTT, CRP, T4T, PT, TSH3 #### [address] WBC (Bld) [#/Vol] 11.2 10*3/uL High 4.5-11.0 [facility] Comment on above: Performed By: #### D IFF CBC, TROP, CMP, T4F, PTT, CRP, T4T, PT, TSH3 #### [address] C-Reactive Proteinon 05-09-2 021 C-Reactive Protein 4.1 mg/dL High 0.0-1.0 [facility] Comment on above: Result Comment: PERF ORMED BY: [place] [address] PATHOLOGIST [employer] CARDOZO M.D. Performed By: #### D IFF CBC, TROP, CMP, T4F, PTT, CRP, T4T, PT, TSH3 #### [facility] [address] Comprehensive Metabolic Pane brandee 05-09-2020 Albumin [Mass/Vol] 2.6 g/dL Low 3.2-5.5 [facility] Comment on above: Performed By: #### D IFF CBC, TROP, CMP, T4F, PTT, CRP, T4T, PT, TSH3 #### [facility] [address] [place] [address] Albumin/Globulin [Mass ratio] 0.8 {ratio} Normal [facility] Comment on above: Performed By: #### D IFF CBC, TROP, CMP, T4F, PTT, CRP, T4T, PT, TSH3 #### [address] ALP [Catalytic activity/Vol] 53 U/L Normal 32-92 [facility] Comment on above: Performed By: #### D IFF CBC, TROP, CMP, T4F, PTT, CRP, T4T, PT, TSH3 #### [address] ALT [Catalytic activity/Vol] 36 U/L Normal 10-60 [facility] Comment on above: Performed By: #### D IFF CBC, TROP, CMP, T4F, PTT, CRP, T4T, PT, TSH3 #### [facility] [address] [place] [address] AST [Catalytic activity/Vol] 21 U/L Normal 10-42 [facility] Comment on above: Performed By: #### D IFF CBC, TROP, CMP, T4F, PTT, CRP, T4T, PT, TSH3 #### [facility] [address] [place] [address] Bilirubin [Mass/Vol] 1.0 mg/dL Normal 0.3-1.2 [facility] Comment on above: Performed By: #### D IFF CBC, TROP, CMP, T4F, PTT, CRP, T4T, PT, TSH3 #### [facility] [address] [place] [address] Calcium [Mass/Vol] 8.1 mg/dL Low 8.2-10.2 [facility] Comment on above: Performed By: #### D IFF CBC, TROP, CMP, T4F, PTT, CRP, T4T, PT, TSH3 #### [facility] [address] Chloride [Moles/Vol] 91 mmol/L Low 95-114 [facility] Comment on above: Performed By: #### D IFF CBC, TROP, CMP, T4F, PTT, CRP, T4T, PT, TSH3 #### [facility] [address] CO2 [Moles/Vol] 35.8 mmol/L High 22.0-30.0 [facility] Comment on above: Performed By: #### D IFF CBC, TROP, CMP, T4F, PTT, CRP, T4T, PT, TSH3 #### [facility] [address] Creatinine [Mass/Vol] 0.61 mg/dL Normal 0.44-1.03 [facility] Comment on above: Performed By: #### D IFF CBC, TROP, CMP, T4F, PTT, CRP, T4T, PT, TSH3 #### [facility] [address] Creatinine Clr Calc Pharmacy 129.76 [facility] Comment on above: Performed By: #### D IFF CBC, TROP, CMP, T4F, PTT, CRP, T4T, PT, TSH3 #### [facility] [address] Estimated GFR ( Jasmin > 60 [facility] Comment on above: Result Comment: GFR estimated reference range: According to KDOQI guidelines, <60 ml/min/1.73m2 is sufficient to diagnose a patient with chronic kidney disease. Performed By: #### D IFF CBC, TROP, CMP, T4F, PTT, CRP, T4T, PT, TSH3 #### [facility] [address] Estimated GFR (Non- Am > 60 [facility] Comment on above: Performed By: #### D IFF CBC, TROP, CMP, T4F, PTT, CRP, T4T, PT, TSH3 #### [address] Globulin (S) [Mass/Vol] 3.1 g/dL Normal [facility] Comment on above: Performed By: #### D IFF CBC, TROP, CMP, T4F, PTT, CRP, T4T, PT, TSH3 #### [address] Glucose [Mass/Vol] 204 mg/dL High 70-100 [facility] Comment on above: Result Comment: [facility] Glucose Reference Range is dependent on time and content of last meal. Glucose of more than 200 mg/dL in a nonstressed, ambulatory subject supports the diagnosis of Diabetes Mellitus. ADA recommended reference range Performed By: #### D IFF CBC, TROP, CMP, T4F, PTT, CRP, T4T, PT, TSH3 #### [address] Potassium [Moles/Vol] 3.5 mmol/L Normal 3.5-5.1 [facility] Comment on above: Performed By: #### D IFF CBC, TROP, CMP, T4F, PTT, CRP, T4T, PT, TSH3 #### [address] Protein [Mass/Vol] 5.7 g/dL Low 6.1-7.9 [facility] Comment on above: Performed By: #### D IFF CBC, TROP, CMP, T4F, PTT, CRP, T4T, PT, TSH3 #### [address] Sodium [Moles/Vol] 135 mmol/L Low 136-146 [facility] Comment on above: Performed By: #### D IFF CBC, TROP, CMP, T4F, PTT, CRP, T4T, PT, TSH3 #### [address] Urea nitrogen [Mass/Vol] 20 mg/dL Normal 9-23 [facility] Comment on above: Performed By: #### D IFF CBC, TROP, CMP, T4F, PTT, CRP, T4T, PT, TSH3 #### [address] D-Dimer High Sensitivityon 0 05-09-2020 D-Dimer High Sensitivity 303 ng/mL High 0-243 [facility] Comment on above: Result Comment: The reference range for D-dimer is <243 ng/mL D-dimer units. D-dimer results must be used in conjunction with a clinical pretest probability (PTP) assessment model for deep vein thrombosis (DVT) and pulmonary embolism (PE). Results <230 ng/mL d-dimer units can be used as a negative predictor in patients with low or moderate probability for DVT/PE. Results above the exclusion threshold of 230 ng/ml D-dimer units for DVT/PE may indicate the need for further diagnostic testing. D-Dimer can be increased in hospitalized patients due to co-morbid conditions. PERFORMED BY: [place] [id number] PATHOLOG[employer] THIERRY CARDOZO M.D. Performed By: #### D IFF CBC, TROP, CMP, T4F, PTT, CRP, T4T, PT, TSH3 #### [address] Diff and CBCon 05-09-2020 Band form neutrophils/100 WBC (Bld) 5 % Normal 0-5 [facility] Comment on above: Performed By: #### D IFF CBC, TROP, CMP, T4F, PTT, CRP, T4T, PT, TSH3 #### [address] Eosinophils/100 WBC (Bld) 1 % Normal 1-3 [facility] Comment on above: Performed By: #### D IFF CBC, TROP, CMP, T4F, PTT, CRP, T4T, PT, TSH3 #### [address] Erythrocyte distribution width (RBC) [Ratio] 14.1 % Normal 11.9-15.3 [facility] Comment on above: Performed By: #### D IFF CBC, TROP, CMP, T4F, PTT, CRP, T4T, PT, TSH3 #### [address] Hematocrit (Bld) [Volume fraction] 37.5 % Normal 34.0-46.4 [facility] Comment on above: Performed By: #### D IFF CBC, TROP, CMP, T4F, PTT, CRP, T4T, PT, TSH3 #### [address] Hemoglobin (Bld) [Mass/Vol] 12.8 g/dL Normal 11.8-15.4 [facility] Comment on above: Performed By: #### D IFF CBC, TROP, CMP, T4F, PTT, CRP, T4T, PT, TSH3 #### [address] Lymphocytes/100 WBC (Bld) 11 % Low 18-42 [facility] Comment on above: Performed By: #### D IFF CBC, TROP, CMP, T4F, PTT, CRP, T4T, PT, TSH3 #### [address] MCH (RBC) [Entitic mass] 30.9 pg Normal 24.7-34.3 [facility] Comment on above: Performed By: #### D IFF CBC, TROP, CMP, T4F, PTT, CRP, T4T, PT, TSH3 #### [address] MCV (RBC) [Entitic vol] 90.3 fL Normal 80-100 [facility] Comment on above: Performed By: #### D IFF CBC, TROP, CMP, T4F, PTT, CRP, T4T, PT, TSH3 #### [address] Mean Corpuscular HGB Conc 34.3 g/dL Normal 32.0-35.0 [facility] Comment on above: Performed By: #### D IFF CBC, TROP, CMP, T4F, PTT, CRP, T4T, PT, TSH3 #### [facility] [address] Metamyelocytes 2 % High 0-0 [facility] Comment on above: Performed By: #### D IFF CBC, TROP, CMP, T4F, PTT, CRP, T4T, PT, TSH3 #### [facility] [address] [place] [address] [place] Monocytes/100 WBC (Bld) 3 % Normal 2-11 [facility] Comment on above: Performed By: #### D IFF CBC, TROP, CMP, T4F, PTT, CRP, T4T, PT, TSH3 #### [facility] [address] Nucleated RBC/100 WBC (Bld) [Ratio] 0.1 % Normal 0-0.5 [facility] Comment on above: Result Comment: PERF ORMED BY: [place] [address] PATHOLOGIST [employer]ERRY CARDOZO M.D. Performed By: #### D IFF CBC, TROP, CMP, T4F, PTT, CRP, T4T, PT, TSH3 #### [address] Platelet Estimate Normal Normal Normal [facility] Comment on above: Performed By: #### D IFF CBC, TROP, CMP, T4F, PTT, CRP, T4T, PT, TSH3 #### [address] Platelet mean volume (Bld) [Entitic vol] 7.5 fL Normal 6.3-10.7 [facility] Comment on above: Performed By: #### D IFF CBC, TROP, CMP, T4F, PTT, CRP, T4T, PT, TSH3 #### [address] Platelet Morphology Normal Normal Normal [facility] Comment on above: Result Comment: PERF ORMED BY: [place] [address] PATHOLOGIST [employer]Y CARDOZO M.D. Performed By: #### D IFF CBC, TROP, CMP, T4F, PTT, CRP, T4T, PT, TSH3 #### [address] Platelets (Bld) [#/Vol] 293 10*3/uL Normal 150-450 [facility] Comment on above: Performed By: #### D IFF CBC, TROP, CMP, T4F, PTT, CRP, T4T, PT, TSH3 #### [address] RBC (Bld) [#/Vol] 4.15 10*6/uL Normal 3.60-5.00 [facility] Comment on above: Performed By: #### D IFF CBC, TROP, CMP, T4F, PTT, CRP, T4T, PT, TSH3 #### [address] RBC morphology finding Nom (Bld) Normal Normal [facility] Comment on above: Performed By: #### D IFF CBC, TROP, CMP, T4F, PTT, CRP, T4T, PT, TSH3 #### [address] Segmented neutrophils/100 WBC (Bld) 78 % High 50-70 [facility] Comment on above: Performed By: #### D IFF CBC, TROP, CMP, T4F, PTT, CRP, T4T, PT, TSH3 #### [address] WBC (Bld) [#/Vol] 10.8 10*3/uL Normal 4.5-11.0 [facility] Comment on above: Performed By: #### D IFF CBC, TROP, CMP, T4F, PTT, CRP, T4T, PT, TSH3 #### [address] Glucose Poct Glucometerson 0 05-09-2020 Glucose [Mass/Vol] 262 mg/dL Normal [facility] Comment on above: Result Comment: [place] Glucose Reference Range is dependent on time and content of last meal. Glucose of more than 200 mg/dL in a nonstressed, ambulatory subject supports the diagnosis of Diabetes Mellitus. PERFORMED BY: [place] [address] PATHOLOGIST [employer]Y CARDOZO M.D. Performed By: #### D IFF CBC, TROP, CMP, T4F, PTT, CRP, T4T, PT, TSH3 #### [address] Commemt1 Glu2: Cleaned Meter [facility] Comment on above: Performed By: #### D IFF CBC, TROP, CMP, T4F, PTT, CRP, T4T, PT, TSH3 #### [address] Commemt2 SLIDING SCALE COVERA [facility] Comment on above: Result Comment: PERF ORMED BY: [place] [address] PATHOLOGIST [employer]Y CARDOZO M.D. Performed By: #### D IFF CBC, TROP, CMP, T4F, PTT, CRP, T4T, PT, TSH3 #### [address] Glucose [Mass/Vol] 282 mg/dL Normal [facility] Comment on above: Result Comment: [facility] Glucose Reference Range is dependent on time and content of last meal. Glucose of more than 200 mg/dL in a nonstressed, ambulatory subject supports the diagnosis of Diabetes Mellitus. Performed By: #### D IFF CBC, TROP, CMP, T4F, PTT, CRP, T4T, PT, TSH3 #### [facility] [address] [place] [address] Commemt1 Glu2: Cleaned Meter [facility] Comment on above: Performed By: #### D IFF CBC, TROP, CMP, T4F, PTT, CRP, T4T, PT, TSH3 #### [facility] [address] Commemt2 SLIDING SCALE COVERA [facility] Comment on above: Result Comment: PERF ORMED BY: [place] [address] PATHOLOGIST [employer]Y CARDOZO M.D. Performed By: #### D IFF CBC, TROP, CMP, T4F, PTT, CRP, T4T, PT, TSH3 #### [address] Glucose [Mass/Vol] 283 mg/dL Normal [facility] Comment on above: Result Comment: [place] om Glucose Reference Range is dependent on time and content of last meal. Glucose of more than 200 mg/dL in a nonstressed, ambulatory subject supports the diagnosis of Diabetes Mellitus. Performed By: #### D IFF CBC, TROP, CMP, T4F, PTT, CRP, T4T, PT, TSH3 #### [address] Commemt1 Glu2: Cleaned Meter [facility] Comment on above: Performed By: #### D IFF CBC, TROP, CMP, T4F, PTT, CRP, T4T, PT, TSH3 #### [address] Commemt2 SLIDING SCALE COVERA [facility] Comment on above: Result Comment: PERF ORMED BY: [place] [address] PATHOLOGIST [employer]Y CARDOZO M.D. Performed By: #### D IFF CBC, TROP, CMP, T4F, PTT, CRP, T4T, PT, TSH3 #### [address] Glucose [Mass/Vol] 159 mg/dL [facility] Comment on above: Result Comment: [place] om Glucose Reference Range is dependent on time and content of last meal. Glucose of more than 200 mg/dL in a nonstressed, ambulatory subject supports the diagnosis of Diabetes Mellitus. Performed By: #### D IFF CBC, TROP, CMP, T4F, PTT, CRP, T4T, PT, TSH3 #### [facility] [address] C-Reactive Proteinon 021 C-Reactive Protein 4.8 mg/dL High 0.0-1.0 [facility] Comment on above: Result Comment: PERF ORMED BY: [place] [address] PATHOLOGIST [employer]Y CARDOZO M.D. Performed By: #### D IFF CBC, TROP, CMP, T4F, PTT, CRP, T4T, PT, TSH3 #### [address] Comprehensive Metabolic Pane brandee 05-08-2020 Albumin [Mass/Vol] 2.6 g/dL Low 3.2-5.5 [facility] Comment on above: Performed By: #### D IFF CBC, TROP, CMP, T4F, PTT, CRP, T4T, PT, TSH3 #### [address] Albumin/Globulin [Mass ratio] 0.8 {ratio} Normal [facility] Comment on above: Performed By: #### D IFF CBC, TROP, CMP, T4F, PTT, CRP, T4T, PT, TSH3 #### [facility] [address] [place] [address] ALP [Catalytic activity/Vol] 52 U/L Normal 32-92 [facility] Comment on above: Performed By: #### D IFF CBC, TROP, CMP, T4F, PTT, CRP, T4T, PT, TSH3 #### [facility] [address] [place] [address] [place] ALT [Catalytic activity/Vol] 40 U/L Normal 10-60 [facility] Comment on above: Performed By: #### D IFF CBC, TROP, CMP, T4F, PTT, CRP, T4T, PT, TSH3 #### [place] [address] [place] AST [Catalytic activity/Vol] 25 U/L Normal 10-42 [facility] Comment on above: Performed By: #### D IFF CBC, TROP, CMP, T4F, PTT, CRP, T4T, PT, TSH3 #### [facility] [address] Bilirubin [Mass/Vol] 0.9 mg/dL Normal 0.3-1.2 [facility] Comment on above: Performed By: #### D IFF CBC, TROP, CMP, T4F, PTT, CRP, T4T, PT, TSH3 #### [facility] [address] Calcium [Mass/Vol] 8.5 mg/dL Normal 8.2-10.2 [facility] Comment on above: Performed By: #### D IFF CBC, TROP, CMP, T4F, PTT, CRP, T4T, PT, TSH3 #### [facility] [address] Chloride [Moles/Vol] 93 mmol/L Low 95-114 [facility] Comment on above: Performed By: #### D IFF CBC, TROP, CMP, T4F, PTT, CRP, T4T, PT, TSH3 #### [facility] [address] [place] [address] CO2 [Moles/Vol] 35.6 mmol/L High 22.0-30.0 [facility] Comment on above: Performed By: #### D IFF CBC, TROP, CMP, T4F, PTT, CRP, T4T, PT, TSH3 #### [facility] [address] [place] [address] Creatinine [Mass/Vol] 0.59 mg/dL Normal 0.44-1.03 [facility] Comment on above: Performed By: #### D IFF CBC, TROP, CMP, T4F, PTT, CRP, T4T, PT, TSH3 #### [facility] [address] [place] [address] Creatinine Clr Calc Pharmacy 136.41 Normal [facility] Comment on above: Performed By: #### D IFF CBC, TROP, CMP, T4F, PTT, CRP, T4T, PT, TSH3 #### [facility] [address] Estimated GFR ( Jasmin > 60 [facility] Comment on above: Result Comment: GFR estimated reference range: According to KDOQI guidelines, <60 ml/min/1.73m2 is sufficient to diagnose a patient with chronic kidney disease. Performed By: #### D IFF CBC, TROP, CMP, T4F, PTT, CRP, T4T, PT, TSH3 #### [facility] [address] Estimated GFR (Non- Am > 60 Normal [facility] Comment on above: Performed By: #### D IFF CBC, TROP, CMP, T4F, PTT, CRP, T4T, PT, TSH3 #### [facility] [address] Globulin (S) [Mass/Vol] 3.3 g/dL Normal [facility] Comment on above: Performed By: #### D IFF CBC, TROP, CMP, T4F, PTT, CRP, T4T, PT, TSH3 #### [facility] [address] Glucose [Mass/Vol] 148 mg/dL High 70-100 [facility] Comment on above: Result Comment: [place] Glucose Reference Range is dependent on time and content of last meal. Glucose of more than 200 mg/dL in a nonstressed, ambulatory subject supports the diagnosis of Diabetes Mellitus. ADA recommended reference range Performed By: #### D IFF CBC, TROP, CMP, T4F, PTT, CRP, T4T, PT, TSH3 #### [facility] [address] Potassium [Moles/Vol] 3.6 mmol/L Normal 3.5-5.1 [facility] Comment on above: Performed By: #### D IFF CBC, TROP, CMP, T4F, PTT, CRP, T4T, PT, TSH3 #### [facility] [address] Protein [Mass/Vol] 5.9 g/dL Low 6.1-7.9 [facility] Comment on above: Performed By: #### D IFF CBC, TROP, CMP, T4F, PTT, CRP, T4T, PT, TSH3 #### [facility] [address] Sodium [Moles/Vol] 138 mmol/L Normal 136-146 [facility] Comment on above: Performed By: #### D IFF CBC, TROP, CMP, T4F, PTT, CRP, T4T, PT, TSH3 #### [facility] [address] Urea nitrogen [Mass/Vol] 24 mg/dL High 9-23 [facility] Comment on above: Performed By: #### D IFF CBC, TROP, CMP, T4F, PTT, CRP, T4T, PT, TSH3 #### [address] D-Dimer High Sensitivityon 0 05-08-2020 D-Dimer High Sensitivity 230 ng/mL Normal 0-243 [facility] Comment on above: Result Comment: The reference range for D-dimer is <243 ng/mL D-dimer units. D-dimer results must be used in conjunction with a clinical pretest probability (PTP) assessment model for deep vein thrombosis (DVT) and pulmonary embolism (PE). Results <230 ng/mL d-dimer units can be used as a negative predictor in patients with low or moderate probability for DVT/PE. Results above the exclusion threshold of 230 ng/ml D-dimer units for DVT/PE may indicate the need for further diagnostic testing. D-Dimer can be increased in hospitalized patients due to co-morbid conditions. PERFORMED BY: [place] [address] PATHOLOGIST [employer]Y CARDOZO M.D. Performed By: #### D IFF CBC, TROP, CMP, T4F, PTT, CRP, T4T, PT, TSH3 #### [address] Diff and CBCon 05-08-2020 Band form neutrophils/100 WBC (Bld) 3 % Normal 0-5 [facility] Comment on above: Performed By: #### D IFF CBC, TROP, CMP, T4F, PTT, CRP, T4T, PT, TSH3 #### [address] Eosinophils/100 WBC (Bld) 1 % Normal 1-3 [facility] Comment on above: Performed By: #### D IFF CBC, TROP, CMP, T4F, PTT, CRP, T4T, PT, TSH3 #### [address] Erythrocyte distribution width (RBC) [Ratio] 14.2 % Normal 11.9-15.3 [facility] Comment on above: Performed By: #### D IFF CBC, TROP, CMP, T4F, PTT, CRP, T4T, PT, TSH3 #### [address] Hematocrit (Bld) [Volume fraction] 38.8 % Normal 34.0-46.4 [facility] Comment on above: Performed By: #### D IFF CBC, TROP, CMP, T4F, PTT, CRP, T4T, PT, TSH3 #### [address] Hemoglobin (Bld) [Mass/Vol] 13.2 g/dL Normal 11.8-15.4 [facility] Comment on above: Performed By: #### D IFF CBC, TROP, CMP, T4F, PTT, CRP, T4T, PT, TSH3 #### [address] Lymphocytes/100 WBC (Bld) 13 % Low 18-42 [facility] Comment on above: Performed By: #### D IFF CBC, TROP, CMP, T4F, PTT, CRP, T4T, PT, TSH3 #### [address] MCH (RBC) [Entitic mass] 30.9 pg Normal 24.7-34.3 [facility] Comment on above: Performed By: #### D IFF CBC, TROP, CMP, T4F, PTT, CRP, T4T, PT, TSH3 #### [facility] [address] MCV (RBC) [Entitic vol] 91.1 fL Normal 80-100 [facility] Comment on above: Performed By: #### D IFF CBC, TROP, CMP, T4F, PTT, CRP, T4T, PT, TSH3 #### [address] Mean Corpuscular HGB Conc 33.9 g/dL Normal 32.0-35.0 [facility] Comment on above: Performed By: #### D IFF CBC, TROP, CMP, T4F, PTT, CRP, T4T, PT, TSH3 #### [address] Metamyelocytes 3 % High 0-0 [facility] Comment on above: Performed By: #### D IFF CBC, TROP, CMP, T4F, PTT, CRP, T4T, PT, TSH3 #### [address] Monocytes/100 WBC (Bld) 4 % Normal 2-11 [facility] Comment on above: Performed By: #### D IFF CBC, TROP, CMP, T4F, PTT, CRP, T4T, PT, TSH3 #### [address] Nucleated RBC/100 WBC (Bld) [Ratio] 0.1 % Normal 0-0.5 [facility] Comment on above: Result Comment: PERF ORMED BY: [place] [address] PATHOLOGIST [employer]Y CARDOZO M.D. Performed By: #### D IFF CBC, TROP, CMP, T4F, PTT, CRP, T4T, PT, TSH3 #### [address] Platelet Estimate Normal Normal Normal [facility] Comment on above: Performed By: #### D IFF CBC, TROP, CMP, T4F, PTT, CRP, T4T, PT, TSH3 #### [facility] [address] Platelet mean volume (Bld) [Entitic vol] 7.4 fL Normal 6.3-10.7 [facility] Comment on above: Performed By: #### D IFF CBC, TROP, CMP, T4F, PTT, CRP, T4T, PT, TSH3 #### [facility] [address] Platelet Morphology Normal Normal Normal [facility] Comment on above: Result Comment: PERF ORMED BY: [place] [address] PATHOLOGIST [employer]Y CARDOZO M.D. Performed By: #### D IFF CBC, TROP, CMP, T4F, PTT, CRP, T4T, PT, TSH3 #### [address] Platelets (Bld) [#/Vol] 283 10*3/uL Normal 150-450 [facility] Comment on above: Performed By: #### D IFF CBC, TROP, CMP, T4F, PTT, CRP, T4T, PT, TSH3 #### [address] Poikilocytosis Slight Normal [facility] Comment on above: Performed By: #### D IFF CBC, TROP, CMP, T4F, PTT, CRP, T4T, PT, TSH3 #### [address] RBC (Bld) [#/Vol] 4.26 10*6/uL Normal 3.60-5.00 [facility] Comment on above: Performed By: #### D IFF CBC, TROP, CMP, T4F, PTT, CRP, T4T, PT, TSH3 #### [address] Reactive Lymphocytes 1 % Normal 0-12 [facility] Comment on above: Performed By: #### D IFF CBC, TROP, CMP, T4F, PTT, CRP, T4T, PT, TSH3 #### [facility] [address] Segmented neutrophils/100 WBC (Bld) 75 % High 50-70 [facility] Comment on above: Performed By: #### D IFF CBC, TROP, CMP, T4F, PTT, CRP, T4T, PT, TSH3 #### [facility] [address] WBC (Bld) [#/Vol] 10.3 10*3/uL Normal 4.5-11.0 [facility] Comment on above: Performed By: #### D IFF CBC, TROP, CMP, T4F, PTT, CRP, T4T, PT, TSH3 #### [facility] [address] Glucose Poct Glucometerson 0 05-08-2020 Glucose [Mass/Vol] 254 mg/dL Normal [facility] Comment on above: Result Comment: [place] om Glucose Reference Range is dependent on time and content of last meal. Glucose of more than 200 mg/dL in a nonstressed, ambulatory subject supports the diagnosis of Diabetes Mellitus. PERFORMED BY: [place] [address] PATHOLOGIST [employer]Y CARDOZO M.D. Performed By: #### D IFF CBC, TROP, CMP, T4F, PTT, CRP, T4T, PT, TSH3 #### [address] Commemt1 Glu2: Cleaned Meter Normal [facility] Comment on above: Result Comment: PERF ORMED BY: [place] [address] PATHOLOGIST [employer]Y CARDOZO M.D. Performed By: #### D IFF CBC, TROP, CMP, T4F, PTT, CRP, T4T, PT, TSH3 #### [address] Glucose [Mass/Vol] 285 mg/dL Normal [facility] Comment on above: Result Comment: [place] om Glucose Reference Range is dependent on time and content of last meal. Glucose of more than 200 mg/dL in a nonstressed, ambulatory subject supports the diagnosis of Diabetes Mellitus. Performed By: #### D IFF CBC, TROP, CMP, T4F, PTT, CRP, T4T, PT, TSH3 #### [address] Commemt1 Glu2: Cleaned Meter [facility] Comment on above: Result Comment: PERF ORMED BY: [place] [address] PATHOLOGIST [employer]Y CARDOZO M.D. Performed By: #### D IFF CBC, TROP, CMP, T4F, PTT, CRP, T4T, PT, TSH3 #### [address] Glucose [Mass/Vol] 256 mg/dL Normal [facility] Comment on above: Result Comment: [place] om Glucose Reference Range is dependent on time and content of last meal. Glucose of more than 200 mg/dL in a nonstressed, ambulatory subject supports the diagnosis of Diabetes Mellitus. Performed By: #### D IFF CBC, TROP, CMP, T4F, PTT, CRP, T4T, PT, TSH3 #### [address] Commemt1 Glu2: Cleaned Meter [facility] Comment on above: Result Comment: PERF ORMED BY: [place] [address] PATHOLOGIST [employer]Y CARDOZO M.D. Performed By: #### D IFF CBC, TROP, CMP, T4F, PTT, CRP, T4T, PT, TSH3 #### [address] Glucose [Mass/Vol] 123 mg/dL Normal [facility] Comment on above: Result Comment: [place] om Glucose Reference Range is dependent on time and content of last meal. Glucose of more than 200 mg/dL in a nonstressed, ambulatory subject supports the diagnosis of Diabetes Mellitus. Performed By: #### D IFF CBC, TROP, CMP, T4F, PTT, CRP, T4T, PT, TSH3 #### [facility] [address] C-Reactive Proteinon 021 C-Reactive Protein 3.0 mg/dL High 0.0-1.0 [facility] Comment on above: Result Comment: PERF ORMED BY: [place] [address] PATHOLOGIST [employer]Y CARDOZO M.D. Performed By: #### D IFF CBC, TROP, CMP, T4F, PTT, CRP, T4T, PT, TSH3 #### [address] Comprehensive Metabolic Pane brandee 05-07-2020 Albumin [Mass/Vol] 2.4 g/dL Low 3.2-5.5 [facility] Comment on above: Performed By: #### D IFF CBC, TROP, CMP, T4F, PTT, CRP, T4T, PT, TSH3 #### [address] Albumin/Globulin [Mass ratio] 0.8 {ratio} Normal [facility] Comment on above: Performed By: #### D IFF CBC, TROP, CMP, T4F, PTT, CRP, T4T, PT, TSH3 #### [facility] [address] [place] [address] [place] ALP [Catalytic activity/Vol] 54 U/L Normal 32-92 [facility] Comment on above: Performed By: #### D IFF CBC, TROP, CMP, T4F, PTT, CRP, T4T, PT, TSH3 #### [place] [address] [place] ALT [Catalytic activity/Vol] 41 U/L Normal 10-60 [facility] Comment on above: Performed By: #### D IFF CBC, TROP, CMP, T4F, PTT, CRP, T4T, PT, TSH3 #### [place] [address] [place] AST [Catalytic activity/Vol] 27 U/L Normal 10-42 [facility] Comment on above: Performed By: #### D IFF CBC, TROP, CMP, T4F, PTT, CRP, T4T, PT, TSH3 #### [facility] [address] Bilirubin [Mass/Vol] 0.9 mg/dL Normal 0.3-1.2 [facility] Comment on above: Performed By: #### D IFF CBC, TROP, CMP, T4F, PTT, CRP, T4T, PT, TSH3 #### [facility] [address] Calcium [Mass/Vol] 8.4 mg/dL Normal 8.2-10.2 [facility] Comment on above: Performed By: #### D IFF CBC, TROP, CMP, T4F, PTT, CRP, T4T, PT, TSH3 #### [facility] [address] Chloride [Moles/Vol] 95 mmol/L Normal 95-114 [facility] Comment on above: Performed By: #### D IFF CBC, TROP, CMP, T4F, PTT, CRP, T4T, PT, TSH3 #### [facility] [address] CO2 [Moles/Vol] 35.7 mmol/L High 22.0-30.0 [facility] Comment on above: Performed By: #### D IFF CBC, TROP, CMP, T4F, PTT, CRP, T4T, PT, TSH3 #### [facility] [address] Creatinine [Mass/Vol] 0.67 mg/dL Normal 0.44-1.03 [facility] Comment on above: Performed By: #### D IFF CBC, TROP, CMP, T4F, PTT, CRP, T4T, PT, TSH3 #### [facility] [address] Creatinine Clr Calc Pharmacy 119.64 Normal [facility] Comment on above: Performed By: #### D IFF CBC, TROP, CMP, T4F, PTT, CRP, T4T, PT, TSH3 #### [facility] [address] Estimated GFR ( Jasmin > 60 [facility] Comment on above: Result Comment: GFR estimated reference range: According to KDOQI guidelines, <60 ml/min/1.73m2 is sufficient to diagnose a patient with chronic kidney disease. Performed By: #### D IFF CBC, TROP, CMP, T4F, PTT, CRP, T4T, PT, TSH3 #### [facility] [address] Estimated GFR (Non- Am > 60 [facility] Comment on above: Performed By: #### D IFF CBC, TROP, CMP, T4F, PTT, CRP, T4T, PT, TSH3 #### [facility] [address] Globulin (S) [Mass/Vol] 3.1 g/dL Normal [facility] Comment on above: Performed By: #### D IFF CBC, TROP, CMP, T4F, PTT, CRP, T4T, PT, TSH3 #### [address] Glucose [Mass/Vol] 169 mg/dL High 70-100 [facility] Comment on above: Result Comment: [place] Glucose Reference Range is dependent on time and content of last meal. Glucose of more than 200 mg/dL in a nonstressed, ambulatory subject supports the diagnosis of Diabetes Mellitus. ADA recommended reference range Performed By: #### D IFF CBC, TROP, CMP, T4F, PTT, CRP, T4T, PT, TSH3 #### [address] Potassium [Moles/Vol] 3.7 mmol/L Normal 3.5-5.1 [facility] Comment on above: Performed By: #### D IFF CBC, TROP, CMP, T4F, PTT, CRP, T4T, PT, TSH3 #### [address] Protein [Mass/Vol] 5.5 g/dL Low 6.1-7.9 [facility] Comment on above: Performed By: #### D IFF CBC, TROP, CMP, T4F, PTT, CRP, T4T, PT, TSH3 #### [facility] [address] Sodium [Moles/Vol] 140 mmol/L Normal 136-146 [facility] Comment on above: Performed By: #### D IFF CBC, TROP, CMP, T4F, PTT, CRP, T4T, PT, TSH3 #### [facility] [address] Urea nitrogen [Mass/Vol] 27 mg/dL High 9-23 [facility] Comment on above: Performed By: #### D IFF CBC, TROP, CMP, T4F, PTT, CRP, T4T, PT, TSH3 #### [address] D-Dimer High Sensitivityon 0 05-07-2020 D-Dimer High Sensitivity 210 ng/mL Normal 0-243 [facility] Comment on above: Result Comment: The reference range for D-dimer is <243 ng/mL D-dimer units. D-dimer results must be used in conjunction with a clinical pretest probability (PTP) assessment model for deep vein thrombosis (DVT) and pulmonary embolism (PE). Results <230 ng/mL d-dimer units can be used as a negative predictor in patients with low or moderate probability for DVT/PE. Results above the exclusion threshold of 230 ng/ml D-dimer units for DVT/PE may indicate the need for further diagnostic testing. D-Dimer can be increased in hospitalized patients due to co-morbid conditions. PERFORMED BY: [place] [address] PATHOLOGIST [employer]Y CARDOZO M.D. Performed By: #### D IFF CBC, TROP, CMP, T4F, PTT, CRP, T4T, PT, TSH3 #### [address] Diff and CBCon 05-07-2020 Band form neutrophils/100 WBC (Bld) 1 % Normal 0-5 [facility] Comment on above: Performed By: #### D IFF CBC, TROP, CMP, T4F, PTT, CRP, T4T, PT, TSH3 #### [facility] [address] Erythrocyte distribution width (RBC) [Ratio] 14.0 % Normal 11.9-15.3 [facility] Comment on above: Performed By: #### D IFF CBC, TROP, CMP, T4F, PTT, CRP, T4T, PT, TSH3 #### [facility] [address] Hematocrit (Bld) [Volume fraction] 36.5 % Normal 34.0-46.4 [facility] Comment on above: Performed By: #### D IFF CBC, TROP, CMP, T4F, PTT, CRP, T4T, PT, TSH3 #### [facility] [address] Hemoglobin (Bld) [Mass/Vol] 12.4 g/dL Normal 11.8-15.4 [facility] Comment on above: Performed By: #### D IFF CBC, TROP, CMP, T4F, PTT, CRP, T4T, PT, TSH3 #### [address] Large Platelets Slight Normal [facility] Comment on above: Result Comment: PERF ORMED BY: [place] [address] PATHOLOGIST [employer] CARDOZO M.D. Performed By: #### D IFF CBC, TROP, CMP, T4F, PTT, CRP, T4T, PT, TSH3 #### [address] Lymphocytes/100 WBC (Bld) 17 % Low 18-42 [facility] Comment on above: Performed By: #### D IFF CBC, TROP, CMP, T4F, PTT, CRP, T4T, PT, TSH3 #### [address] MCH (RBC) [Entitic mass] 30.9 pg Normal 24.7-34.3 [facility] Comment on above: Performed By: #### D IFF CBC, TROP, CMP, T4F, PTT, CRP, T4T, PT, TSH3 #### [address] MCV (RBC) [Entitic vol] 90.9 fL Normal 80-100 [facility] Comment on above: Performed By: #### D IFF CBC, TROP, CMP, T4F, PTT, CRP, T4T, PT, TSH3 #### [address] Mean Corpuscular HGB Conc 34.0 g/dL Normal 32.0-35.0 [facility] Comment on above: Performed By: #### D IFF CBC, TROP, CMP, T4F, PTT, CRP, T4T, PT, TSH3 #### [address] Metamyelocytes 3 % High 0-0 [facility] Comment on above: Performed By: #### D IFF CBC, TROP, CMP, T4F, PTT, CRP, T4T, PT, TSH3 #### [address] Monocytes/100 WBC (Bld) 4 % Normal 2-11 [facility] Comment on above: Performed By: #### D IFF CBC, TROP, CMP, T4F, PTT, CRP, T4T, PT, TSH3 #### [address] Nucleated RBC/100 WBC (Bld) [Ratio] 0.1 % Normal 0-0.5 [facility] Comment on above: Result Comment: PERF ORMED BY: [place] [address] PATHOLOGIST [employer] C[employer]OZO M.D. Performed By: #### D IFF CBC, TROP, CMP, T4F, PTT, CRP, T4T, PT, TSH3 #### [address] Platelet Estimate Normal Normal Normal [facility] Comment on above: Performed By: #### D IFF CBC, TROP, CMP, T4F, PTT, CRP, T4T, PT, TSH3 #### [facility] [address] Platelet mean volume (Bld) [Entitic vol] 7.6 fL Normal 6.3-10.7 [facility] Comment on above: Performed By: #### D IFF CBC, TROP, CMP, T4F, PTT, CRP, T4T, PT, TSH3 #### [facility] [address] Platelets (Bld) [#/Vol] 296 10*3/uL Normal 150-450 [facility] Comment on above: Performed By: #### D IFF CBC, TROP, CMP, T4F, PTT, CRP, T4T, PT, TSH3 #### [facility] [address] RBC (Bld) [#/Vol] 4.02 10*6/uL Normal 3.60-5.00 [facility] Comment on above: Performed By: #### D IFF CBC, TROP, CMP, T4F, PTT, CRP, T4T, PT, TSH3 #### [facility] [address] RBC morphology finding Nom (Bld) Normal Normal [facility] Comment on above: Performed By: #### D IFF CBC, TROP, CMP, T4F, PTT, CRP, T4T, PT, TSH3 #### [facility] [address] Segmented neutrophils/100 WBC (Bld) 75 % High 50-70 [facility] Comment on above: Performed By: #### D IFF CBC, TROP, CMP, T4F, PTT, CRP, T4T, PT, TSH3 #### [facility] [address] WBC (Bld) [#/Vol] 9.8 10*3/uL Normal 4.5-11.0 [facility] Comment on above: Performed By: #### D IFF CBC, TROP, CMP, T4F, PTT, CRP, T4T, PT, TSH3 #### [facility] [address] [place] [id number] [facility] Glucose Poct Glucometerson 0 05-07-2020 Commemt1 Glu2: Cleaned Meter [facility] Comment on above: Result Comment: PERF ORMED BY: [place] [address] PATHOLOGIST [employer]Y CARDOZO M.D. Performed By: #### D IFF CBC, TROP, CMP, T4F, PTT, CRP, T4T, PT, TSH3 #### [address] Glucose [Mass/Vol] 291 mg/dL Normal [facility] Comment on above: Result Comment: [place] om Glucose Reference Range is dependent on time and content of last meal. Glucose of more than 200 mg/dL in a nonstressed, ambulatory subject supports the diagnosis of Diabetes Mellitus. Performed By: #### D IFF CBC, TROP, CMP, T4F, PTT, CRP, T4T, PT, TSH3 #### [address] Commemt1 Glu2: Cleaned Meter [facility] Comment on above: Result Comment: PERF ORMED BY: [place] [address] PATHOLOGIST [employer] CARDOZO M.D. Performed By: #### D IFF CBC, TROP, CMP, T4F, PTT, CRP, T4T, PT, TSH3 #### [place] [id number] [place] Glucose [Mass/Vol] 284 mg/dL Normal [facility] Comment on above: Result Comment: [place] om Glucose Reference Range is dependent on time and content of last meal. Glucose of more than 200 mg/dL in a nonstressed, ambulatory subject supports the diagnosis of Diabetes Mellitus. Performed By: #### D IFF CBC, TROP, CMP, T4F, PTT, CRP, T4T, PT, TSH3 #### [address] Commemt1 Glu2: Cleaned Meter Normal [facility] Comment on above: Result Comment: PERF ORMED BY: [place] [address] PATHOLOGIST [employer] CARDOZO M.D. Performed By: #### D IFF CBC, TROP, CMP, T4F, PTT, CRP, T4T, PT, TSH3 #### [address] Glucose [Mass/Vol] 236 mg/dL Normal [facility] Comment on above: Result Comment: [place] om Glucose Reference Range is dependent on time and content of last meal. Glucose of more than 200 mg/dL in a nonstressed, ambulatory subject supports the diagnosis of Diabetes Mellitus. Performed By: #### D IFF CBC, TROP, CMP, T4F, PTT, CRP, T4T, PT, TSH3 #### [address] Commemt1 Glu2: Cleaned Meter [facility] Comment on above: Result Comment: PERF ORMED BY: [place] [address] PATHOLOGIST [employer] CARDOZO M.D. Performed By: #### D IFF CBC, TROP, CMP, T4F, PTT, CRP, T4T, PT, TSH3 #### [address] Glucose [Mass/Vol] 139 mg/dL Normal [facility] Comment on above: Result Comment: [place] om Glucose Reference Range is dependent on time and content of last meal. Glucose of more than 200 mg/dL in a nonstressed, ambulatory subject supports the diagnosis of Diabetes Mellitus. Performed By: #### D IFF CBC, TROP, CMP, T4F, PTT, CRP, T4T, PT, TSH3 #### [address] C-Reactive Proteinon 05-06-2 021 C-Reactive Protein 3.0 mg/dL High 0.0-1.0 [facility] Comment on above: Result Comment: PERF ORMED BY: [place] [address] PATHOLOGIST [employer] CARDOZO M.D. Performed By: #### D IFF CBC, TROP, CMP, T4F, PTT, CRP, T4T, PT, TSH3 #### [facility] [address] [place] [address] Comprehensive Metabolic Pane brandee 05-06-2020 Albumin [Mass/Vol] 2.5 g/dL Low 3.2-5.5 [facility] Comment on above: Performed By: #### D IFF CBC, TROP, CMP, T4F, PTT, CRP, T4T, PT, TSH3 #### [address] Albumin/Globulin [Mass ratio] 0.8 {ratio} Normal [facility] Comment on above: Performed By: #### D IFF CBC, TROP, CMP, T4F, PTT, CRP, T4T, PT, TSH3 #### [place] [address] [place] ALP [Catalytic activity/Vol] 53 U/L Normal 32-92 [facility] Comment on above: Performed By: #### D IFF CBC, TROP, CMP, T4F, PTT, CRP, T4T, PT, TSH3 #### [facility] [address] [place] [address] [place] ALT [Catalytic activity/Vol] 52 U/L Normal 10-60 [facility] Comment on above: Performed By: #### D IFF CBC, TROP, CMP, T4F, PTT, CRP, T4T, PT, TSH3 #### [place] [address] [place] AST [Catalytic activity/Vol] 27 U/L Normal 10-42 [facility] Comment on above: Performed By: #### D IFF CBC, TROP, CMP, T4F, PTT, CRP, T4T, PT, TSH3 #### [place] [address] [place] Bilirubin [Mass/Vol] 0.8 mg/dL Normal 0.3-1.2 [facility] Comment on above: Performed By: #### D IFF CBC, TROP, CMP, T4F, PTT, CRP, T4T, PT, TSH3 #### [facility] [address] Calcium [Mass/Vol] 8.7 mg/dL Normal 8.2-10.2 [facility] Comment on above: Performed By: #### D IFF CBC, TROP, CMP, T4F, PTT, CRP, T4T, PT, TSH3 #### [facility] [address] Chloride [Moles/Vol] 95 mmol/L Normal 95-114 [facility] Comment on above: Performed By: #### D IFF CBC, TROP, CMP, T4F, PTT, CRP, T4T, PT, TSH3 #### [facility] [address] CO2 [Moles/Vol] 35.1 mmol/L High 22.0-30.0 [facility] Comment on above: Performed By: #### D IFF CBC, TROP, CMP, T4F, PTT, CRP, T4T, PT, TSH3 #### [facility] [address] Creatinine [Mass/Vol] 0.62 mg/dL Normal 0.44-1.03 [facility] Comment on above: Performed By: #### D IFF CBC, TROP, CMP, T4F, PTT, CRP, T4T, PT, TSH3 #### [facility] [address] Creatinine Clr Calc Pharmacy 129.29 [facility] Comment on above: Performed By: #### D IFF CBC, TROP, CMP, T4F, PTT, CRP, T4T, PT, TSH3 #### [facility] [address] Estimated GFR ( Jasmin > 60 Normal [facility] Comment on above: Result Comment: GFR estimated reference range: According to KDOQI guidelines, <60 ml/min/1.73m2 is sufficient to diagnose a patient with chronic kidney disease. Performed By: #### D IFF CBC, TROP, CMP, T4F, PTT, CRP, T4T, PT, TSH3 #### [facility] [address] Estimated GFR (Non- Am > 60 Normal [facility] Comment on above: Performed By: #### D IFF CBC, TROP, CMP, T4F, PTT, CRP, T4T, PT, TSH3 #### [facility] [address] Globulin (S) [Mass/Vol] 3.3 g/dL Normal [facility] Comment on above: Performed By: #### D IFF CBC, TROP, CMP, T4F, PTT, CRP, T4T, PT, TSH3 #### [address] Glucose [Mass/Vol] 164 mg/dL High 70-100 [facility] Comment on above: Result Comment: [facility] Glucose Reference Range is dependent on time and content of last meal. Glucose of more than 200 mg/dL in a nonstressed, ambulatory subject supports the diagnosis of Diabetes Mellitus. ADA recommended reference range Performed By: #### D IFF CBC, TROP, CMP, T4F, PTT, CRP, T4T, PT, TSH3 #### [address] Potassium [Moles/Vol] 3.8 mmol/L Normal 3.5-5.1 [facility] Comment on above: Performed By: #### D IFF CBC, TROP, CMP, T4F, PTT, CRP, T4T, PT, TSH3 #### [address] Protein [Mass/Vol] 5.8 g/dL Low 6.1-7.9 [facility] Comment on above: Performed By: #### D IFF CBC, TROP, CMP, T4F, PTT, CRP, T4T, PT, TSH3 #### [address] [address] [place] Sodium [Moles/Vol] 141 mmol/L Normal 136-146 [facility] Comment on above: Performed By: #### D IFF CBC, TROP, CMP, T4F, PTT, CRP, T4T, PT, TSH3 #### [address] Urea nitrogen [Mass/Vol] 24 mg/dL High 9-23 [facility] Comment on above: Performed By: #### D IFF CBC, TROP, CMP, T4F, PTT, CRP, T4T, PT, TSH3 #### [address] D-Dimer High Sensitivityon 0 05-06-2020 D-Dimer High Sensitivity < 200 Normal 0-243 [facility] Comment on above: Result Comment: The reference range for D-dimer is <243 ng/mL D-dimer units. D-dimer results must be used in conjunction with a clinical pretest probability (PTP) assessment model for deep vein thrombosis (DVT) and pulmonary embolism (PE). Results <230 ng/mL d-dimer units can be used as a negative predictor in patients with low or moderate probability for DVT/PE. Results above the exclusion threshold of 230 ng/ml D-dimer units for DVT/PE may indicate the need for further diagnostic testing. D-Dimer can be increased in hospitalized patients due to co-morbid conditions. PERFORMED BY: [place] [address] PATHOLOGIST [employer] CARDOZO M.D. Performed By: #### D IFF CBC, TROP, CMP, T4F, PTT, CRP, T4T, PT, TSH3 #### [address] Diff and CBCon 05-06-2020 Erythrocyte distribution width (RBC) [Ratio] 14.1 % Normal 11.9-15.3 [facility] Comment on above: Performed By: #### D IFF CBC, TROP, CMP, T4F, PTT, CRP, T4T, PT, TSH3 #### [address] Hematocrit (Bld) [Volume fraction] 38.2 % Normal 34.0-46.4 [facility] Comment on above: Performed By: #### D IFF CBC, TROP, CMP, T4F, PTT, CRP, T4T, PT, TSH3 #### [facility] [address] Hemoglobin (Bld) [Mass/Vol] 12.6 g/dL Normal 11.8-15.4 [facility] Comment on above: Performed By: #### D IFF CBC, TROP, CMP, T4F, PTT, CRP, T4T, PT, TSH3 #### [address] Lymphocytes/100 WBC (Bld) 12 % Low 18-42 [facility] Comment on above: Performed By: #### D IFF CBC, TROP, CMP, T4F, PTT, CRP, T4T, PT, TSH3 #### [address] MCH (RBC) [Entitic mass] 30.3 pg Normal 24.7-34.3 [facility] Comment on above: Performed By: #### D IFF CBC, TROP, CMP, T4F, PTT, CRP, T4T, PT, TSH3 #### [address] MCV (RBC) [Entitic vol] 91.7 fL Normal 80-100 [facility] Comment on above: Performed By: #### D IFF CBC, TROP, CMP, T4F, PTT, CRP, T4T, PT, TSH3 #### [address] Mean Corpuscular HGB Conc 33.1 g/dL Normal 32.0-35.0 [facility] Comment on above: Performed By: #### D IFF CBC, TROP, CMP, T4F, PTT, CRP, T4T, PT, TSH3 #### [address] Metamyelocytes 3 % High 0-0 [facility] Comment on above: Performed By: #### D IFF CBC, TROP, CMP, T4F, PTT, CRP, T4T, PT, TSH3 #### [address] Monocytes/100 WBC (Bld) 4 % Normal 2-11 [facility] Comment on above: Performed By: #### D IFF CBC, TROP, CMP, T4F, PTT, CRP, T4T, PT, TSH3 #### [address] Nucleated RBC/100 WBC (Bld) [Ratio] 0.3 % Normal 0-0.5 [facility] Comment on above: Result Comment: PERF ORMED BY: [place] [address] PATHOLOGIST [employer]OZO M.D. Performed By: #### D IFF CBC, TROP, CMP, T4F, PTT, CRP, T4T, PT, TSH3 #### [address] Platelet Estimate Normal Normal Normal [facility] Comment on above: Performed By: #### D IFF CBC, TROP, CMP, T4F, PTT, CRP, T4T, PT, TSH3 #### [address] Platelet mean volume (Bld) [Entitic vol] 7.5 fL Normal 6.3-10.7 [facility] Comment on above: Performed By: #### D IFF CBC, TROP, CMP, T4F, PTT, CRP, T4T, PT, TSH3 #### [address] Platelet Morphology Normal Normal Normal [facility] Comment on above: Result Comment: PERF ORMED BY: [place] [address] PATHOLOGIST [employer] CARDOZO M.D. Performed By: #### D IFF CBC, TROP, CMP, T4F, PTT, CRP, T4T, PT, TSH3 #### [address] [place] [address] [place] Platelets (Bld) [#/Vol] 285 10*3/uL Normal 150-450 [facility] Comment on above: Performed By: #### D IFF CBC, TROP, CMP, T4F, PTT, CRP, T4T, PT, TSH3 #### [address] RBC (Bld) [#/Vol] 4.17 10*6/uL Normal 3.60-5.00 [facility] Comment on above: Performed By: #### D IFF CBC, TROP, CMP, T4F, PTT, CRP, T4T, PT, TSH3 #### [facility] [address] RBC morphology finding Nom (Bld) Normal Normal [facility] Comment on above: Performed By: #### D IFF CBC, TROP, CMP, T4F, PTT, CRP, T4T, PT, TSH3 #### [address] Reactive Lymphocytes 4 % Normal 0-12 [facility] Comment on above: Performed By: #### D IFF CBC, TROP, CMP, T4F, PTT, CRP, T4T, PT, TSH3 #### [address] Segmented neutrophils/100 WBC (Bld) 77 % High 50-70 [facility] Comment on above: Performed By: #### D IFF CBC, TROP, CMP, T4F, PTT, CRP, T4T, PT, TSH3 #### [address] WBC (Bld) [#/Vol] 7.1 10*3/uL Normal 4.5-11.0 [facility] Comment on above: Performed By: #### D IFF CBC, TROP, CMP, T4F, PTT, CRP, T4T, PT, TSH3 #### [address] Glucose Poct Glucometerson 0 05-06-2020 Glucose [Mass/Vol] 264 mg/dL Normal [facility] Comment on above: Result Comment: [place] om Glucose Reference Range is dependent on time and content of last meal. Glucose of more than 200 mg/dL in a nonstressed, ambulatory subject supports the diagnosis of Diabetes Mellitus. PERFORMED BY: [place] [address] PATHOLOGIST [employer] CARDOZO M.D. Performed By: #### D IFF CBC, TROP, CMP, T4F, PTT, CRP, T4T, PT, TSH3 #### [place] [address] [place] Glucose [Mass/Vol] 352 mg/dL Normal [facility] Comment on above: Result Comment: [place] om Glucose Reference Range is dependent on time and content of last meal. Glucose of more than 200 mg/dL in a nonstressed, ambulatory subject supports the diagnosis of Diabetes Mellitus. PERFORMED BY: [place] [address] PATHOLOGIST [employer] CARDOZO M.D. Performed By: #### D IFF CBC, TROP, CMP, T4F, PTT, CRP, T4T, PT, TSH3 #### [place] [address] [place] Glucose [Mass/Vol] 256 mg/dL Normal [facility] Comment on above: Result Comment: [place] om Glucose Reference Range is dependent on time and content of last meal. Glucose of more than 200 mg/dL in a nonstressed, ambulatory subject supports the diagnosis of Diabetes Mellitus. PERFORMED BY: [place] [address] PATHOLOGIST [employer] CARDOZO M.D. Performed By: #### D IFF CBC, TROP, CMP, T4F, PTT, CRP, T4T, PT, TSH3 #### [place] [id number] [place] Glucose [Mass/Vol] 120 mg/dL Normal [facility] Comment on above: Result Comment: [place] om Glucose Reference Range is dependent on time and content of last meal. Glucose of more than 200 mg/dL in a nonstressed, ambulatory subject supports the diagnosis of Diabetes Mellitus. PERFORMED BY: [place] [address] PATHOLOGIST [employer] CARDOZO M.D. Performed By: #### D IFF CBC, TROP, CMP, T4F, PTT, CRP, T4T, PT, TSH3 #### [address] C-Reactive Proteinon 021 C-Reactive Protein 5.4 mg/dL High 0.0-1.0 [facility] Comment on above: Result Comment: PERF ORMED BY: [place] [address] PATHOLOGIST [employer] CARDOZO M.D. Performed By: #### D IFF CBC, TROP, CMP, T4F, PTT, CRP, T4T, PT, TSH3 #### [address] Comprehensive Metabolic Pane brandee 05-05-2020 Albumin [Mass/Vol] 2.7 g/dL Low 3.2-5.5 [facility] Comment on above: Performed By: #### D IFF CBC, TROP, CMP, T4F, PTT, CRP, T4T, PT, TSH3 #### [address] Albumin/Globulin [Mass ratio] 0.8 {ratio} Normal [facility] Comment on above: Performed By: #### D IFF CBC, TROP, CMP, T4F, PTT, CRP, T4T, PT, TSH3 #### [address] ALP [Catalytic activity/Vol] 53 U/L Normal 32-92 [facility] Comment on above: Performed By: #### D IFF CBC, TROP, CMP, T4F, PTT, CRP, T4T, PT, TSH3 #### [address] ALT [Catalytic activity/Vol] 61 U/L High 10-60 [facility] Comment on above: Performed By: #### D IFF CBC, TROP, CMP, T4F, PTT, CRP, T4T, PT, TSH3 #### [facility] [address] [place] [address] AST [Catalytic activity/Vol] 39 U/L Normal 10-42 [facility] Comment on above: Performed By: #### D IFF CBC, TROP, CMP, T4F, PTT, CRP, T4T, PT, TSH3 #### [facility] [address] [place] [address] Bilirubin [Mass/Vol] 0.7 mg/dL Normal 0.3-1.2 [facility] Comment on above: Performed By: #### D IFF CBC, TROP, CMP, T4F, PTT, CRP, T4T, PT, TSH3 #### [facility] [address] [place] [address] Calcium [Mass/Vol] 8.2 mg/dL Normal 8.2-10.2 [facility] Comment on above: Performed By: #### D IFF CBC, TROP, CMP, T4F, PTT, CRP, T4T, PT, TSH3 #### [facility] [address] [place] [address] Chloride [Moles/Vol] 92 mmol/L Low 95-114 [facility] Comment on above: Performed By: #### D IFF CBC, TROP, CMP, T4F, PTT, CRP, T4T, PT, TSH3 #### [facility] [address] [place] [address] CO2 [Moles/Vol] 32.7 mmol/L High 22.0-30.0 [facility] Comment on above: Performed By: #### D IFF CBC, TROP, CMP, T4F, PTT, CRP, T4T, PT, TSH3 #### [facility] [address] [place] [address] Creatinine [Mass/Vol] 0.87 mg/dL Normal 0.44-1.03 [facility] Comment on above: Performed By: #### D IFF CBC, TROP, CMP, T4F, PTT, CRP, T4T, PT, TSH3 #### [address] Creatinine Clr Calc Pharmacy 92.09 [facility] Comment on above: Result Comment: PERF ORMED BY: [place] [address] PATHOLOGIST [employer] CARDOZO M.D. Performed By: #### D IFF CBC, TROP, CMP, T4F, PTT, CRP, T4T, PT, TSH3 #### [address] Estimated GFR ( Jasmin > 60 [facility] Comment on above: Result Comment: GFR estimated reference range: According to KDOQI guidelines, <60 ml/min/1.73m2 is sufficient to diagnose a patient with chronic kidney disease. Performed By: #### D IFF CBC, TROP, CMP, T4F, PTT, CRP, T4T, PT, TSH3 #### [address] Estimated GFR (Non- Am > 60 [facility] Comment on above: Performed By: #### D IFF CBC, TROP, CMP, T4F, PTT, CRP, T4T, PT, TSH3 #### [address] Globulin (S) [Mass/Vol] 3.2 g/dL [facility] Comment on above: Performed By: #### D IFF CBC, TROP, CMP, T4F, PTT, CRP, T4T, PT, TSH3 #### [address] Glucose [Mass/Vol] 433 mg/dL High 70-100 [facility] Comment on above: Result Comment: [place] Glucose Reference Range is dependent on time and content of last meal. Glucose of more than 200 mg/dL in a nonstressed, ambulatory subject supports the diagnosis of Diabetes Mellitus. ADA recommended reference range Performed By: #### D IFF CBC, TROP, CMP, T4F, PTT, CRP, T4T, PT, TSH3 #### [facility] [address] Potassium [Moles/Vol] 4.0 mmol/L Normal 3.5-5.1 [facility] Comment on above: Performed By: #### D IFF CBC, TROP, CMP, T4F, PTT, CRP, T4T, PT, TSH3 #### [facility] [address] Protein [Mass/Vol] 5.9 g/dL Low 6.1-7.9 [facility] Comment on above: Performed By: #### D IFF CBC, TROP, CMP, T4F, PTT, CRP, T4T, PT, TSH3 #### [facility] [address] Sodium [Moles/Vol] 138 mmol/L Normal 136-146 [facility] Comment on above: Performed By: #### D IFF CBC, TROP, CMP, T4F, PTT, CRP, T4T, PT, TSH3 #### [facility] [address] Urea nitrogen [Mass/Vol] 31 mg/dL High 9-23 [facility] Comment on above: Performed By: #### D IFF CBC, TROP, CMP, T4F, PTT, CRP, T4T, PT, TSH3 #### [facility] [address] Albumin [Mass/Vol] 2.5 g/dL Low 3.2-5.5 [facility] Comment on above: Performed By: #### D IFF CBC, TROP, CMP, T4F, PTT, CRP, T4T, PT, TSH3 #### [place] [address] [place] Albumin/Globulin [Mass ratio] 0.8 {ratio} Normal [facility] Comment on above: Performed By: #### D IFF CBC, TROP, CMP, T4F, PTT, CRP, T4T, PT, TSH3 #### [place] [address] [place] ALP [Catalytic activity/Vol] 49 U/L Normal 32-92 [facility] Comment on above: Performed By: #### D IFF CBC, TROP, CMP, T4F, PTT, CRP, T4T, PT, TSH3 #### [address] ALT [Catalytic activity/Vol] 57 U/L Normal 10-60 [facility] Comment on above: Performed By: #### D IFF CBC, TROP, CMP, T4F, PTT, CRP, T4T, PT, TSH3 #### [address] AST [Catalytic activity/Vol] 37 U/L Normal 10-42 [facility] Comment on above: Performed By: #### D IFF CBC, TROP, CMP, T4F, PTT, CRP, T4T, PT, TSH3 #### [address] Bilirubin [Mass/Vol] 0.8 mg/dL Normal 0.3-1.2 [facility] Comment on above: Performed By: #### D IFF CBC, TROP, CMP, T4F, PTT, CRP, T4T, PT, TSH3 #### [facility] [address] [place] [address] Calcium [Mass/Vol] 8.6 mg/dL Normal 8.2-10.2 [facility] Comment on above: Performed By: #### D IFF CBC, TROP, CMP, T4F, PTT, CRP, T4T, PT, TSH3 #### [facility] [address] [place] [address] Chloride [Moles/Vol] 97 mmol/L Normal 95-114 [facility] Comment on above: Performed By: #### D IFF CBC, TROP, CMP, T4F, PTT, CRP, T4T, PT, TSH3 #### [address] CO2 [Moles/Vol] 35.9 mmol/L High 22.0-30.0 [facility] Comment on above: Performed By: #### D IFF CBC, TROP, CMP, T4F, PTT, CRP, T4T, PT, TSH3 #### [facility] [address] Creatinine [Mass/Vol] 0.94 mg/dL Normal 0.44-1.03 [facility] Comment on above: Performed By: #### D IFF CBC, TROP, CMP, T4F, PTT, CRP, T4T, PT, TSH3 #### [facility] [address] Creatinine Clr Calc Pharmacy 84.70 [facility] Comment on above: Performed By: #### D IFF CBC, TROP, CMP, T4F, PTT, CRP, T4T, PT, TSH3 #### [facility] [address] Estimated GFR ( Jasmin > 60 [facility] Comment on above: Result Comment: GFR estimated reference range: According to KDOQI guidelines, <60 ml/min/1.73m2 is sufficient to diagnose a patient with chronic kidney disease. Performed By: #### D IFF CBC, TROP, CMP, T4F, PTT, CRP, T4T, PT, TSH3 #### [facility] [address] Estimated GFR (Non- Am 60 [facility] Comment on above: Performed By: #### D IFF CBC, TROP, CMP, T4F, PTT, CRP, T4T, PT, TSH3 #### [facility] [address] Globulin (S) [Mass/Vol] 3.1 g/dL [facility] Comment on above: Performed By: #### D IFF CBC, TROP, CMP, T4F, PTT, CRP, T4T, PT, TSH3 #### [facility] [address] Glucose [Mass/Vol] 250 mg/dL High 70-100 [facility] Comment on above: Result Comment: [place] om Glucose Reference Range is dependent on time and content of last meal. Glucose of more than 200 mg/dL in a nonstressed, ambulatory subject supports the diagnosis of Diabetes Mellitus. ADA recommended reference range Performed By: #### D IFF CBC, TROP, CMP, T4F, PTT, CRP, T4T, PT, TSH3 #### [address] Potassium [Moles/Vol] 4.4 mmol/L Normal 3.5-5.1 [facility] Comment on above: Performed By: #### D IFF CBC, TROP, CMP, T4F, PTT, CRP, T4T, PT, TSH3 #### [facility] [address] Protein [Mass/Vol] 5.6 g/dL Low 6.1-7.9 [facility] Comment on above: Performed By: #### D IFF CBC, TROP, CMP, T4F, PTT, CRP, T4T, PT, TSH3 #### [address] Sodium [Moles/Vol] 140 mmol/L Normal 136-146 [facility] Comment on above: Performed By: #### D IFF CBC, TROP, CMP, T4F, PTT, CRP, T4T, PT, TSH3 #### [address] Urea nitrogen [Mass/Vol] 35 mg/dL High 9-23 [facility] Comment on above: Performed By: #### D IFF CBC, TROP, CMP, T4F, PTT, CRP, T4T, PT, TSH3 #### [address] D-Dimer High Sensitivityon 0 05-05-2020 D-Dimer High Sensitivity < 200 Normal 0-243 [facility] Comment on above: Result Comment: The reference range for D-dimer is <243 ng/mL D-dimer units. D-dimer results must be used in conjunction with a clinical pretest probability (PTP) assessment model for deep vein thrombosis (DVT) and pulmonary embolism (PE). Results <230 ng/mL d-dimer units can be used as a negative predictor in patients with low or moderate probability for DVT/PE. Results above the exclusion threshold of 230 ng/ml D-dimer units for DVT/PE may indicate the need for further diagnostic testing. D-Dimer can be increased in hospitalized patients due to co-morbid conditions. PERFORMED BY: [place] [address] PATHOLOGIST [employer]Y CARDOZO M.D. Performed By: #### D IFF CBC, TROP, CMP, T4F, PTT, CRP, T4T, PT, TSH3 #### [address] Glucose Poct Glucometerson 0 05-05-2020 Glucose [Mass/Vol] 334 mg/dL Normal [facility] Comment on above: Result Comment: [place] om Glucose Reference Range is dependent on time and content of last meal. Glucose of more than 200 mg/dL in a nonstressed, ambulatory subject supports the diagnosis of Diabetes Mellitus. PERFORMED BY: [place] [address] PATHOLOGIST [employer] CARDOZO M.D. Performed By: #### D IFF CBC, TROP, CMP, T4F, PTT, CRP, T4T, PT, TSH3 #### [address] Commemt1 Glu2: Cleaned Meter Normal [facility] Comment on above: Result Comment: PERF ORMED BY: [place] [address] PATHOLOGIST [employer]Y CARDOZO M.D. Performed By: #### D IFF CBC, TROP, CMP, T4F, PTT, CRP, T4T, PT, TSH3 #### [address] Glucose [Mass/Vol] 346 mg/dL Normal [facility] Comment on above: Result Comment: [place] om Glucose Reference Range is dependent on time and content of last meal. Glucose of more than 200 mg/dL in a nonstressed, ambulatory subject supports the diagnosis of Diabetes Mellitus. Performed By: #### D IFF CBC, TROP, CMP, T4F, PTT, CRP, T4T, PT, TSH3 #### [address] Commemt1 Glu2: Cleaned Meter Normal [facility] Comment on above: Result Comment: PERF ORMED BY: [place] [address] PATHOLOGIST [employer] CARDOZO M.D. Performed By: #### D IFF CBC, TROP, CMP, T4F, PTT, CRP, T4T, PT, TSH3 #### [address] Glucose [Mass/Vol] 293 mg/dL Normal [facility] Comment on above: Result Comment: [place] om Glucose Reference Range is dependent on time and content of last meal. Glucose of more than 200 mg/dL in a nonstressed, ambulatory subject supports the diagnosis of Diabetes Mellitus. Performed By: #### D IFF CBC, TROP, CMP, T4F, PTT, CRP, T4T, PT, TSH3 #### [address] Glucose [Mass/Vol] 180 mg/dL Normal [facility] Comment on above: Result Comment: [place] om Glucose Reference Range is dependent on time and content of last meal. Glucose of more than 200 mg/dL in a nonstressed, ambulatory subject supports the diagnosis of Diabetes Mellitus. PERFORMED BY: [place] [address] PATHOLOGIST [employer] CARDOZO M.D. Performed By: #### D IFF CBC, TROP, CMP, T4F, PTT, CRP, T4T, PT, TSH3 #### [place] [address] [place] ISTAT ABGon 05-05-2020 CO2 [Moles/Vol] 41 mmol/L High 23-29 [facility] Comment on above: Performed By: #### D DIMER #### [address] Glucose [Mass/Vol] 251 mg/dL High 70-105 [facility] Comment on above: Result Comment: PERF ORMED BY: [place] [address] PATHOLOGIST [employer]Y CARDOZO M.D. Performed By: #### D DIMER #### [address] HCO3 (Bld) [Moles/Vol] 38.5 mmol/L High 22.0-28.0 [facility] Comment on above: Performed By: #### D DIMER #### [address] Hematocrit (Bld) [Volume fraction] 37.0 % Low 38.0-51.0 [facility] Comment on above: Performed By: #### D DIMER #### [address] Hemoglobin (Bld) [Mass/Vol] 12.6 g/dL Normal 12.0-17.0 [facility] Comment on above: Performed By: #### D DIMER #### [address] ISTAT Base Excess 12 mmol/L High -2 TO 3 [facility] Comment on above: Performed By: #### D DIMER #### [address] ISTAT Ionized Calcium 1.28 mol/L Normal 1.12-1.32 [facility] Comment on above: Performed By: #### D DIMER #### [address] ISTAT PCO2 77.1 mm[Hg] High 35-51 [facility] Comment on above: Performed By: #### D DIMER #### [address] ISTAT Ph 7.306 Low 7.31-7.45 [facility] Comment on above: Performed By: #### D DIMER #### [address] ISTAT PO2 86 mm[Hg] Normal 80-105 [facility] Comment on above: Performed By: #### D DIMER #### [facility] [address] Oxygen saturation in Blood 95 % Normal 95-98 [facility] Comment on above: Result Comment: Refe rence ranges reflect baseline specimens only Performed By: #### D DIMER #### [address] Potassium [Moles/Vol] 4.1 mmol/L Normal 3.5-4.9 [facility] Comment on above: Performed By: #### D DIMER #### [address] Sodium [Moles/Vol] 139 mmol/L Normal 138-146 [facility] Comment on above: Performed By: #### D DIMER #### [address] QuantiFERON TB Goldon 2020 QFTB Criteria Normal . [facility] Comment on above: Result Comment: The QuantiFERON-TB Gold Plus result is determined by subtracting the Nil value from either TB antigen (Ag) tube. The mitogen tube serves as a control for the test. Performed By: #### D IFF CBC, TROP, CMP, T4F, PTT, CRP, T4T, PT, TSH3 #### [facility] [address] Quant TB Ag Value 0.02 Normal . [facility] Comment on above: Performed By: #### D IFF CBC, TROP, CMP, T4F, PTT, CRP, T4T, PT, TSH3 #### [facility] [address] [place] [id number] [facility] Quant TB Gold Plus Negative Normal Negative [facility] Comment on above: Result Comment: The specimen received for QuantiFERON testing was incubated by the ordering institution. Specific procedures outlined in our Directory of Services and in the package insert for the QuantiFERON Gold (In Tube) test must be followed to enable for proper stimulation of cells for the production of interferon gamma. Chemiluminescence immunoassay methodology Performed at: [address] [id number] Director Of Sales And Marketing: Anish Hernández PhD, Phone: [phone] PERFORMED BY: [place] [address] PATHOLOGIST [employer]OZO M.D. Performed By: #### D IFF CBC, TROP, CMP, T4F, PTT, CRP, T4T, PT, TSH3 #### [address] Quant TB2 Ag Value 0.01 Normal . [facility] Comment on above: Performed By: #### D IFF CBC, TROP, CMP, T4F, PTT, CRP, T4T, PT, TSH3 #### [address] Quantiferon Nil Value 0.03 Normal . [facility] Comment on above: Performed By: #### D IFF CBC, TROP, CMP, T4F, PTT, CRP, T4T, PT, TSH3 #### [address] Quantiferon TB Mitogen 1.69 Normal . [facility] Comment on above: Performed By: #### D IFF CBC, TROP, CMP, T4F, PTT, CRP, T4T, PT, TSH3 #### [address] Scan and CBCon 05-05-2020 Basophils (Bld) [#/Vol] 0.0 10*3/uL Normal 0.0-0.2 [facility] Comment on above: Performed By: #### D IFF CBC, TROP, CMP, T4F, PTT, CRP, T4T, PT, TSH3 #### [address] Basophils/100 WBC (Bld) 0.1 % Normal . [facility] Comment on above: Performed By: #### D IFF CBC, TROP, CMP, T4F, PTT, CRP, T4T, PT, TSH3 #### [address] Eosinophils (Bld) [#/Vol] 0.0 10*3/uL Normal 0.0-0.45 [facility] Comment on above: Performed By: #### D IFF CBC, TROP, CMP, T4F, PTT, CRP, T4T, PT, TSH3 #### [address] Eosinophils/100 WBC (Bld) 0.0 % Normal . [facility] Comment on above: Performed By: #### D IFF CBC, TROP, CMP, T4F, PTT, CRP, T4T, PT, TSH3 #### [address] Erythrocyte distribution width (RBC) [Ratio] 13.9 % Normal 11.9-15.3 [facility] Comment on above: Performed By: #### D IFF CBC, TROP, CMP, T4F, PTT, CRP, T4T, PT, TSH3 #### [address] Hematocrit (Bld) [Volume fraction] 35.7 % Normal 34.0-46.4 [facility] Comment on above: Performed By: #### D IFF CBC, TROP, CMP, T4F, PTT, CRP, T4T, PT, TSH3 #### [address] Hemoglobin (Bld) [Mass/Vol] 11.9 g/dL Normal 11.8-15.4 [facility] Comment on above: Performed By: #### D IFF CBC, TROP, CMP, T4F, PTT, CRP, T4T, PT, TSH3 #### [address] Lymphocytes (Bld) [#/Vol] 0.9 10*3/uL Low 1.00-4.8 [facility] Comment on above: Performed By: #### D IFF CBC, TROP, CMP, T4F, PTT, CRP, T4T, PT, TSH3 #### [address] Lymphocytes/100 WBC (Bld) 11.6 % Normal . [facility] Comment on above: Performed By: #### D IFF CBC, TROP, CMP, T4F, PTT, CRP, T4T, PT, TSH3 #### [address] MCH (RBC) [Entitic mass] 30.6 pg Normal 24.7-34.3 [facility] Comment on above: Performed By: #### D IFF CBC, TROP, CMP, T4F, PTT, CRP, T4T, PT, TSH3 #### [address] MCV (RBC) [Entitic vol] 91.6 fL Normal 80-100 [facility] Comment on above: Performed By: #### D IFF CBC, TROP, CMP, T4F, PTT, CRP, T4T, PT, TSH3 #### [address] Mean Corpuscular HGB Conc 33.4 g/dL Normal 32.0-35.0 [facility] Comment on above: Performed By: #### D IFF CBC, TROP, CMP, T4F, PTT, CRP, T4T, PT, TSH3 #### [address] Monocytes (Bld) [#/Vol] 1.0 10*3/uL High 0.0-0.8 [facility] Comment on above: Performed By: #### D IFF CBC, TROP, CMP, T4F, PTT, CRP, T4T, PT, TSH3 #### [address] Monocytes/100 WBC (Bld) 12.4 % Normal . [facility] Comment on above: Performed By: #### D IFF CBC, TROP, CMP, T4F, PTT, CRP, T4T, PT, TSH3 #### [address] Neutrophils (Bld) [#/Vol] 6.0 10*3/uL Normal 1.8-7.7 [facility] Comment on above: Performed By: #### D IFF CBC, TROP, CMP, T4F, PTT, CRP, T4T, PT, TSH3 #### [facility] [address] Neutrophils/100 WBC (Bld) 75.9 % Normal . [facility] Comment on above: Performed By: #### D IFF CBC, TROP, CMP, T4F, PTT, CRP, T4T, PT, TSH3 #### [facility] [address] Nucleated RBC/100 WBC (Bld) [Ratio] 0.1 % Normal 0-0.5 [facility] Comment on above: Performed By: #### D IFF CBC, TROP, CMP, T4F, PTT, CRP, T4T, PT, TSH3 #### [facility] [address] Platelet Estimate Normal Normal Normal [facility] Comment on above: Performed By: #### D IFF CBC, TROP, CMP, T4F, PTT, CRP, T4T, PT, TSH3 #### [address] Platelet mean volume (Bld) [Entitic vol] 7.8 fL Normal 6.3-10.7 [facility] Comment on above: Performed By: #### D IFF CBC, TROP, CMP, T4F, PTT, CRP, T4T, PT, TSH3 #### [address] Platelet Morphology Normal Normal Normal [facility] Comment on above: Result Comment: PERF ORMED BY: [place] [address] PATHOLOGIST [employer] CARDOZO M.D. Performed By: #### D IFF CBC, TROP, CMP, T4F, PTT, CRP, T4T, PT, TSH3 #### [address] Platelets (Bld) [#/Vol] 258 10*3/uL Normal 150-450 [facility] Comment on above: Performed By: #### D IFF CBC, TROP, CMP, T4F, PTT, CRP, T4T, PT, TSH3 #### [facility] [address] RBC (Bld) [#/Vol] 3.90 10*6/uL Normal 3.60-5.00 [facility] Comment on above: Performed By: #### D IFF CBC, TROP, CMP, T4F, PTT, CRP, T4T, PT, TSH3 #### [facility] [address] RBC morphology finding Nom (Bld) Normal Normal [facility] Comment on above: Performed By: #### D IFF CBC, TROP, CMP, T4F, PTT, CRP, T4T, PT, TSH3 #### [address] WBC (Bld) [#/Vol] 7.9 10*3/uL Normal 4.5-11.0 [facility] Comment on above: Performed By: #### D IFF CBC, TROP, CMP, T4F, PTT, CRP, T4T, PT, TSH3 #### [address] A1C with Estimated Average G luon 05-04-2020 Glucose [Mass/Vol] 174 mg/dL Normal [facility] Comment on above: Result Comment: PERF ORMED BY: [place] [address] PATHOLOGIST [employer] CARDOZO M.D. Performed By: #### D DIMER #### [address] HbA1c (Bld) [Mass fraction] 7.7 % High 4.3-5.6 [facility] Comment on above: Result Comment: Incr eased risk for diabetes: 5.7 - 6.4 diabetes: >6.4 glycemic control for adults with diabetes: <7.0 Performed By: #### D DIMER #### [address] ABO/Rh Retypeon 05-04-2020 ABO/RH Recheck Result Positive Normal [facility] Comment on above: Result Comment: PERF ORMED BY: [place] [address] PATHOLOGIST [employer]Y CARDOZO M.D. C-Reactive Proteinon 021 C-Reactive Protein 8.3 mg/dL High 0.0-1.0 [facility] Comment on above: Performed By: #### D IFF CBC, TROP, CMP, T4F, PTT, CRP, T4T, PT, TSH3 #### [facility] [address] [place] [address] Comprehensive Metabolic Pane brandee 05-04-2020 Albumin [Mass/Vol] 2.6 g/dL Low 3.2-5.5 [facility] Comment on above: Performed By: #### D IFF CBC, TROP, CMP, T4F, PTT, CRP, T4T, PT, TSH3 #### [facility] [address] [place] [address] Albumin/Globulin [Mass ratio] 0.8 {ratio} Normal [facility] Comment on above: Performed By: #### D IFF CBC, TROP, CMP, T4F, PTT, CRP, T4T, PT, TSH3 #### [facility] [address] [place] [address] ALP [Catalytic activity/Vol] 56 U/L Normal 32-92 [facility] Comment on above: Performed By: #### D IFF CBC, TROP, CMP, T4F, PTT, CRP, T4T, PT, TSH3 #### [facility] [address] [place] [address] ALT [Catalytic activity/Vol] 59 U/L Normal 10-60 [facility] Comment on above: Performed By: #### D IFF CBC, TROP, CMP, T4F, PTT, CRP, T4T, PT, TSH3 #### [facility] [address] [place] [address] AST [Catalytic activity/Vol] 43 U/L High 10-42 [facility] Comment on above: Performed By: #### D IFF CBC, TROP, CMP, T4F, PTT, CRP, T4T, PT, TSH3 #### [facility] [address] Bilirubin [Mass/Vol] 0.7 mg/dL Normal 0.3-1.2 [facility] Comment on above: Performed By: #### D IFF CBC, TROP, CMP, T4F, PTT, CRP, T4T, PT, TSH3 #### [facility] [address] Calcium [Mass/Vol] 8.6 mg/dL Normal 8.2-10.2 [facility] Comment on above: Performed By: #### D IFF CBC, TROP, CMP, T4F, PTT, CRP, T4T, PT, TSH3 #### [address] Chloride [Moles/Vol] 94 mmol/L Low 95-114 [facility] Comment on above: Performed By: #### D IFF CBC, TROP, CMP, T4F, PTT, CRP, T4T, PT, TSH3 #### [address] CO2 [Moles/Vol] 32.2 mmol/L High 22.0-30.0 [facility] Comment on above: Performed By: #### D IFF CBC, TROP, CMP, T4F, PTT, CRP, T4T, PT, TSH3 #### [address] Creatinine [Mass/Vol] 1.13 mg/dL High 0.44-1.03 [facility] Comment on above: Performed By: #### D IFF CBC, TROP, CMP, T4F, PTT, CRP, T4T, PT, TSH3 #### [facility] [address] [place] [address] Creatinine Clr Calc Pharmacy 70.46 [facility] Comment on above: Performed By: #### D IFF CBC, TROP, CMP, T4F, PTT, CRP, T4T, PT, TSH3 #### [address] Estimated GFR ( Jasmin 59 [facility] Comment on above: Result Comment: GFR estimated reference range: According to KDOQI guidelines, <60 ml/min/1.73m2 is sufficient to diagnose a patient with chronic kidney disease. Performed By: #### D IFF CBC, TROP, CMP, T4F, PTT, CRP, T4T, PT, TSH3 #### [facility] [address] Estimated GFR (Non- Am 48 Normal [facility] Comment on above: Performed By: #### D IFF CBC, TROP, CMP, T4F, PTT, CRP, T4T, PT, TSH3 #### [facility] [address] Globulin (S) [Mass/Vol] 3.3 g/dL [facility] Comment on above: Performed By: #### D IFF CBC, TROP, CMP, T4F, PTT, CRP, T4T, PT, TSH3 #### [facility] [address] Glucose [Mass/Vol] 378 mg/dL High 70-100 [facility] Comment on above: Result Comment: [facility] Glucose Reference Range is dependent on time and content of last meal. Glucose of more than 200 mg/dL in a nonstressed, ambulatory subject supports the diagnosis of Diabetes Mellitus. ADA recommended reference range Performed By: #### D IFF CBC, TROP, CMP, T4F, PTT, CRP, T4T, PT, TSH3 #### [facility] [address] Potassium [Moles/Vol] 4.2 mmol/L Normal 3.5-5.1 [facility] Comment on above: Performed By: #### D IFF CBC, TROP, CMP, T4F, PTT, CRP, T4T, PT, TSH3 #### [facility] [address] Protein [Mass/Vol] 5.9 g/dL Low 6.1-7.9 [facility] Comment on above: Performed By: #### D IFF CBC, TROP, CMP, T4F, PTT, CRP, T4T, PT, TSH3 #### [address] Sodium [Moles/Vol] 135 mmol/L Low 136-146 [facility] Comment on above: Performed By: #### D IFF CBC, TROP, CMP, T4F, PTT, CRP, T4T, PT, TSH3 #### [address] Urea nitrogen [Mass/Vol] 39 mg/dL High 9- [facility] Comment on above: Performed By: #### D IFF CBC, TROP, CMP, T4F, PTT, CRP, T4T, PT, TSH3 #### [address] D-Dimer High Sensitivityon 0 05-04-2020 D-Dimer High Sensitivity 232 ng/mL Normal 0-243 [facility] Comment on above: Result Comment: The reference range for D-dimer is <243 ng/mL D-dimer units. D-dimer results must be used in conjunction with a clinical pretest probability (PTP) assessment model for deep vein thrombosis (DVT) and pulmonary embolism (PE). Results <230 ng/mL d-dimer units can be used as a negative predictor in patients with low or moderate probability for DVT/PE. Results above the exclusion threshold of 230 ng/ml D-dimer units for DVT/PE may indicate the need for further diagnostic testing. D-Dimer can be increased in hospitalized patients due to co-morbid conditions. PERFORMED BY: [place] [address] PATHOLOGIST [employer]Y CARDOZO M.D. Performed By: #### D DIMER #### [address] Diff and CBCon 05-04-2020 Band form neutrophils/100 WBC (Bld) 4 % Normal 0-5 [facility] Comment on above: Performed By: #### D IFF CBC, TROP, CMP, T4F, PTT, CRP, T4T, PT, TSH3 #### [address] Basophils (Bld) [#/Vol] 0.0 10*3/uL Normal 0.0-0.2 [facility] Comment on above: Performed By: #### D IFF CBC, TROP, CMP, T4F, PTT, CRP, T4T, PT, TSH3 #### [facility] [address] Basophils/100 WBC (Bld) 0.1 % Normal . [facility] Comment on above: Performed By: #### D IFF CBC, TROP, CMP, T4F, PTT, CRP, T4T, PT, TSH3 #### [address] Eosinophils (Bld) [#/Vol] 0.0 10*3/uL Normal 0.0-0.45 [facility] Comment on above: Performed By: #### D IFF CBC, TROP, CMP, T4F, PTT, CRP, T4T, PT, TSH3 #### [address] Eosinophils/100 WBC (Bld) 0.0 % Normal . [facility] Comment on above: Performed By: #### D IFF CBC, TROP, CMP, T4F, PTT, CRP, T4T, PT, TSH3 #### [address] Erythrocyte distribution width (RBC) [Ratio] 14.3 % Normal 11.9-15.3 [facility] Comment on above: Performed By: #### D IFF CBC, TROP, CMP, T4F, PTT, CRP, T4T, PT, TSH3 #### [address] Hematocrit (Bld) [Volume fraction] 37.2 % Normal 34.0-46.4 [facility] Comment on above: Performed By: #### D IFF CBC, TROP, CMP, T4F, PTT, CRP, T4T, PT, TSH3 #### [address] Hemoglobin (Bld) [Mass/Vol] 12.3 g/dL Normal 11.8-15.4 [facility] Comment on above: Performed By: #### D IFF CBC, TROP, CMP, T4F, PTT, CRP, T4T, PT, TSH3 #### [address] Lymphocytes (Bld) [#/Vol] 0.5 10*3/uL Low 1.00-4.8 [facility] Comment on above: Performed By: #### D IFF CBC, TROP, CMP, T4F, PTT, CRP, T4T, PT, TSH3 #### [address] Lymphocytes/100 WBC (Bld) 10 % Low 18-42 [facility] Comment on above: Performed By: #### D IFF CBC, TROP, CMP, T4F, PTT, CRP, T4T, PT, TSH3 #### [address] Lymphocytes/100 WBC (Bld) 7.4 % Normal . [facility] Comment on above: Performed By: #### D IFF CBC, TROP, CMP, T4F, PTT, CRP, T4T, PT, TSH3 #### [address] MCH (RBC) [Entitic mass] 30.8 pg Normal 24.7-34.3 [facility] Comment on above: Performed By: #### D IFF CBC, TROP, CMP, T4F, PTT, CRP, T4T, PT, TSH3 #### [address] MCV (RBC) [Entitic vol] 92.5 fL Normal 80-100 [facility] Comment on above: Performed By: #### D IFF CBC, TROP, CMP, T4F, PTT, CRP, T4T, PT, TSH3 #### [address] Mean Corpuscular HGB Conc 33.2 g/dL Normal 32.0-35.0 [facility] Comment on above: Performed By: #### D IFF CBC, TROP, CMP, T4F, PTT, CRP, T4T, PT, TSH3 #### [facility] [address] [place] [address] [place] Metamyelocytes 1 % High 0-0 [facility] Comment on above: Performed By: #### D IFF CBC, TROP, CMP, T4F, PTT, CRP, T4T, PT, TSH3 #### [facility] [address] [place] [address] [place] Monocytes (Bld) [#/Vol] 0.6 10*3/uL Normal 0.0-0.8 [facility] Comment on above: Performed By: #### D IFF CBC, TROP, CMP, T4F, PTT, CRP, T4T, PT, TSH3 #### [place] [address] [place] Monocytes/100 WBC (Bld) 4 % Normal 2-11 [facility] Comment on above: Performed By: #### D IFF CBC, TROP, CMP, T4F, PTT, CRP, T4T, PT, TSH3 #### [place] [address] [place] Monocytes/100 WBC (Bld) 7.8 % Normal . [facility] Comment on above: Performed By: #### D IFF CBC, TROP, CMP, T4F, PTT, CRP, T4T, PT, TSH3 #### [place] [address] [place] Myelocytes 2 % High 0-0 [facility] Comment on above: Performed By: #### D IFF CBC, TROP, CMP, T4F, PTT, CRP, T4T, PT, TSH3 #### [facility] [address] [place] [address] [place] Neutrophils (Bld) [#/Vol] 6.3 10*3/uL Normal 1.8-7.7 [facility] Comment on above: Performed By: #### D IFF CBC, TROP, CMP, T4F, PTT, CRP, T4T, PT, TSH3 #### [place] [address] [place] Neutrophils/100 WBC (Bld) 84.7 % Normal . [facility] Comment on above: Performed By: #### D IFF CBC, TROP, CMP, T4F, PTT, CRP, T4T, PT, TSH3 #### [facility] [address] [place] [address] [place] Nucleated RBC/100 WBC (Bld) [Ratio] 0.2 % Normal 0-0.5 [facility] Comment on above: Result Comment: PERF ORMED BY: [place] [address] PATHOLOGIST [employer] THIERRY CARDOZO M.D. Performed By: #### D IFF CBC, TROP, CMP, T4F, PTT, CRP, T4T, PT, TSH3 #### [address] Platelet Estimate Normal Normal Normal [facility] Comment on above: Performed By: #### D IFF CBC, TROP, CMP, T4F, PTT, CRP, T4T, PT, TSH3 #### [address] Platelet mean volume (Bld) [Entitic vol] 7.8 fL Normal 6.3-10.7 [facility] Comment on above: Performed By: #### D IFF CBC, TROP, CMP, T4F, PTT, CRP, T4T, PT, TSH3 #### [address] Platelet Morphology Normal Normal Normal [facility] Comment on above: Result Comment: PERF ORMED BY: [place] [address] PATHOLOGIST [employer]Y CARDOZO M.D. Performed By: #### D IFF CBC, TROP, CMP, T4F, PTT, CRP, T4T, PT, TSH3 #### [place] [address] [place] Platelets (Bld) [#/Vol] 254 10*3/uL Normal 150-450 [facility] Comment on above: Performed By: #### D IFF CBC, TROP, CMP, T4F, PTT, CRP, T4T, PT, TSH3 #### [facility] [address] RBC (Bld) [#/Vol] 4.02 10*6/uL Normal 3.60-5.00 [facility] Comment on above: Performed By: #### D IFF CBC, TROP, CMP, T4F, PTT, CRP, T4T, PT, TSH3 #### [facility] [address] RBC morphology finding Nom (Bld) Normal Normal [facility] Comment on above: Performed By: #### D IFF CBC, TROP, CMP, T4F, PTT, CRP, T4T, PT, TSH3 #### [facility] [address] Segmented neutrophils/100 WBC (Bld) 79 % High 50-70 [facility] Comment on above: Performed By: #### D IFF CBC, TROP, CMP, T4F, PTT, CRP, T4T, PT, TSH3 #### [facility] [address] WBC (Bld) [#/Vol] 7.4 10*3/uL Normal 4.5-11.0 [facility] Comment on above: Performed By: #### D IFF CBC, TROP, CMP, T4F, PTT, CRP, T4T, PT, TSH3 #### [address] Free T4 (Free Thyroxine)on 0 05-04-2020 Free T4 [Mass/Vol] 1.08 ng/dL Normal 0.61-1.12 [facility] Comment on above: Performed By: #### D IFF CBC, TROP, CMP, T4F, PTT, CRP, T4T, PT, TSH3 #### [facility] [address] Glucose Poct Glucometerson 0 05-04-2020 Glucose [Mass/Vol] 269 mg/dL Normal [facility] Comment on above: Result Comment: [place] om Glucose Reference Range is dependent on time and content of last meal. Glucose of more than 200 mg/dL in a nonstressed, ambulatory subject supports the diagnosis of Diabetes Mellitus. PERFORMED BY: [place] [address] PATHOLOGIST [employer]Y CARDOZO M.D. Performed By: #### D DIMER #### [address] Glucose [Mass/Vol] 275 mg/dL Normal [facility] Comment on above: Result Comment: [place] Glucose Reference Range is dependent on time and content of last meal. Glucose of more than 200 mg/dL in a nonstressed, ambulatory subject supports the diagnosis of Diabetes Mellitus. PERFORMED BY: [place] [address] PATHOLOGIST [employer]Y CARDOZO M.D. Performed By: #### D DIMER #### [address] LDH Lactate Dehydrogenaseon 05-04-2020 LDH Lactate Dehydrogenase 407 U/L High 45-190 [facility] Comment on above: Result Comment: PERF ORMED BY: [place] [address] PATHOLOGIST [employer]Y CARDOZO M.D. Performed By: #### D DIMER #### [address] Partial Thromboplastin Timeo n 05-04-2020 aPTT Coag (Bld) [Time] 24.4 s Low 25.1-36.5 [facility] Comment on above: Result Comment: PERF ORMED BY: [place] [address] PATHOLOGIST [employer]Y CARDOZO M.D. Performed By: #### D IFF CBC, TROP, CMP, T4F, PTT, CRP, T4T, PT, TSH3 #### [address] Prothrombin Time INRon 05-04 INR Coag (PPP) [Relative time] 1.1 {INR} Normal [facility] Comment on above: Result Comment: INR Therapeutic Range A) Pre- and Peroperative OAT started two weeks before surgery. NOT HIP SURGERY: 1.5 - 2.5 HIP SURGERY: 2 - 3 B) Primary and secondary prevention of venous THROMBOSIS: 2 - 3 C) Active venous thrombosis, pulmonary embolism and prevention of recurrent venous thrombosis: 2 - 3 D) Prevention of arterial thromboembolism including patients with mechanical heart valves: 3 - 4.5 Performed By: #### D IFF CBC, TROP, CMP, T4F, PTT, CRP, T4T, PT, TSH3 #### [address] PT Coag (PPP) [Time] 12.3 s Normal 9.0-12.9 [facility] Comment on above: Performed By: #### D IFF CBC, TROP, CMP, T4F, PTT, CRP, T4T, PT, TSH3 #### [address] Thyroid Stimulating Hormoneo n 05-04-2020 TSH Qn 0.14 m[IU]/L Low 0.45-5.33 [facility] Comment on above: Result Comment: PERF ORMED BY: [place] [address] PATHOLOGIST [employer]Y CARDOZO M.D. Performed By: #### D DIMER #### [address] Thyroxine (T4) Totalon 05-04 T4 [Mass/Vol] 9.11 ug/dL Normal 5.39-11.82 [facility] Comment on above: Performed By: #### D IFF CBC, TROP, CMP, T4F, PTT, CRP, T4T, PT, TSH3 #### [address] Troponin I(TnI)on 05-04-2020 Troponin I.cardiac [Mass/Vol] ng/mL Normal 0-0.02 [facility] Comment on above: Result Comment: [place] Cut off value > or equal to 0.03 ng/mL in conjunction with clinical conditions of myocardial infarction. (www.escardio.org/guidelines) PERFORMED BY: [address] [place] [address] PATHOLOGIST [employer]ERRY CARDOZO M.D. Performed By: #### D IFF CBC, TROP, CMP, T4F, PTT, CRP, T4T, PT, TSH3 #### [place] [address] [place] Type and Screenon 05-04-2020 ABO and Rh group Nom (Bld) Blood group O Rh(D) positive [facility] Comment on above: Result Comment: PERF ORMED BY: [place] [address] PATHOLOGIST [employer]Y CARDOZO M.D. Venous Blood Gason CO2 [Moles/Vol] 32.1 mmol/L High 24.0-29.0 [facility] Comment on above: Performed By: #### V BG #### Point of Care testing , HCO3 (Bld) [Moles/Vol] 30.4 mmol/L High 23.0-29.0 [facility] Comment on above: Performed By: #### V BG #### Point of Care testing , Oxygen Device BiPAP [facility] Comment on above: Performed By: #### V BG #### Point of Care testing , Respiratory Critical [facility] Comment on above: Result Comment: Crit ical Value called on: 05/04/2020 at 15:48 PERFORMED BY: [place] [address] PATHOLOGIST [employer]IERRY CARDOZO M.D. Performed By: #### V BG #### Point of Care testing , VBG Base Excess 3.6 mmol/L High -3.0-3.0 [facility] Comment on above: Performed By: #### V BG #### Point of Care testing , VBG Draw Site Venous [facility] Comment on above: Performed By: #### V BG #### Point of Care testing , VBG Frac Inspired O2 100 % Normal [facility] Comment on above: Performed By: #### V BG #### Point of Care testing , VBG Oxygen Saturation 88.7 % Off scale high 73.0-76.0 [facility] Comment on above: Performed By: #### V BG #### Point of Care testing , VBG PCO2 55.8 mm[Hg] High 38.0-50.0 [facility] Comment on above: Performed By: #### V BG #### Point of Care testing , VBG PH Venous PH 7.35 Normal 7.32-7.43 [facility] Comment on above: Performed By: #### V BG #### Point of Care testing , VBG PO2 56.9 mm[Hg] High 35.0-45.0 [facility] Comment on above: Performed By: #### V BG #### Point of Care testing , VBG Pressure Support 10.0 Normal [facility] Comment on above: Performed By: #### V BG #### Point of Care testing , Vitamin D 25 Hydroxy Totalon 05-04-2020 Vitamin D 25 Hydroxy Total 20.7 ng/mL Low 30-100 [facility] Comment on above: Result Comment: SAVAGE MIN D STATUS 25(OH)VITAMIN D RANGE (ng/mL) Deficient <20 Insufficient 20 to <30 Sufficient 30 to 100 Reference: Rangel MF,Jimbo NC, Jonh VALENCIA, et al. Evaluation,treatment, and prevention of vitamin D deficiency; an Endocrine Society clinical practice guideline. JCEM. 2010; 96(7):1911-30. PERFORMED BY: [place] [address] PATHOLOGIST [employer]IERRY CARDOZO M.D. Performed By: #### D DIMER #### [address] [address] [facility] XR chest 1V portableon 05-04 XR chest 1V portable [facility] [address] [place] [address] [place] [address] XRay Report Signed Patient: Radha Boone MR#: [id number] : 1955 Acct:[id number] Age/Sex: 64 / F ADM Date: 05/04/20 Loc: Room: [address] [place] [address] Type: ADM IN Attending Dr: Jim Locke MD Ordering Provider: Agustin Golden DO Date of Service: 05/04/20 XR/XR chest 1V portable: COVID pneumonia Copies to: MD Agustin Fernando, PORTABLE AP ERECT CHEST 1634 hours CLINICAL HISTORY: Follow-up COVID pneumonia COMPARISON: 05/02/2020 Assessment is slightly limited by large body habitus. The heart is mildly prominent. The aorta is ectatic. There are groundglass infiltrates involving the lungs bilaterally. Comparison is slightly limited by differences in technique though there may be some worsening on the right. The costophrenic angles are clear. No pneumothorax is visualized. There is mild end plate spurring at the spine. XR/XR chest 1V portable IMPRESSION: CARDIOMEGALY AND AORTIC ECTASIA. BILATERAL INFILTRATES, POSSIBLY SLIGHTLY WORSE. Impression dictated by: Salud Yarbrough M.D.05/04/2020 4:38 PM Dictation Location: [place] [address] Transcribed By: [facility] 05/04/20 1638 Dictated By: Salud Yarbrough MD 05/04/20 1636 Signed By: 05/04/20 1638 [facility] Physical Rehabilitation Offi ce/Clinic Noon 12-27-2017 Physical Rehabilitation Office/Clinic No EMG/NCS of the RUE completed today. Please see report. Electronically signed by Emiliano Kincaid MD 12/27/17 13:42 EST [facility] Physical Rehabilitation Offi ce/Clinic Noon 11-13-2017 Physical Rehabilitation Office/Clinic No EMG/NCS of the RUE was not completed today secondary to patient continued hypertension. Pt will see her primary physician on 11/15, will call back to reschedule after adjustment to medications.Nohemy louise signed by Emiliano Kincaid MD 11/13/17 08:51 EDT Normal [facility] Physical Rehabilitation Offi ce/Clinic Noon 10-24-2017 Physical Rehabilitation Office/Clinic No EMG/NCS of the RUE was not completed today secondary to patient elevated BP. Pt did not take meds today, notes BP has been recently increased. She will see primary physician tomorrow, EMG/NCS rescheduled in 2 weeks.Electronically signed by Emiliano Kincaid MD 10/24/17 13:25 EDT Normal [facility] ED Noteon 08-11-2017 HIM IP Note OR [employer] Normal [facility] ED Provider Noteon 8 HIM IP Note OR [employer] Normal [facility] XR SHOULDER RIGHT (MIN 2 VIE WS)on 08-11-2017 XR SHOULDER RIGHT (MIN 2 VIEWS) FINAL REPORTEXAM: XR SHOULDER RIGHT (MIN 2 VIEWS)HISTORY: Pain no injury TECHNIQUE: Three views right shoulder were performedComparison: NoneFINDINGS: Right humeral head appears to be have a trough sign medially. The AP shows what appears to be normal glenohumeral relation. Recommend axillary or scapular Y-view. No fracture.IMPRESSION: Impression: There appears to be trough sign of the medial humeral head without definite fracture or full posterior dislocation. There may be subluxation. Recommend axillary or scapular Y-view.ADDENDUM FINAL REPORTAddendum: Axillary Y-view was performed which shows normal positioning of the humeral head over the glenoid. There does still appear to be a trough sign of the humeral head suggesting previous dislocation with impaction injury but no current dislocation. Interpreted by:KIZZY Antonioigned by:Lillie Link MD08/11/17Edited Result - FINAL Normal [facility] Encounters Encounter Date Encounter Type Care Provider Facility Start: 01-13-2024 End: 01-13-2024 ambulatory [facility] Start: 06-10-2023 ambulatory [facility] Start: 06-04-2023 End: 06-05-2023 ambulatory LIOR GILLIAM Facility:[facility] Start: 01-25-2023 End: 01-25-2023 ambulatory [facility] Start: 12-03-2022 End: 12-04-2022 ambulatory LIOR GILLIAM Facility:[facility] Start: 10-26-2022 End: 01-29-2023 ambulatory LIOR GILLIAM Facility:[facility] Start: 09-12-2021 End: 09-13-[address] LIOR GILLIAM Facility:[facility] Start: 07-19-2021 End: 07-19-[address] LIOR GILLIAM Facility:[facility] Start: 07-15-[address] DOCTOR PRATHER Facility :[facility] Start: 12-19-2020 End: 12-19-2020 ambulatory BRIANNE LOPEZ Facility:[facility] Start: 10-12-2020 End: 10-13-2020 ambulatory AIDEN JENKINS Facility:[facility] Start: 10-10-2020 End: 10-11-[address] DOCTOR PRATHER Facility:[facility] Start: 10-06-2020 End: 10-07-2020 ambulatory AIDEN JENKINS Facility:[facility] Start: 09-19-[address] LIOR GILLIAM Facility :[facility] Start: 12-27-2017 End: 12-28-2017 Patient encounter procedure EMILIANO KINCAID Facility:[facility] Start: 11-27-2017 Patient encounter procedure EMILIANO KINCAID Facility:[facility] Start: 11-13-2017 End: 11-14-2017 Patient encounter procedure EMILIANO KINCAID Facility:[facility] Start: 10-24-2017 End: 10-25-2017 Patient encounter procedure EMILIANO KINCAID Facility:[facility] Start: 09-03-2017 Patient encounter procedure EMILIANO KINCAID Facility:[facility] Start: 08-11-2017 End: 08-11-2017 Emergency department patient visit LIOR GILLIAM [facility] Procedures Date Procedure Procedure Detail Performing Clinician Start: 05-04-2020 Antibody screen Comment on above: Result Comment: PERF ORMED BY: [facility] [address] [place] [address] PATHOLOGIST [employer]Y CARDOZO M.D. Start: 08-11-2017 Slings LIOR Parra Start: 08-11-2017 Radex shoulder compl ete minimum 2 views LIOR GILLIAM Payers Date Payer Category Payer Unknown [id number] 2014 Unknown [id number] 2006 Unknown 1959 Medicaid [id number] 1959 Self-pay [id number] 1955 Unknown [id number] 2.16.8 [id number] 1955 Unknown [id number] 2.16.8 40.1.552785.3.579.2.196 1955 Unknown [id number] 2.16.8 40.1.788116.3.579.2.196 1955 Unknown [id number] 2.16.8 40.1.160160.3.579.2.196 1955 Unknown [id number] 2.16.84 0.1.707424.3.579.2.593 1955 Unknown [id number] 2.16.84 0.1.524641.3.579.2.593 1955 Unknown [id number] 2.16.84 0.1.209054.3.579.2.593 1955 Unknown [id number] 2.16.84 0.1.791637.3.579.2.593 1955 Unknown [id number] 2.16.84 0.1.580168.3.579.2.593 1955 Unknown [id number] 2.16.84 0.1.720620.3.579.2.593 1955 Unknown [id number] 2.16.84 0.1.328585.3.579.2.593 1955 Unknown [id number] 2.16.84 0.1.904351.3.579.2.593 1955 Unknown [id number] 2.16.8 40.1.451427.3.579.2.718 1955 Unknown [id number] 2.16.8 40.1.989954.3.579.2.718 1955 Unknown [id number] 2.16.8 40.1.411674.3.579.2.718 Progress note 01-13-2024 Note Date & Type Note Facility 01-13-2024 Note Orthopedic Surgery Subjective Chief complaint: Chief Complaint Patient presents with Left Knee - Pain, Follow-up 01/13/2024 Radha Boone is a 68 y.o. female presenting today for 7 month follow up of left knee arthritis. Today she reports continued intermittent episodes of left knee pain that occur in the setting of walking. The episodes are described as locking and catching with associated weakness. The pain improves with rest but sometimes occurs at night as well. She denies numbness, tingling, fevers, SOB, leg swelling, and chills. She has a history of diabetes which she reports is resolved since gastric bypass surgery. She denies cardiac or smoking hx. Today she is interested in a TKA of the left knee. She has tried physical therapy and injections which have not improved her pain. 06/10/23 Radha Boone is a 67 y.o. year old female presenting for evaluation of left medial knee arthritis. Patient has been doing well following her right primary posterior stabilized total knee arthroplasty and is here for planning her left knee arthroplasty. Patient has tried nonsurgical treatment including cortisone injections as well as oral pain medications for her left knee joint which have not been helping her. Patient wants to plan her left knee arthroplasty as soon as possible. Patient denies any new trauma. She localizes pain on the medial as well as lateral joint line of the left knee joint. She has occasional instability of the left knee joint. Patient with a complex medical history including anxiety, cardiomegaly, congestive heart failure, chronic venous insufficiencies, diabetes mellitus type 2, GERD, depression, cervical spinal disease, previous gastric bypass surgery for class III obesity, current class III obesity with a BMI of almost 40, hyperlipidemia, rheumatoid arthritis, hypothyroidism, hypertension, peripheral edema, sleep apnea, venous stasis and ulcers. Patient History Past Surgical History: Procedure Laterality Date BUNIONECTOMY Bilateral CERVICAL SPINE SURGERY x3 SECTION, CLASSIC x3 COLONOSCOPY CYST REMOVAL Left ARM GASTRIC BYPASS HYSTERECTOMY UPPER GASTROINTESTINAL ENDOSCOPY Past Medical History: Diagnosis Date Anxiety Cardiomegaly Cervical disc disease CHF (congestive heart failure) (CMS/HCC) Chronic venous insufficiency Depression Diabetes mellitus (CMS/HCC) ZAVALA (dyspnea on exertion) Dysphagia Eczema GERD (gastroesophageal reflux disease) Hallux valgus NANCY Hiatal hernia Hyperlipidemia Hypertension Hypothyroid OA (osteoarthritis) Obesities, morbid (CMS/HCC) Peripheral edema RA (rheumatoid arthritis) (CMS/HCC) Sleep apnea Venous ulcer (CMS/HCC) Objective General: Body mass index is 43.9 kg/m???. No acute distress, comfortable Respiratory: Unlabored breathing with normal rate, no cough Cardiovascular: Warm well perfused extremities Psych: Appropriate mood behavior Left Knee: Genu varum deformity noted. Patient does have lateral maltracking patella of the left knee joint. Patient walks with lateral thrust as well as positive drainable dosage. She has central obesity as well. Inspection of the knee revealed no edema or erythema Palpation of the knee revealed moderate tenderness over the medial joint line. No warmth or swelling. Sensation: Light touch sensation grossly intact bilaterally equally in the lower extremities Motion: ROM 10-125 degrees Stability: Varus and valgus stress of the knee revealed pain but no laxity. Strength: - Hip flexion 4/5 - Knee flexion 5/5 - Knee extension 4/5 - Plantar flexion 5/5 - Dorsiflexion 5/5 Gait: Antalgic gait. Imaging personally reviewed: XR of the left knee revealed significant medial joint space narrowing consistent with osteoarthritis. These show progressive degenerative's of her left knee joint along with subchondral sclerosis and subchondral cyst formation noted. These were shown and explained to the patient. She also has some lateral maltracking patella. These were shown and explained to the patient. XR of the right knee 01/13/2024 revealed intact hardware without signs of loosening or fracture. X-rays reveal right primary total knee arthroplasty which is well aligned well-fixed without any complicating process. These were compared with previous x-rays. No new fracture or dislocation seen. Patient had x-rays in January 2023 and will need new x-rays when she comes back for her follow-up visit. X-rays of her left knee joint 3 views standing AP lateral and performed. Patient'S x-rays that were done in January 2023 were seen by myself which show the patient has severe tricompartmental degenerative arthritis of the left knee joint along with varus deformity and large osteophytosis noted with subchondral sclerosis and subchondral cyst formation noted in the left knee joint. Right knee joint shows right primary total kne (more content not included)... [facility] Progress note 06-10-2023 Note Date & Type Note Facility 06-10-2023 Note Orthopedic Surgery Subjective Chief complaint: Chief Complaint Patient presents with Left Knee - Pain, Follow-up 06/10/23 Radha Boone is a 67 y.o. year old female presenting for evaluation of left medial knee arthritis. Patient has been doing well following her right primary posterior stabilized total knee arthroplasty and is here for planning her left knee arthroplasty. Patient has tried nonsurgical treatment including cortisone injections as well as oral pain medications for her left knee joint which have not been helping her. Patient wants to plan her left knee arthroplasty as soon as possible. Patient denies any new trauma. She localizes pain on the medial as well as lateral joint line of the left knee joint. She has occasional instability of the left knee joint. Patient with a complex medical history including anxiety, cardiomegaly, congestive heart failure, chronic venous insufficiencies, diabetes mellitus type 2, GERD, depression, cervical spinal disease, previous gastric bypass surgery for class III obesity, current class III obesity with a BMI of almost 40, hyperlipidemia, rheumatoid arthritis, hypothyroidism, hypertension, peripheral edema, sleep apnea, venous stasis and ulcers. Patient History Past Surgical History: Procedure Laterality Date BUNIONECTOMY Bilateral CERVICAL SPINE SURGERY x3 SECTION, CLASSIC x3 COLONOSCOPY CYST REMOVAL Left ARM GASTRIC BYPASS HYSTERECTOMY UPPER GASTROINTESTINAL ENDOSCOPY Past Medical History: Diagnosis Date Anxiety Cardiomegaly Cervical disc disease CHF (congestive heart failure) ([facility]) Chronic venous insufficiency Depression Diabetes mellitus (CMS/HCC) ZAVALA (dyspnea on exertion) Dysphagia Eczema GERD (gastroesophageal reflux disease) Hallux valgus NANCY Hiatal hernia Hyperlipidemia Hypertension Hypothyroid OA (osteoarthritis) Obesities, morbid (CMS/HCC) Peripheral edema RA (rheumatoid arthritis) (CMS/HCC) Sleep apnea Venous ulcer (CMS/HCC) Objective General: Body mass index is 43.9 kg/m???. No acute distress, comfortable Respiratory: Unlabored breathing with normal rate, no cough Cardiovascular: Warm well perfused extremities Psych: Appropriate mood behavior Bilateral knee joints were examined and compared: Left knee joint examined: Varus deformity, tenderness over the medial as well as lateral joint laterally, positive stiffness, limited range of motion to extension -5 degrees, flexion possible to about 85 to 90 degrees, anterior posterior drawer's test negative, Kenneth's test is equal patient walks with lateral thrust as well as pain in the lower extremity weakness in the hip abductors, trophic changes noted in the lower extremity with ambulation suggestive of peripheral vascular disease or diabetic peripheral neuropathy, patient has limited strength of her quadriceps and her hamstrings with power of her lower 3-4 out of 5, no calf swelling or tenderness noted, no signs of new tenderness recently, new neurological deficit seen. Distal pulses are intact. No ulceration of the left lower extremity noted at this point in time with onsetprevious venous stasis noted. Right knee joint: Incision from previous surgery has healed well, no signs of any infection or inflammation seen, tenderness is negative, minor paresthesia around the incision site noted, full extension noted which is active, flexion possible to 105 degrees patient walks without antalgia on the right side. Trophic changes of the skin noted. Signs of diabetic peripheral neuropathy. Both the lower extremities, most signs of any new neurological deficit seen. Ankle and toe range of motion well-maintained. Imaging personally reviewed: Patient had x-rays in January 2023 and will need new x-rays when she comes back for her follow-up visit. X-rays of her left knee joint 3 views standing AP lateral and performed. Patient'S x-rays that were done in January 2023 were seen by myself which show the patient has severe tricompartmental degenerative arthritis of the left knee joint along with varus deformity and large osteophytosis noted with subchondral sclerosis and subchondral cyst formation noted in the left knee joint. Right knee joint shows right primary total knee arthroplasty well aligned well-fixed without any complicating process. Assessment/Plan Radha Boone is a 67 y.o. year old female with Primary osteoarthritis of left knee S/P total knee arthroplasty, right Class 3 obesity with alveolar hypoventilation and body mass index (BMI) of 45.0 to 49.9 in adult, unspecified whether serious comorbidity present (CMS/[facility]) Genu varum of left lower extremity Patient was explained that she does have severe degenerative arthritis of her left knee joint, and we will plan for close left primary cemented posterior stabilized total knee arthroplasty. The patient is s/p right knee arthroplasty s (more content not included)... [facility] Progress note 01-25-2023 Note Date & Type Note Facility 01-25-2023 Note Orthopedic Surgery Subjective Post-op of the Right Knee and Pain of the Left Knee 01/25/23 Radha Boone is a 67 y.o. female here 15 wks post-op s/p right TKA (DOS: 10/03/22). She says she's been doing well overall but does have tightness in the right knee over the patella. She has been following up with PT, her ROM flexion 120 degrees. Able to ambulate without assistive device. No OTC medications regularly, but does take tylenol on occasion. She recently tripped over her grandsons shoe, he caught her, but its hurt ever since. This happened 3-4 weeks ago. She has popping, no locking 10/19/22 Radha Boone is a 67 y.o. female here 2 wks post-op s/p right TKA (DOS: 10/03/22). She says she's been doing well overall. She has been following up with PT and she reports that they said that she is able to do 110 degrees flexion on the knee. She has been improving very well. She says that she still has pain on her R knee, but only has 4 tablets left of her Percocet. She reports she takes one during the morning and one during the evening. The Percocet has helped with the pain. She also takes Tylenol for the pain with some pain relief. She has started ambulating with a walker. 09/28/22 Radha Boone is a 66 y.o. female here for her pre-op appointment for a right TKA. She obtained clearance from her primary care doctor. Her pain is the same. No new medical conditions or medications 07/27/2022 Radha Boone is a 66 y.o. female presenting for evaluation of bilateral knee pain that began a couple of years ago. Radha states that the pain began in both knees around the same time but that the R has become worse than the L. Her pain varies with her activity level but can be achey at times and sharp at others. Her most significant exacerbating factor is going up and down the stairs. She has tried a variety of things for pain control including Voltaren, tylenol, Biofreeze, PT, and braces. She has also received Synvisc injections with the last one in April but they did improve her symptoms. She has a constant baseline pain of a 6/10 but her pain can get as severe as 9/10. 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 She lives in a multilevel home with her daughter and grandchildren that requires her to go up and down the stairs each day to reach her bedroom. In addition to her pain, she has also noticed some swelling of both knees and ankles as well as some skin rash of the of the bilateral lower legs that is managed by her Hydrotherapist. She denies any numbness or tingling or hip pain. Regarding her history, Radha reports that her diabetes greatly improved following her gastric bypass surgery such that she no does not require medical management. Since her gastric bypass, she has lost over 50lbs with her current stated weight at 249lbs. She takes a baby aspirin daily. Review of Systems unremarkable aside from what is noted in HPI Patient History Past Surgical History: Procedure Laterality Date BUNIONECTOMY Bilateral CERVICAL SPINE SURGERY x3 SECTION, CLASSIC x3 COLONOSCOPY CYST REMOVAL Left ARM GASTRIC BYPASS HYSTERECTOMY UPPER GASTROINTESTINAL ENDOSCOPY Past Medical History: Diagnosis Date Anxiety Cardiomegaly Cervical disc disease CHF (congestive heart failure) (CMS/HCC) Chronic venous insufficiency Depression Diabetes mellitus (CMS/HCC) ZAVALA (dyspnea on exertion) Dysphagia Eczema GERD (gastroesophageal reflux disease) Hallux valgus NANCY Hiatal hernia Hyperlipidemia Hypertension Hypothyroid OA (osteoarthritis) Obesities, morbid (CMS/HCC) Peripheral edema RA (rheumatoid arthritis) (CMS/HCC) Sleep apnea Venous ulcer (CMS/HCC) Social: - tobacco: denies - EtOH: denies - recreational drugs: denies Objective General: There is no height or weight on file to calculate BMI. No acute distress, comfortable Respiratory: Unlabored breathing with normal rate, no cough Cardiovascular: Warm well perfused extremities Psych: Appropriate mood behavior Right Knee: Inspection- incision healing well. No drainage. Patella tracks normally. Knee stable in all directions. Knee ROM: Extension- 0??? Flexion- 120??? Left Knee: Inspection- incision healing well. No drainage. Patella tracks normally Knee stable in all directions Knee ROM: Extension- 0??? Flexion- 120??? Strength: Biulat hip flexion, left knee extension, flexion 5/5, left knee strength 4/5 flexion ext limited due to pain Sensation: intact over superficial peroneal, deep peroneal and tibial nerve distributions. Numbness over lateral knee only No signs of neurological deficits seen. Ankle and toe range of motion well-maintained. Imaging personally reviewed independently interpreted: XR right knee 01/25/23: well-placed total knee replacement implant, well aligned and fixed without any complications XR left knee 01/25/23: No acute (more content not included)... [facility] Medication management note 10-29-2022 Note Date & Type Note Facility 10-29-2022 Note [id number] [facility] Clinical Note 07-19-2021 Note Date & Type Note Facility 07-19-2021 Note The [place], [place] NAME: RADHA BOONE DATE OF : MEDICAL REC#: [id number] WOOD TANK BUILDER: [id number] [facility], TRANS[facility]MIT DATE: 07/19/2021 09:36:00 RO[address] GANG SUPERVISOR DATE: 07/20/2021 01:00 DICTATING PHYSICIAN: IVONE CAMPBELL DICTATION DATE: 07/19/2021 12:00 OPERATIVE NOTE OPERATION DATE: 07/19/2021 PREOPERATIVE DIAGNOSIS: Anemia. POSTOPERATIVE DIAGNOSIS: Redundant colon. PROCEDURE: Colonoscopy to cecum. SURGEON: Ivone Campbell M.D. ANESTHESIA: Monitored anesthesia care. ESTIMATED BLOOD LOSS: Zero. INDICATIONS AND CONSENT: Patient is a 65-year-old female recently found to have mild iron deficiency anemia. Indications, risks, benefits, alternatives of proceeding with colonoscopy were explained extensively to the patient, including the risks of bleeding, colon perforation or anesthetic complications. All of her questions were answered. Informed consent was obtained. PROCEDURE: Patient brought to the operating room, placed in the left lateral decubitus position. Rectal exam was performed which showed no masses or blood. The scope was inserted into the anal canal. Under direct visualization was advanced. With the aid of abdominal compression and positional changes, it was advanced to the cecum where cecal markings were clearly identified. Upon withdrawal of the scope, mucosal surfaces were carefully examined. There was noted to be redundancy of the colon. No mass lesions or polyps. Prep was good. No inflammatory changes or ulcerations. There was mild sigmoid diverticulosis without inflammatory changes or scarring. The scope was retroflexed in the anal canal. There was note to be no significant hemorrhoidal disease. Scope was then withdrawn. Patient tolerated procedure well, was sent to recovery room in good condition. recommend screening colonoscopy in 10 years. CC: Lior Gilliam M.D. Electronically Authenticated and Edited by: Ivone Campbell MD on 07/20/2021 12:59 PM EDT IFC Signed and Approved by: DR IVONE CAMPBELL . 07/20/2021 12:59:00 [facility] Clinical Note 06-22-2021 Note Date & Type Note Facility 06-22-2021 Note Chief Complaint consultation for low iron HPI Staff 65 year old female presents on consultation from Dr. Gilliam for low iron. Labs dated 05/24 with iron 64, TIBC 374, Iron Sat 17, Ferritin 11, HGB 13.1 and HCT 41.2. She is 6 months post bariatric surgery. Denies dizziness, lightheaded or SOB. Denies rectal bleeding. No previous colonoscopy. History of Present Illness 65 yo female with h/o htn, DMII, ABDELRAHMAN, rheumatoid arthritis, hypercholesterolemia, hypothyroidism, chronic back pain, referred for iron deficiency; h/o gastric bypass 6 months ago; denies change in bms or blood in stools, no abdominal complaints; last colonoscopy over 10 years ago; abdominal operations also significant for x 3, tubal ligation and TAURUS; on regular asa daily, no NSAIDs, no SBE prophylaxis; no fmhx of GI malignancy or IBD; no tobacco use. Review of Systems PHQ Score Initial Depression Screen Score: 0 ROS - Provider Constitutional: no fever, no sweats, no weight loss. Eyes: no glasses, no blurred vision, no visual loss. ENMT: no dentures, no hoarseness, no swallowing difficulties, no hearing loss, no ear infection(s), no nose bleeds. Cardiovascular: normal blood pressure, no chest pain, regular heartbeat, no heart murmur. Respiratory: no shortness of breath, no cough, no asthma, no wheezing. Gastrointestinal: no nausea, no vomiting, no diarrhea, no constipation, no blood in stool, no change in bowel habits, no abdominal pain, no hepatitis. Genitourinary: no kidney stones, no urine infection, no dysuria. Musculoskeletal: yes pain, no weakness. Skin: no changing moles, no rash, no skin lumps. Neurologic: no seizures, no epilepsy, no headache. Psychiatric: no emotional or psychiatric problem. Heme/Lymph: no bleeding problems, no anemia, no blood clots, no transfusions. Allergy/Immunologic: no swollen lymph nodes/glands, no IV drug abuse. Other: Additional ROS info: Except as noted in the above Review of Systems and in the History of Present Illness, all other systems have been reviewed and are negative or noncontributory. Physical Exam Vitals & Measurements HR: 84(Peripheral) RR: 16 BP: 126/84 HT: 160.0 cm HT: 160.02 cm WT: 121.9 kg WT: 121.9 kg BMI: 47.61 HEENT: normal conjunctiva, sclera clear, no scleral icterus, EOM intact, PERRLA, oral mucosa moist without lesions. Neck: trachea midline, no mass, symmetric, no thyromegaly or nodules, no adenopathy Respiratory: lungs CTA, respirations non labored. Cardiovascular: regular rate and rhythm, no murmur, no pedal edema or varicosities. Gastrointestinal: obese, soft, non distended, no tenderness, no masses, no palpable hernias, diastasis recti yes, no hepatosplenomegaly; normal bs Lymphatic: no cervical adenopathy, Musculoskeletal: abnormal gait, digits and nails without infection, nodes, cyanosis, clubbing. Skin: no rashes, no lesions, no ulcers, no subcutaneous nodules, induration. Psychiatric/Neuro: oriented to time, place, person, judgement normal, affect appropriate for age, insight intact, no focal deficits. Tests: labs reviewed, review of old records completed, Discussed surgical options, risks, and possible complications with patient. Assessment/Plan 1. Iron deficiency (E61.1: Iron deficiency) plan colonoscopy under anesthesia, informed consent obtained. 2. BMI 45.0-49.9, adult (Z68.42: Body mass index [BMI] 45.0-49.9, adult) recommend diet and exercise. Follow-up No qualifying data available Problem List/Past Medical History Ongoing Anxiety and depression Back pain, chronic BMI 45.0-49.9, adult Cervical disc disease Chronic laryngitis Congestive heart failure Diabetes Dyshidrotic eczema Dysphagia GERD (gastroesophageal reflux disease) HTN (hypertension) Hypercholesterolemia Hypothyroidism Iron deficiency Migraine headache Obesity ABDELRAHMAN (obstructive sleep apnea) Rheumatoid arthritis Historical No qualifying data Procedure/Surgical History Gastric bypass (12/13/2020), section (08/28/1985), section (03/11/1979), section (02/16/1975), Excision of ganglion cyst, Excision of tumor of ankle area, deep, intramuscular, History of cervical spine surgery, TAURUS - Total abdominal hysterectomy, Tubal ligation. Medications aripiprazole 5 mg Tab, 5 mg= 1 tab(s), Oral, Daily aspirin 325 mg Oral EC Tab, 325 mg= 1 tab(s), Oral, Daily carvedilol 25 mg Tab, 25 mg= 1 tab(s), Oral, BID duloxetine 60 mg Cap-DR, 1 cap(s), Oral, Daily hydrOXYzine hydrochloride 25 mg Tab, 25 mg= 1 tab(s), Oral, QID, PRN Iron 100 Plus oral tablet, 1 tab(s), Oral, BID levothyroxine 150 mcg (0.15 mg) Tab, 150 mcg= 1 tab(s), Oral, Daily Pantoprazole [address] Tab, 40 mg= 1 tab(s), Oral, Daily Allergies Augmentin (Anaphylactic reaction) Bee Stings (Hives) Social History Alcohol - Denies Alcohol Use, 06/16/2021 Substance Abuse - Denies Substance Abuse, 06/16/2021 Tobacco Never (less than 100 in lifetime) Tobacco Use:. Never Smok (more content not included)... [facility] Comment on above: Result Comment: Elec tronically Signed By: FRED GÓMEZ, Ivone Castillo\Date and Time Signed: 06/22/21 16:23 EDT Summary Purpose Family History No Family History Records FoundNo Family History Records FoundNo Family History Records FoundNo Family History Records FoundNo Family History Records FoundNo Family History Records FoundNo Family History Records FoundNo Family History Records Found Advance Directives No Advanced Directives Records FoundNo Advanced Directives Records FoundNo Advanced Directives Records FoundNo Advanced Directives Records FoundNo Advanced Directives Records FoundNo Advanced Directives Records FoundNo Advanced Directives Records FoundNo Advanced Directives Records Found Additional Source Comments INFORMATION SOURCE (unrecogn ized section and content) DATE CREATED AUTHOR 08/11/2017 [facility] DATE CREATED AUTHOR AUTHOR'S ORGANIZ ATION 01/20/2018 [facility] DATE CREATED AUTHOR AUTHOR'S ORGANIZ ATION 02/19/2021 [facility] DATE CREATED AUTHOR AUTHOR'S ORGANIZ ATION 05/02/2021 [facility] DATE CREATED AUTHOR AUTHOR'S ORGANIZ ATION 08/10/2021 [facility] DATE CREATED AUTHOR AUTHOR'S ORGANIZ ATION 09/16/2021 [facility] DATE CREATED AUTHOR AUTHOR'S ORGANIZ ATION 06/22/2023 [facility] DATE CREATED AUTHOR AUTHOR'S ORGANIZ ATION 01/14/2024 [facility] FOR RECORDS PERTAINING TO PATIENTS WHO ARE OR HAVE BEEN ENROLLED IN A CHEMICAL DEPENDENCY/SUBSTANCEABUSE PROGRAM, SOME INFORMATION MAY BE OMITTED. This clinical summary was aggregated from multiple sources. Caution should be exercised in using it in the provision of clinical care. This summary normalizes information from multiple sources, and as a consequence, information in this document may materially change the coding, format and clinical context of patient data. In addition, data may be omitted in some cases. CLINICAL DECISIONS SHOULD BE BASED ON THE PRIMARY CLINICAL RECORDS. [facility]. provides no warranty or guarantee of the accuracy or completeness of information in this document.
--- NOTE | 2024-01-24 09:01 | CA_ITS ---
Patient Name: RADHA BOONE MR#: [id number] : 1955 Exam Date: 01/24/2024 Ordering Doctor: DR Mo Gilliam . ECHOCARDIOGRAM REPORT PROCEDURE: CA ECHO DOPPLER COMPLETE INDICATIONS: ABDELRAHMAN, Uncontrolled HTN COMPARISON: None. DESCRIPTION: COMPLETE ECHOCARDIOGRAM Real-time transthoracic echocardiography with 2D, M-mode, spectral and color flow Doppler performed. QUALITY: Technical quality was good. LEFT VENTRICLE: Normal chamber size. Moderate concentric left ventricular hypertrophy. Global left ventricular systolic function is normal. LV EF: Visual estimation of left ventricular ejection fraction is 55%. DIASTOLIC: Diastolic function is indeterminate. ATRIAL SEPTUM: LEFT ATRIUM: Mild dilatation. RIGHT ATRIUM: Mild dilatation. RIGHT VENTRICLE: Normal chamber size. Normal right ventricular systolic function. TRICUSPID VALVE: Normal mobility and thickness. No stenosis with trivial regurgitation. No evidence of pulmonary hypertension. RVSP 27 mmHg MITRAL VALVE: Normal mobility and thickness. No evidence of mitral valve stenosis. There is no mitral annular calcification. No mitral regurgitation. AORTIC VALVE: Normal trileaflet appearance. No visible sclerosis. Normal leaflet mobility. No evidence of aortic valve stenosis. No aortic regurgitation. AORTIC ROOT: Normal diameter and appearance. PULMONIC VALVE: Normal thickness and mobility. No stenosis. Trivial regurgitation. PERICARDIUM: No evidence of pericardial effusion. IVC: Collapses with inspirations. Normal size. PLEURA: CONCLUSION: 1. Moderate concentric left ventricular hypertrophy with normal systolic function. Estimated LVEF is 55%. 2. Normal right ventricular size and systolic function. 3. No significant valvular dysfunction. 4. Normal right-sided pressures. Adult Echocardiography Procedure Report Left Ventricle LVEDD (3.7 - 5.6 cm): 4.03 cm LVESD (2.2 - 4.0 cm): 2.60 cm LVIVS thickness (0.6 - 1.2 cm): 1.45 cm LVPW thickness (0.5 - 1.0 cm): 1.49 cm e': 0.07 m/s E - e': 8.83 LVOT Max Gradient: 2.26 mm[Hg] LVOT Area (cm2): 0.75 m/s Peak Velocity (LVOT): 0.75 m/s Mean Velocity (LVOT): 0.53 m/s LVOT Diameter 2.22 cm Left Ventricular Ejection Fraction: 55 % Left Atrium LA Volume Index (2D A2C): 39.80 ml/m2 Left Atrium Systolic Dimension: 3.87 cm Mitral Valve MV E to A Ratio: 0.85 Mitral Valve A-Wave Peak Velocity: 0.69 m/s Mitral Valve E-Wave Peak Velocity: 0.59 m/s Right Ventricle RV Internal Diastolic Dimension: 3.73 cm Aorta AO Root Diam: 3.45 cm Ascending Ao Diam: 3.29 cm Aortic Valve AoV Area (Peak Red): 2.58 cm2, 2.58 cm2 AoV Area (VTI): 2.33 cm2, 2.33 cm2 Peak Velocity(Antegrade Flow): 1.13 m/s Peak Gradient(Antegrade Flow): 5.08 mm[Hg] Mean Velocity(Antegrade Flow): 0.80 m/s Mean Gradient(Antegrade Flow): 2.84 mm[Hg] Velocity Time Integral: 23.41 cm Tricuspid Valve Peak Velocity (Regurgitant Flow): 2.23 m/s, 2.42 m/s, 2.37 m/s Pulmonic Valve Mean Gradient: 1.30 mm[Hg], 1.38 mm[Hg], 1.66 mm[Hg] Mean Velocity: 0.52 m/s, 0.53 m/s, 0.59 m/s Peak Velocity: 0.84 m/s Peak Gradient: 2.44 mm[Hg], 2.81 mm[Hg], 3.26 mm[Hg] Right Atrium Right Atrium Systolic Pressure: 44.49 ml, 44.49 ml Dictated by: José Garcia M.D. on 01/24/2024 at 17:44 Approved by: José Garcia M.D. on 01/24/2024 at 17:46
== END 2024-01-24 08:55 | disposition home or self-care (01) ==
LOC: CARD 08:54
PROVIDERS: PCP Family Medicine; Visit Provider Family Medicine
DX: G47.33 Obstructive sleep apnea (adult) (pediatric) (principal); I10 Essential (primary) hypertension
CPT/HCPCS: 93306

== ENCOUNTER 2025-01-27 09:10 | Outpatient (OUT) | payer MEDICARE, SELFPAY ==
--- OUTSIDE RECORDS SUMMARY | 2023-10-02 04:00 | XMS_ITS ---
Author Organization [facility] in [place] Address [address] [place] [address] Care Team Providers Care Plan Rep Name Role Phone Ron Gilliam Primary Care Provider Breezy Almanza Unavailable [phone] REASON FOR VISIT 1 YEAR-ABDELRAHMAN Encounters Encounter Location Date Provider Diagnosis Pulmonary Medicine [place] [address] [place] [address] 10/02/2023 Breezy Almanza Plan Of Treatment No Information Progress Notes * Heidi BOONE MDOB:[birth year] (69 yo F)Acc No.[id number]:10/02/2023 UNLOCKED PROGRESS NOTE Follow Up Patient: Heidi VALLES :?KATHIA GilbertOB:1955???Age:68 Y ???Sex:FemaleDate:10/02/2023hone:[phone]:[address], [address], [place], [id number]:Ron Gilliam Subjective: * Chief Complaints: * 1 . 1 YEAR-ABDELRAHMAN. * Medical History: Objective: * Vitals: Assessment: Plan: * Treatment: * * Electronic signature of Breezy Almazna DO on 01/27/2025 at 09:21 AM ESTSign off status: PendingVisit Status:?R/S (Rescheduled) * Provider: Ector Almanza DO Date: 0 10/02/2023 Generated for Printing/Faxing/eTransmitting on:?01/27/2025 09:21 AM EST
--- OUTSIDE RECORDS SUMMARY | 2023-11-05 04:00 | XMS_ITS ---
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 Name Role Phone Ron Gilliam Primary Care Provider [phone] Breezy Almanza Unavailable [phone] REASON FOR VISIT 1 YEAR-ABDELRAHMAN Encounters Encounter Location Date Provider Diagnosis Pulmonary Medicine [address] [address] 11/05/2023 Breezy Almanza Plan Of Treatment No Information Progress Notes * Heidi BOONE MDOB:[birth year] (69 yo F)Acc No.[id number]:11/05/2023 UNLOCKED PROGRESS NOTE Follow Up Patient: Heidi VALLES :?KATHIA GilbertOB:1955???Age:68 Y ???Sex:FemaleDate:11/05/2023hone:[phone]:[address], [address], [place], [id number]:Ron Gilliam Subjective: * Chief Complaints: * 1 . 1 YEAR-ABDELRAHMAN. * Medical History: Objective: * Vitals: Assessment: Plan: * Treatment: * * Electronic signature of Breezy Almanza DO on 01/27/2025 at 09:21 AM ESTSign off status: PendingVisit Status:?R/S By O/P (Rescheduled by Office/Provider) * Provider: Ector Almanza DO Date: 0 11/05/2023 Generated for Printing/Faxing/eTransmitting on:?01/27/2025 09:21 AM EST
--- OUTSIDE RECORDS SUMMARY | 2024-11-18 04:30 | XMS_ITS ---
Author Organization [facility] in [place] Address [address] [place] [address] Care Team Providers Care Marketing Community Liaison Name Role Phone Ron Gilliam Primary Care Provider Breezy Almanza Unavailable [phone] REASON FOR VISIT 1 YEAR-ABDELRAHMAN Encounters Encounter Location Date Provider Diagnosis Pulmonary Medicine [facility] [address] [place] [address] 11/18/2024 Breezy Almanza Plan Of Treatment No Information Progress Notes * Heidi BOONE MDOB:[birth year] (69 yo F)Acc No.[id number]:11/18/2024 UNLOCKED PROGRESS NOTE Follow Up Patient: Heidi VALLES :?KATHIA GilbertOB:1955???Age:69 Y ???Sex:FemaleDate:11/18/2024Phone:[phone]:[address], [address], [place], [id number]:Ron Gilliam Subjective: * Chief Complaints: * 1 . 1 YEAR-ABDELRAHMAN. * Medical History: Objective: * Vitals: Assessment: Plan: * Treatment: * * Electronic signature of Breezy Almanza DO on 01/27/2025 at 09:20 AM ESTSign off status: PendingVisit Status:?OFF CANC (OFFICE CANCEL) * Provider: Ector Almanza DO Date: 1 Generated for Printing/Faxing/eTransmitting on:?01/27/2025 09:20 AM EST
--- OUTSIDE RECORDS SUMMARY | 2025-01-25 03:26 | XMS_ITS ---
Author Organization [facility] [place] Address [address] [place] [address] Care Team Providers Care Cognos Administrator Name Role Phone Ron Gilliam Primary Care Provider [phone] REASON FOR VISIT yearly labs Encounters Encounter Location Date Provider Diagnosis [facility] [address] [place] [address] 01/25/2025 Ron Gilliam Chronic insomnia F51 .04 ; Uncontrolled hypertension I10 and Body mass index [BMI] 45.0-49.9, adult Z68.42 Assessments Encounter Date Diagnosis (ICD Code) Assessment Notes Treatment Notes Treatment Clinical Notes Section Notes 01/25/2025 Chronic insomnia (ICD-10 - F51.0 4) 01/25/2025Uncontrolled hypertension (ICD-10 - I10)01/25/2025ody mass index [BMI] 45.0-49.9, adult (ICD-10 - Z68.42) Plan Of Treatment Pending Test Test Name Order Date COMPREHENSIVE METABOLIC PROFILE WITH GFR 01/25/2025 OCCULT BLOOD, FECAL, IMMUNOASSAY 025 CBC W/AUTO DIFF 01/25/2025 GLYCOHEMOGLOBIN A1C 01/25/2025 THYROID PANEL (T4/TSH/FREE T3) Lipid Panel 01/25/2025 Progress Notes * Heidi BOONE MDOB:[birth year] (69 yo F)Acc No.[id number]:01/25/2025 Patient:?Heidi BOONE :1955???Age:69 Y???Sex:FemalePhone:[phone] Address:[address], [address], [place], [address] Subjective: * Chief Complaints: * Y early labs * Medical History: * Surgical History: * Hospitalization/Major Diagno stic Procedure: * Medications: Objective: * Vitals: * Physical Examination: ??? Assessment: * Assessment: 1.?Chronic insomnia - F51.04 (Primary)???2.?Uncontrolled hypertension - I10 ???3.?Body mass index [BMI] 45.0-49.9, adult - Z68.42??? Plan: * Treatment: ?LAB: COMPREHENSIVE METABOLIC PROFILE WITH GFR ?LAB: OCCULT BLOOD, FECAL, IMMUNOASSAY ?LAB: CBC W/AUTO DIFF ?LAB: GLYCOHEMOGLOBIN A1C ?LAB: THYROID PANEL (T4/TSH/FREE T3) ?LAB: Lipid Panel2.?Uncontrolled hypertension?LAB: COMPREHENSIVE METABOLIC PROFILE WITH GFR ?LAB: OCCULT BLOOD, FECAL, IMMUNOASSAY ?LAB: CBC W/AUTO DIFF ?LAB: GLYCOHEMOGLOBIN A1C ?LAB: THYROID PANEL (T4/TSH/FREE T3) ?LAB: Lipid Panel3.?Body mass index [BMI] 45.0-49.9, adult?LAB: COMPREHENSIVE METABOLIC PROFILE WITH GFR ?LAB: OCCULT BLOOD, FECAL, IMMUNOASSAY ?LAB: CBC W/AUTO DIFF ?LAB: GLYCOHEMOGLOBIN A1C ?LAB: THYROID PANEL (T4/TSH/FREE T3) ?LAB: Lipid Panel * Procedure Codes: * true * Date:?Generated for Printing/Faxing/eTransmitting on:?01/27/2025 09:21 AM EST
--- OUTSIDE RECORDS SUMMARY | 2025-01-27 09:21 | XMS_ITS | Patient Health Record ---
Author Organization [facility] [place] Address [address] [place] [address] Care Team Providers Care Food General Manager Name Role Phone Ron Gilliam Primary Care Provider [phone] Breezy Almanza Unavailable [phone] Allergies Allergen (clinical drug ingredient) Drug/Non Drug Allergy documented on EMR Reaction Allergy Type Onset Date Status amoxicillin / clavulanate Augmentin hives, SOB Drug Aller gy ActiveBee Stingtroubles breathing/ swellingAllergyActivePenicillinshortness of breathDrug AllergyActive Reason For Referral No Information Medications Medication SIG (Take, Route, Frequency, Duration) Notes Start Date End Date Status EpiPen 2-Bran 0.3 MG/0.3ML as directed Injection once ActivePantoprazole Sodium 40 MGTAKE 1 TABLET BY MOUTH ONCE DAILY; Duration: 30 ActiveOzempic (1 MG/DOSE) 4 MG/3MLINJECT 1MG SUBCUTANEOUSLY WEEKLY; Duration: 28 ActivecloNIDine HCl 0.1 MG1 tablet Orally bid; Duration: 30 days07/29/2023ctive hydrOXYzine HCl 25 MGTAKE 1 TABLET BY MOUTH FOUR TIMES DAILY NEEDED FOR 30 DAYS; Duration: 30ActiveQUEtiapine Fumarate 100 MGTAKE 1 & 1/2 (ONE & ONE-HALF) TABLETS BY MOUTH ONCE DAILY AT BEDTIME; Duration: 30ActiveDULoxetine HCl 60 MG TAKE TWO (2) CAPSULES BY MOUTH ONCE DAILY; Duration: 30 daysActiveAspirin Adult Low Dose 81 MG1 tablet Orally Once a dayActiveARIPiprazole 5 MGTAKE 1 TABLET BY MOUTH ONCE DAILY; Duration: 30ActivelevoFLOXacin 750 MG1 tablet Orally Once a day; Duration: 10 day(s)5ActiveIbuprofen 800 MG1 tablet with food or milk as needed Orally every 8 hrs5ActiveLevothyroxine Sodium 150 MCG TAKE 1 TABLET BY MOUTH EVERY MORNING ON EMPTY STOMACH; Duration: 30Active Immunizations Vaccine Route Administration Date Status Comme nts Arexvy Unknown 01/28/2023 Administered Comirnaty Pfizer Syringe Pre-Filled 30 mcg/0.3 sJGeyczew99/05/2024Administered Flu, Fluad (19665) 65 yrs + High Dose Seasonal (0975-5968)Hjyfgak2510/17/2023 AdministeredFlu, Fluad (41253) 65 yrs+, single-dose syringe (0033-7552)Unknown 2AdministeredPneumococcal (Prevnar 13)Wnxfybc8106/03/2021dministered Pneumococcal (Prevnar 20)Lwibemz77/23/2022AdministeredPneumococcal (Prevnar 20) Cehqfnp35/18/1959SpsglwrcusoePVCY-CIJ-0 (COVID 19 Pfizer 30mcg/0.3mL), jass zwpceytQdelzje55/12/2022AdministeredZOSTER (SHINGLES) VACCINE (HZV)Unknown 2AdministeredZOSTER (SHINGLES) VACCINE (HZV)Cpwhgvc9512/01/2021 Administered Social History Tobacco Use: Social History Observation Description Date Details (start date - stop date) Never Smoker NA - NA Tobacco Use/Smoking Question Answer Notes Patient is a nonsmoker Tobacco Control (Standard) Question Answer Notes Tobacco use: Nonsmoker AUDIT-C (Standard) Question Answer Notes Did you have a drink containing alcohol in the p ast year? No Tjprkk3SivhxhnegafftbKuiyiobc Problems Problem Type SNOMED Code ICD Code Onset Dates Problem Status W/U Status Risk Notes Problem Morbid obesity (disorder) (40850 6002) Morbid (severe) obesity due to excess calories (E66.01) ActiveconfirmedProblemObstructive sleep apnea (05440170)Obstructive sleep apnea (G47.33)ActiveconfirmedProblemChronic insomnia (426530850)Chronic insomnia (F51.04)ActiveconfirmedProblemOsteoarthritis of knee (074865861)Knee osteoarthritis (M17.9)ActiveconfirmedProblemHypertension (08996371)Uncontrolled hypertension (I10)ActiveconfirmedProblemModerate left ventricular hypertrophy (607037143)Moderate left ventricular hypertrophy (I51.7)ActiveconfirmedProblem Body mass index 40+ - severely obese (064860233)Body mass index [BMI] 45.0-49.9, adult (Z68.42)Activeconfirmed Vital Signs Blood pressure diastolic 82 mm Hg 05/01/2024 Sxjjbl88 in05/01/2024lood pressure enockbmj736 mm Hg05/01/20246850Fkjpig832 lbs 05/01/2024BMI48.65 kg/m205/01/2024 Encounters Encounter Location Date Provider Diagnosis [facility] [address] [place] [address] 05/01/2024 Ron Gilliam Morbid (severe) obes ity due to excess calories E66.01 ; Acute sinusitis J01.90 ; Acute non-recurrent sinusitis, unspecified location J01.90 and Nasal congestion R09.81 [facility] [address] [place] [address] 05/04/2024 Ron Gilliam [facility] [place] [address] 05/06/2024[facility] [place] [place] [facility] [place] [address]/04/2024[facility] [place] [place] [address]/Doug HoyObstructive sleep apnea G47.33[facility] [place] [place] [address]/05/2024Breezy Almanza [facility] [place] [address] 01/25/2025Doug HoyChronic insomnia F51.04 ; Uncontrolled hypertension I10 and Body mass index [BMI] 45.0-49.9, adult Z68.42 Assessments Encounter Date Diagnosis (ICD Code) Assessment Notes Treatment Notes Treatment Clinical Notes Section Notes 05/01/2024 Morbid (severe) obesity due to e xcess calories (ICD-10 - E66.01) 5Acute sinusitis (ICD-10 - J01.90)05/28/2024Obstructive sleep apnea (ICD-10 - G47.33)01/25/2025hronic insomnia (ICD-10 - F51.04)01/25/2025 Uncontrolled hypertension (ICD-10 - I10)01/25/2025ody mass index [BMI] 45.0- 49.9, adult (ICD-10 - Z68.42)5Acute non-recurrent sinusitis, unspecified location (ICD-10 - J01.90)Rest and drink more liquids, especially water. You may use a humidifier or vaporizer to help keep the drainage moist. Bbhv-wyy-dlbdldt Nasal Saline may help the stuffy and runny nose. Use Ibuprofen and or Tylenol as needed for fever, chills, body aches or pain. Children 5 years old should not be given jvvu-ibd-xhaeyis cough and cold medications such as guaifenesin and dextromethorphan. If you're over age 5, you may try vsqx-pjj-psgftni cold medications such as guaifenesin and dextromethorphan, or multi-symptom cold reliever such as Dayquil to help reduce the symptoms. Antibiotics have been prescribed. You should take these until completed and follow the directions. Antibiotics can sometimescause upset stomach, and in rare cases, serious allergic reactions or serious gastrointestinal problems. If you start having severe abdominal pain, severe vomiting, or bloody diarrhea, you should be reevaluated by your physician or urgent care immediately. Follow up with your Primary Care Provider or return to clinic if symptoms do not improve within 3-5 days05/01/2024Nasal congestion (ICD-10 - R09.81) Plan Of Treatment Pending Test Test Name Order Date CMP (COMPLETE METABOLIC PANEL) 4 CMP (COMPLETE METABOLIC PANEL) 4 HEMOGLOBIN A1C (GLYCO) 01/15/2024 IRON, TOTAL 01/15/2024 CBC WITH DIFF (EXP 12/2024) 01/15/2024 CARDIO Echocardiogram 01/15/2024 COMPREHENSIVE METABOLIC PROFILE WITH GFR 01/25/2025 OCCULT BLOOD, FECAL, IMMUNOASSAY 025 CBC W/AUTO DIFF 01/25/2025 CBC W/AUTO DIFF 06/03/2023 STOOL OCCULT BLOOD 06/03/2023 GLYCOHEMOGLOBIN A1C 06/03/2023 GLYCOHEMOGLOBIN A1C 01/25/2025 LIPID PROFILE 06/03/2023 THYROID PANEL (T4/TSH/FREE T3) 4 THYROID PANEL (T4/TSH/FREE T3) 4 THYROID PANEL (T4/TSH/FREE T3) 5 Lipid Panel 01/25/2025 Insurance Providers Payer Name Payer Address Payer Phone Subscriber Number Group Number Insured Name Patient Relationship to Insured Coverage Start Date Coverage End Date [facility] DU[facility] PRIMARY MEDICARE [address] [place] [id number] [facility] Heidi You Self - patient is the insured MEDICAID [place] [address] OFFICE OF [place], [place] [id number] [phone], SoniaSelf - patient is the insured Medical (General) History Medical History History ICD Code Anxiety F41.9 COVID-19 U07.1 Congestive heart failure I50.9 Cervical disc disease M50.90 Depression F32.A Dysphagia R13.10 GERD (gastroesophageal reflux disease) K 21.9 Eczema L30.9 Hypertension I10 Hypothyroidism E03.9 Insomnia G47.00 Laryngopharyngeal reflux K21.9 Obstructive sleep apnea G47.33 Pure hypercholesterolemia E78.00 Rheumatoid arthritis M06.9 DM2 (diabetes mellitus, type 2) E11.9 Chronic insomnia F51.04 Moderate left ventricular hypertrophy I5 1.7 Surgical History Surgery Date(Month/Year) left total knee replacement 03/2024 RTKA 2022 bunionectomy-bilateral Left Ankle Surgeryappendectomytonsillectomy and adenoidectomyTumor removal left legLeft Arm cyst removalNeck Surgery c1NBFYFUAHSIZK TOTALCESAREAN DELIVERY x3 Gastric Bypass - Dimple-en-Y102/2020
--- OUTSIDE RECORDS SUMMARY | 2025-01-27 09:21 | XMS_ITS | Clinical Summary ---
Author Organization [employer] tem Address [id number] [place] [address] Care Team Providers Care Stationary Engineer Refrigeration Name Role Phone Mo Gilliam MD Primary Care Provider [phone] Allergies Active AllergyReactionsCriticalityNoted DateCommentsBee PollenOther (See Comments)01/29/2014PenicillinsHives,Other (See Comments),Shortness Of BreathHigh 04/01/2012 Medications MedicationSigDispense QuantityRefillsLast FilledStart DateEnd DateStatus ARIPiprazole (ABILIFY) 5 mg tablet daily.Active carvediloL (COREG) 25 mg tablet carvedilol 25 mg tablet Take 1 tablet twice a day by oral route for 30 days.Active desvenlafaxine (PRISTIQ) 100 mg 24 hr tablet Take 100 mg by mouth.Active dexAMETHasone (DECADRON) 2 mg tablet 05/17/2020ctive diclofenac (VOLTAREN) 75 mg EC tablet Take 75 mg by mouth 2 (two) times a day.07/18/2020ctive DULoxetine (CYMBALTA) 60 mg capsule Take 60 mg by mouth daily.07/18/2020ctive etodolac (LODINE XL) 500 MG 24 hr tablet Take 500 mg by mouth.Active furosemide (LASIX) 40 mg tablet 06/12/2020ctive hydrALAZINE (APRESOLINE) 25 mg tablet daily.Active hydrOXYzine (ATARAX) 25 mg tablet hydroxyzine HCl 25 mg tabletActive insulin aspart U-100 (NovoLOG) 100 unit/mL (3 mL) insulin pen 06/12/2020ctive LEVEMIR FLEXTOUCH U-100 INSULN 100 unit/mL (3 mL) insulin pen INJECT 60 UNITS SUBCUTANEOUSLY DIRECTED IN THE MORNING AND 50 UNITS IN THE GVNWKGD4308/03/2020ctive ipratropium-albuteroL (DUO-NEB) 0.5 mg-3 mg(2.5 mg base)/3 mL nebulizer 06/12/2020ctive levothyroxine (SYNTHROID, LEVOTHROID) 100 MCG tablet Take 100 mcg by mouth.Active lisinopriL (PRINIVIL,ZESTRIL) 20 mg tablet Take 20 mg by mouth.Active meclofenamate (MECLOMEN) 100 MG capsule Take 100 mg by mouth 4 (four) times a day.Active metFORMIN (GLUCOPHAGE) 500 mg tablet metformin 500 mg tabletActive metOLazone (ZAROXOLYN) 2.5 mg tablet 06/22/2020ctive NYSTOP powder APPLY A SMALL AMOUNT TO SKIN TWICE DAILY07/20/2020ctive OLANZapine (ZyPREXA) 2.5 mg tablet Take 2.5 mg by mouth.Active pantoprazole (PROTONIX) 40 mg EC tablet Take 40 mg by mouth daily.07/18/2020ctive potassium chloride (KLOR-CON SPRINKLE) 10 MEQ CR capsule 05/18/2020ctive QUEtiapine (SEROquel) 25 mg tablet 06/16/2020ctive simvastatin (ZOCOR) 40 mg tablet Take 40 mg by mouth daily.07/18/2020ctive spironolactone (ALDACTONE) 100 mg tablet Take 100 mg by mouth daily.07/06/2020ctive tiZANidine (ZANAFLEX) 4 mg capsule Take 4 mg by mouth.Active Active Problems No known active problems Social History Tobacco UseTypesPacks/DayYears UsedDateSmoking Tobacco: NeverSmokeless Tobacco: NeverAlcohol UseStandard Drinks/WeekCommentsNot Currently0 (1 standard drink = 0.6 oz pure alcohol)ChildcareAnswerDate HpuylkswEzhqtjbbeZdyyzef31/11/2019 EmploymentAnswerDate ToykannjNemfmmncmtXvonznr49/11/2019Purpose - LifeAnswerDate RecordedPurpose and direction in kqbgLgpsnpq04/10/2021CommentsUnknownSex and Gender InformationValueDate RecordedSex Assigned at BirthNot on fileLegal RfaUdhomt00/04/2015 4:53 PM EDTGender IdentityNot on fileSexual OrientationNot on file Last Filed Vital Signs Vital SignReadingTime TakenCommentsBlood Sxvdlrsg915/5908 9:18 AM EDT Udvdi408009/28/2020 9:18 AM EDTTemperature--Respiratory Rate--Oxygen Saturation-- Inhaled Oxygen Concentration--Obiadc32.8 kg (220 lb)09/28/2020 9:18 AM EDTHeight 162.6 cm (5' 4 )09/28/2020 9:18 AM EDTBody Mass Index37.76009/28/2020 9:18 AM EDT Plan of Treatment Health MaintenanceDue DateLast DoneCommentsDepression Oidpzdudl92/20/1968Tobacco Rrkoqyeew60/20/1968Adult BMI Etmhhqbhl38/20/1974DTaP,Tdap and Td Vaccines (1 - Tdap)09/30/1974Zoster (Shingles) Vaccine (1 of 2)09/30/1974RSV ( or age 60+ yrs) (1 - Risk 60-74 years 1-dose series)2015Fall Risk Screening 09/30/2020Influenza Ieoroxt203/ Medical Devices Not on file Insurance Care Teams Team MemberRelationshipSpecialtyStart DateEnd Mo Gilliam MD [facility]
--- OUTSIDE RECORDS SUMMARY | 2025-01-27 09:21 | XMS_ITS | Clinical Summary ---
Author Organization [facility] Address [address] [place] [address] Care Team Providers Care Unit Trust Manager Name Role Phone Unavailable Primary Care Provider Unavailabl e Social History Tobacco UseTypesPacks/DayYears UsedDateSmoking Tobacco: Never Assessed CommentsUnknownSex and Gender InformationValueDate RecordedSex Assigned at Not on fileLegal OzqOgmltm93/15/2023 8:26 PM EDTGender IdentityNot on fileSexual OrientationNot on file Last Filed Vital Signs Vital SignReadingTime TakenCommentsBlood Bjpesgrn960/93053 12:00 PM EDT Pulse--Temperature--Respiratory Rate--Oxygen Saturation--Inhaled Oxygen Concentration--Powsik162 kg (293 lb)11/11/2017 12:00 PM TXZVhpcml202 cm (5' 3 ) 11/11/2017 12:00 PM EDTBody Mass Index51.91 12:00 PM EDT Plan of Treatment Not on file
--- OUTSIDE RECORDS SUMMARY | 2025-01-27 09:22 | XMS_ITS | Encounter Summary ---
Author Organization [facility] Address [address] [place] [address] Care Team Providers Care Car Spotter Name Role Phone Mo Gilliam MD Primary Care Provider [phone] Encounter Details DateTypeDepartmentCare Team (Latest Contact Info)Kbbwnefcgir32/26/2025Telephone [facility] [address] [place] [address] [place] [address] Salima Linares MA Social History Tobacco UseTypesPacks/DayYears UsedDateSmoking Tobacco: NeverSmokeless Tobacco: NeverAlcohol UseStandard Drinks/WeekCommentsNever0 (1 standard drink = 0.6 oz pure alcohol)[facility] UtilitiesAnswerDate RecordedIn the past 12 months has the electric, gas, oil, or water [place] threatened to shut off services in your home?03/30/2024Humiliation, Afraid, Rape, and Kick questionnaireAnswerDate RecordedWithin the last year, have you been afraid of your partner or ex-partner?No01/25/2023Within the last year, have you been humiliated or emotionally abused in other ways by your partner or ex-partner?No01/25/2023 Within the last year, have you been kicked, hit, slapped, or otherwise physically hurt by your partner or ex-partner?No01/25/2023Within the last year, have you been raped or forced to have any kind of sexual activity by your part ner or ex-partner?No01/25/2023UDIT-CAnswerDate RecordedQ1: How often do you have a drink containing alcohol?Never06/10/2023verage Number of DrinksNot on file06/10/2023Frequency of Binge DrinkingNot on file06/10/2023Overall Financial Resource Strain (CARDIA)AnswerDate RecordedHow hard is it for you to pay for the very basics like food, housing, medical care, and heating?Not very hard 06/10/2023HQ-2AnswerDate RecordedPatient Health Questionnaire-2 Score0 05/20/2024[facility] [place] [facility] Occup[facility] - Occupational Stress QuestionnaireAnswerDate RecordedDo you feel stress - tense, restless, nervous, or anxious, or unable to sleep at night because yourmind is troubled all the time - these days?Not at all06/10/2023Exercise Vital SignAnswerDate RecordedOn average, how many days per week do you engage in moderate to strenuous exercise (like a brisk walk)?0 days01/25/2023On average, how many minutes do you engage in exercise at this level?0 min01/25/2023UT Safety & EnvironmentAnswerDate RecordedWithin the last year, have you been afraid of your partner or ex-partner?No01/25/2023Within the last year, have you been humiliated or emotionally abused in other ways by your partner or ex-partner?No01/25/2023 Within the last year, have you been kicked, hit, slapped, or otherwise physically hurt by your partner or ex-partner?No01/25/2023Within the last year, have you been raped or forced to have any kind of sexual activity by your part ner or ex-partner?No01/25/2023hysically or Sexually AbusedNot on file01/25/2023 TransportationAnswerDate RecordedIn the past 12 months, has lack of transportation kept you from medical appointments or from getting medications?No 06/10/2023In the past 12 months, has lack of transportation kept you from meetings, work, or from getting things needed for daily living?No06/10/2023 Housing Stability Vital SignAnswerDate RecordedIn the last 12 months, was there a time when you were not able to pay the mortgage or rent on time?No01/25/2023 Number of Times Moved in the Last YearNot on file01/25/2023Homeless in the Last YearNot on file01/25/2023Hunger Vital SignAnswerDate RecordedWithin the past 12 months, you worried that your food would run out before you got the money to buy more.Never true01/25/2023Within the past 12 months, the food you bought just didn't last and you didn't have money to get more.Never true01/25/2023 CommentsNoSex and Gender InformationValueDate RecordedSex Assigned at BirthNot on fileLegal FglQfeluc82/29/2022 9:42 PM EDTGender IdentityNot on fileSexual OrientationNot on filedocumented as of this encounter Miscellaneous Notes * Telephone Encounter - Aaron Louie MA - 01/13/2025 2:26 PM EST UPLOADED IN [employer] * Telephone Encounter - Salima Linares MA - 01/06/2025 11:18 AM EST Pt requesting handicap placard. documented in this encounter Plan of Treatment Not on file documented as of this encounter Visit Diagnoses Not on filedocumented in this encounter Care Teams Team MemberRelationshipSpecialtyStart DateEnd Date Mo Gilliam MD [address] [facility] [place] [address] [address] PCP - [facility]10/19/22documented as of this encounter
--- OUTSIDE RECORDS SUMMARY | 2025-01-27 09:22 | XMS_ITS | Clinical Summary ---
Author Organization [facility] Address [address] [facility] [facility], [address] [place] [address] Care Team Providers Care Customer Care Associate Name Role Phone Mo Gilliam MD Primary Care Provider [phone] Allergies Active AllergyReactionsCriticalityNoted DateCommentsPenicillinsShortness Of YuiboyAcxt10/23/2013 Medications MedicationSigDispense QuantityRefillsLast FilledStart DateEnd DateStatus etodolac (LODINE XL) 500 MG SR tablet Take 500 mg by mouth 2 times daily.Active lisinopril (PRINIVIL;ZESTRIL) 20 MG tablet Take 20 mg by mouth daily.Active spironolactone (ALDACTONE) 50 MG tablet Take 50 mg by mouth daily.Active furosemide (LASIX) 40 MG tablet Take 40 mg by mouth 2 times daily.Active levothyroxine (SYNTHROID) 100 MCG tablet Take 100 mcg by mouth Daily.Active ARIPiprazole (ABILIFY) 2 MG tablet Take 2 mg by mouth daily.Active desvenlafaxine succinate (PRISTIQ) 100 MG TB24 Take 100 mg by mouth daily.Active simvastatin (ZOCOR) 40 MG tablet Take 40 mg by mouth nightly.Active OLANZapine (ZYPREXA) 2.5 MG tablet Take 2.5 mg by mouth nightly. 1 or 2 tab hsActive tiZANidine (ZANAFLEX) 4 MG tablet Take 4 mg by mouth every 6 hours as needed.Active lidocaine (LIDODERM) 5 % Place 1 patch onto the skin daily 12 hours on, 12 hours off. 30 patch 08/11/2017Active Social History Tobacco UseTypesPacks/DayYears UsedDateSmoking Tobacco: NeverSmokeless Tobacco: NeverAlcohol UseStandard Drinks/WeekCommentsNo0 (1 standard drink = 0.6 oz pure alcohol)CommentsNoSex and Gender InformationValueDate RecordedSex Assigned at BirthNot on fileLegal DuwJuiyzg98/10/2013 12:24 PM ESTGender IdentityNot on fileSexual OrientationNot on file Last Filed Vital Signs Vital SignReadingTime TakenCommentsBlood Rrkehulj494/7508 3:01 PM EDT Onntw63759/12/2018 1:58 PM DTUJqekbuwxtav99.4 ??C (99.4 ??F)09/22/2017 1:23 PM EDTRespiratory Egbk307909/22/2017 1:23 PM EDTOxygen Eilznlnlqj05%09/22/2017 1:23 PM EDTInhaled Oxygen Concentration--Nxoqvy069.9 kg (293 lb)09/22/2017 1:23 PM GGLSvjaqe423 cm (5' 3 )09/22/2017 1:23 PM EDTBody Mass Index51.908 1:23 PM EDT Plan of Treatment Not on file Insurance * Guarantor: Heidi You TypeRelation to PatientDate of BirthPhone Billing AddressPersonal/MlwkyaUuqx[birth year][address] [address] Care Teams Team MemberRelationshipSpecialtyStart DateEnd Mo Gilliam MD [address] [place] [address] PCP - General10/25/11
--- OUTSIDE RECORDS SUMMARY | 2025-01-27 09:22 | XMS_ITS | Clinical Summary ---
Author Organization [facility] Address [address] [place] [address] Care Team Providers Care Tech Ed Teacher Name Role Phone Mo Gilliam MD Primary Care Provider [phone] Allergies Active AllergyReactionsCriticalityNoted DateCommentsBee PollenHivesHigh 01/29/2014 Other reaction(s): Other PenicillinsHives,Shortness of ityharHhug34/19/2013 Other reaction(s): Other Medications MedicationSigDispense QuantityRefillsLast FilledStart DateEnd DateStatus ARIPiprazole (Abilify) 5 mg tablet Take 5 mg by mouth in the morning.05/02/2020ctive DULoxetine (Cymbalta) [address] capsule Take 120 mg by mouth in the morning.05/02/2020ctive hydrOXYzine HCL (Atarax) 25 mg tablet Take 25 mg by mouth in the morning, at noon, in the evening, and at bedtime. Active levothyroxine (Synthroid, Levoxyl) 100 mcg tablet Take 150 mcg by mouth before breakfast.Active pantoprazole (ProtoNix) 40 mg EC tablet Take 40 mg by mouth in the morning.05/02/2020ctive QUEtiapine (SEROquel) 100 mg tablet Take 100 mg by mouth at bedtime.07/24/2022ctive Ozempic 0.25 mg or 0.5 mg (2 mg/3 mL) pen injector INJECT 0.5 MG SUBCUTANEOUSLY ONCE WZMXFQ2309/28/2022ctive cloNIDine (Catapres) 0.1 mg tablet Take 0.1 mg by mouth two times daily.06/17/2024Active docusate sodium (Colace) 100 mg capsule Take 100 mg by mouth two times daily.Active traMADol (Ultram) 50 mg tablet Indications:S/P total knee arthroplasty, leftTake 1 tablet (50 mg) by mouth every 8 (eight) hours if needed for severe pain (8-10 pain score) for up to 15 doses. 15 tablet 5Active oxaprozin (Daypro) 600 mg tablet Indications:S/P total knee arthroplasty, right,Primary osteoarthritis of left kneeTake 1 tablet (600 mg) by mouth if needed in the morning and at bedtime ( NEEDED FOR PAIN) for upto 40 doses. 40 tablet 5Active Active Problems ProblemNoted DateDiagnosed ZsbeTdcwdrhsztgtmv53/05/2025 Assessment & Plan (03/18/2024 11:07 AM EST): No associated orders from this encounter found during lookback period of 72 hours. 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 Jbqvxot9002/10/2024H/O xmueeglacqulxg10/30/2024History of panic hgbuvqz5102/10/2024 Moderate left ventricular toeayvbwdeq66/30/8732Lykfjhgo89/30/2024re-op eevtotkctz32/30/2024bnormal EKG1rimary osteoarthritis of both knees 09/12/2022Morbid pzhlnzr4804/27/2020ssential fclsstgafokr15/15/2013Hyperlipidemia 06/25/2012Primary localized osteoarthrosis of ankle and foot06/25/2012 Encounters DateTypeDepartmentCare SvnjKdwmikcrtco62/26/2025Telephone [facility] [address] [place] [address] [place] [phone] Salima Linares MA from Last 3 Months Family History Medical HistoryRelationNameCommentsTransient ischemic attackFatherRelationName StatusCommentsFather Social History Tobacco UseTypesPacks/DayYears UsedDateSmoking Tobacco: NeverSmokeless Tobacco: Never Tobacco Cessation:Counseling Given: Not Answered Alcohol UseStandard Drinks/WeekCommentsNever0 (1 standard drink = 0.6 oz pure alcohol)[facility] UtilitiesAnswerDate RecordedIn the past 12 months has the electric, gas, oil, or water company threatened to shut off services in your home?No 03/30/2024Humiliation, Afraid, Rape, and Kick questionnaireAnswerDate Recorded Within the last year, have you been afraid of your partner or ex-partner?No 01/25/2023Within the last year, have you been humiliated or emotionally abused in other ways by your partner or ex-partner?No01/25/2023Within the last year, have you been kicked, hit, slapped, or otherwise physically hurt by your partner or ex-partner?No01/25/2023Within the last year, have you been raped or forced to have any kind of sexual activity by your partner or ex-partner?No01/25/2023 AUDIT-CAnswerDate RecordedQ1: How often do you have a drink containing alcohol? Never06/10/2023verage Number of DrinksNot on file06/10/2023Frequency of Binge DrinkingNot on file06/10/2023Overall Financial Resource Strain (CARDIA)Answer Date RecordedHow hard is it for you to pay for the very basics like food, housing, medical care, and heating?Not very hard06/10/2023HQ-2AnswerDate RecordedPatient Health Questionnaire-2 Iblan218Finj[facility] [facility] - Occupational Stress QuestionnaireAnswerDate RecordedDo you feel stress - tense, restless, nervous, or anxious, or unable to sleep at night because yourmind is troubled all the time - these days?Not at all06/10/2023 Exercise Vital SignAnswerDate RecordedOn average, how many days per week do you engage in moderate to strenuous exercise (like a brisk walk)?0 days01/25/2023On average, how many minutes do you engage in exercise at this level?0 min 12/15/2023UT Safety & EnvironmentAnswerDate RecordedWithin the last year, have you been afraid of your partner or ex-partner?No01/25/2023Within the last year, have you been humiliated or emotionally abused in other ways by your partner or ex-partner?No01/25/2023Within the last year, have you been kicked, hit, slapped, or otherwise physically hurt by your partner or ex-partner?No01/25/2023Within the last year, have you been raped or forced to have any kind of sexual activity by your partner or ex-partner?No01/25/2023hysically or Sexually AbusedNot on file01/25/2023TransportationAnswerDate RecordedIn the past 12 months, has lack of transportation kept you from medical appointments or from getting medications?No06/10/2023In the past 12 months, has lack of transportation kept you from meetings, work, or from getting things needed for daily living?No 06/10/2023Housing Stability Vital SignAnswerDate RecordedIn the last 12 months, was there a time when you were not able to pay the mortgage or rent on time?No 01/25/2023Number of Times Moved in the Last YearNot on file01/25/2023Homeless in the Last YearNot on file01/25/2023Hunger Vital SignAnswerDate RecordedWithin the past 12 months, you worried that your food would run out before you got the money to buymore.Never true01/25/2023Within the past 12 months, the food you bought just didn't last and you didn't have money to get more.Never true 01/25/2023CommentsNoSex and Gender InformationValueDate RecordedSex Assigned at BirthNot on fileLegal RjdUgduga41/29/2022 9:42 PM EDTGender Identity Not on fileSexual OrientationNot on file Last Filed Vital Signs Vital SignReadingTime TakenCommentsBlood Lcjbbdik851/68003/18/2024 4:50 PM EST Fhiir6331 4:50 PM NZKNqxqvhmkvsm23.1 ??C (97 ??F)03/18/2024 3:45 PM EST Respiratory Vjcz500203/18/2024 4:50 PM ESTOxygen Bjbykyrvyv15%03/18/2024 4:50 PM ESTInhaled Oxygen Concentration--Agwrga364 kg (260 lb)05/20/2024 2:13 PM EDT Lpdjkm269.5 cm (5' 2 )05/20/2024 2:13 PM EDTBody Mass Index47.55005/20/2024 2:13 PM EDT Plan of Treatment Health MaintenanceDue DateLast DoneCommentsCT Emppihllnqjt45/20/1956olonoscopy 1955olorectal Cancer Jfpiqsmuj34/20/1956Diabetes: Hemoglobin A1C 1955FIT-DNA1955FIT1955FOBT1955Medicare Annual Wellness (AWV)1955 6880Wcqbdqbebxdrq52/20/1956Diabetes: Retinopathy Owbfultzm84/20/1966 Diabetes: Urine Protein Yugoufeiu92/20/1975Adult Tzyboym7409/30/1977Mammogram 1995COVID-19 Vaccine ( season)509/06/2023, 02/14/2023, 06/22/2021, Additional history existsInfluenza Vaccine (#1)/06/2023, 01/28/2023, 12/01/2021, Additional history existsDepression Wtmnmvfuu76/09/2026 05/20/2024Fall Risk Uxfjcgkkv64Zoster VaccinesCompleted 12/01/2021, 06/03/2021neumococcal Vaccine: 50+ TywkdOvxnilheu57/18/2023, 06/03/2021HIB VaccinesAged OutNo longer eligible based on patient's age to complete this topicHPV VaccinesAged OutNo longer eligible based on patient's age to complete this topicIPV VaccinesAged OutNo longer eligible based on patient's age to complete this topicMeningococcal B VaccineAged OutNo longer eligible based on patient's age to complete this topicMeningococcal VaccineAged OutNo longer eligible based on patient's age to complete this topicRotavirus Vaccines Aged OutNo longer eligible based on patient's age to complete this topic Medical Devices ImplantedTypeAreaManufacturerDevice IdentifierSfulton county health centerf Expiration DateModel / Serial / LotCement,Bone,R,1x40us - [id number] Implanted:Qty: 1 on 10/03/2022 by Jacob Noriega MD at [facility] CementRight: [id number]/31/2025 [id number] / / [id number],Bone,R,1x40us - [id number] Implanted:Qty: 1 on 03/18/2024 by Jacob Noriega MD at [facility] CementLeft: [id number]/31/2026 [id number] / / [id number],Bone,R,1x40us - [id number] Implanted:Qty: 1 on 03/18/2024 by Jacob Noriega MD at [facility] CementLeft: [id number]/31/2026 [id number] / / [id number] Base,[place],#4 - [id number] Implanted:Qty: 1 on 10/03/2022 [facility] JointRight: KneeSSHA [id number]-057 / / [id number],Cemented,Ts,93s59mu - [id number] Implanted:Qty: 1 on 10/03/2022 by Jacob Noriega MD at [facility] JointRight: KneeSTRYNEVA [id number] / / [id number] Base,[place],#4 - [id number] Implanted:Qty: 1 on 03/18/2024 by [facility] JointLeft: KneeSTRYNEVA [id number]-O-565 / / [id number],Triathlon,X3,95c49gc - [id number] Implanted:Qty: 1 on 03/18/2024 by [facility] Joint[facility]: Jovani [id number]-D-195-O / / [id number],Triathlon,Lft,4 - [id number] Implanted:Qty: 1 on 03/18/2024 by [facility]: [id number]-U-337 / / [id number],Triathlon,Psx3,4,13mm - [id number] Implanted:Qty: 1 on 03/18/2024 by [facility]: [id number]-Y-751-P / / [id number],Cemented,Ts,15u76mq - [id number] Implanted:Qty: 1 on 03/18/2024 by [facility] JointLeft: [employer] [id number]-H-601 / / [id number] Posterior Stabilized Femoral Implanted:Qty: 1 on 10/03/2022 by [facility]: Lijit [id number] 5515-F-402 / / [id number] X3 Asymmetric Patella Implanted:Qty: 1 on 10/03/2022 by [facility]: [id number] 4602-U-710-E / / [id number] X3 Tibial Bearing Insert-Ps Implanted:Qty: 1 on 10/03/2022 by [facility] Jovani [id number]/26/2027 2173-O-033-E / / [id number] Insurance Advance Directives * Full Code (Latest Code Status on File) Date ActivatedDate InactivatedComments03/18/2024 2:31 PM2 8:14 PM * Full Code Date ActivatedDate InactivatedComments10/03/2022 1:14 PM10/03/2022 6:46 PM Care Teams Team MemberRelationshipSpecialtyStart DateEnd Date Mo Gilliam MD [address] [facility] [place] [address] [facility]
[2025-01-27 10:04] LABS: Hematocrit 40.4 % (36.0-48.0); Hemoglobin 13.3 g/dL (12.0-16.0); Immature Granulocytes Abs Auto 0.03 10^3/uL (0.00-0.03); Immature Granulocytes Pct Auto 0.4 % (0.0-0.5); Lymphocytes Absolute Auto 1.8 10^3/uL (1.2-3.8); Mean Corpuscular HGB Conc 32.9 g/dL (29.9-35.2); Mean Corpuscular Hemoglobin 29.8 pg (26.7-34.0); Mean Corpuscular Volume 90.6 fL (81.0-99.0); Platelet Count 261 10^3/uL (150-450); Red Blood Count 4.46 10^6/uL (4.20-5.40); White Blood Count 7.6 10^3/uL (4.0-11.0)
[2025-01-27 11:23] LABS: Alanine Aminotransferase 27 U/L (14-59); Albumin Globulin Ratio 1.1; Albumin Level 3.6 g/dL (3.4-5.0); Alkaline Phosphatase 93 U/L (46-116); Anion Gap 14.7; Aspartate Amino Transferase 16 U/L (15-37); Blood Urea Nitrogen 19.0 mg/dL (7.0-18.0); Calcium 9.0 mg/dL (8.5-10.1); Carbon Dioxide 26.7 mmol/L (21.0-32.0); Chloride 105 mmol/L (98-107); Cholesterol 194 mg/dL (<=200); Estimated GFR (African America >60 (>=60 mL/min/1.73m^2); Estimated GFR (Non-African Ame >60 (>=60 mL/min/1.73m^2); Free T3 1.97 pg/mL (2.18-3.98); Globulin 3.3 g/dL; Glucose 93 mg/dL (74-106); HDL Cholesterol 43 mg/dL (40-60); Potassium 4.4 mmol/L (3.5-5.1); Sodium 142 mmol/L (136-145); Thyroid Stimulating Hormone 3.173 uIU/mL (0.358-3.740); Total Protein 6.9 g/dL (6.4-8.2); Triglycerides 143 mg/dL (<=150); VLDL CHOLESTEROL 28.6 mg/dL
== END 2025-01-27 09:11 | disposition home or self-care (01) ==
LOC: LAB 09:18
PROVIDERS: PCP Family Medicine; Visit Provider Family Medicine
DX: F51.04 Psychophysiologic insomnia (principal); I10 Essential (primary) hypertension; Z68.42 Body mass index [BMI] 45.0-49.9, adult; E11.9 Type 2 diabetes mellitus without complications
CPT/HCPCS: 36415; 80053; 80061; 83036; 84436; 84443; 84481; 85025